=== PATIENT | male | born 1985 | race Caucasian/White ===

== ENCOUNTER 2016-03-03 15:15 | Emergency (ER) | payer OTHER ==
[~2016-03-03 15:15] MED LIST: FLOM5CAP PO; IBUP200C PO; PERC5TAB6 PO
[2016-03-03] MEDS ORDERED: KETOROLAC 30 MG/ML VIAL (J1885) As Ordered ONE (16:23)
[2016-03-03 16:46] LABS: BASO # 0.1 K/mm3 (0.0-0.2); BASO % 1.1 % (0.0-1.0); EOS # 0.3 K/mm3 (0.0-0.50); EOS % 3.9 % (0.0-3.0); LARGE UNSTAINED CELL # 0.1 K/mm3 (0.0-0.4); LARGE UNSTAINED CELL % 1.9 % (0.0-4.0); LYMPH % 26.4 % (24.0-44.0); MEAN CORPUSCULAR HEMOGLOBIN 30.7 pg (27.0-33.0); MEAN CORPUSCULAR HGB CONC 35.5 g/dl (32.0-36.5); MEAN CORPUSCULAR VOLUME 86.4 fl (80.0-96.0); MONO # 0.4 K/mm3 (0.0-0.8); MONO % 5.6 % (0.0-5.0); NEUTROPHILS # 4.4 K/mm3 (1.8-7.7); PLATELET COUNT, AUTOMATED 255 k/mm3 (150-450); WHITE BLOOD COUNT 7.1 K/mm3 (4.0-10.0)
[2016-03-03 16:55] LABS: ALBUMIN 4.2 GM/DL (3.2-5.2); ALBUMIN/GLOBULIN RATIO 1.24 (1.00-1.93); ALKALINE PHOSPHATASE 66 U/L (45-117); ALT/SGPT 78 U/L (12-78); ANION GAP 8 MEQ/L (8-16); AST/SGOT 33 U/L (15-37); BILIRUBIN,DIRECT 0.1 MG/DL (0.0-0.2); BILIRUBIN,TOTAL 0.3 MG/DL (0.2-1.0); BLOOD UREA NITROGEN 17 MG/DL (7-18); CARBON DIOXIDE LEVEL 24 MEQ/L (21-32); CHLORIDE LEVEL 108 MEQ/L (98-107); CREATININE FOR GFR 0.96 MG/DL (0.70-1.30); GLOMERULAR FILTRATION RATE > 60.0 (>60); GLUCOSE, FASTING 84 MG/DL (70-105); POTASSIUM SERUM 4.5 MEQ/L (3.5-5.1); SODIUM LEVEL 140 MEQ/L (136-145); TOTAL PROTEIN 7.6 GM/DL (6.4-8.2)
--- NOTE | 2016-03-03 17:54 | EDDOCDS ---
Physician Documentation [facility] Name: Manuel Duran Age: 30 yrs Sex: Male : 1985 Arrival Date: 03/03/2016 Time: 15:15 Bed I2 / M2 Private MD: [facility] - Ad[facility] Disposition: 03/03/16 17:46 Discharged to Home/Self Care. Impression: Urinary tract infection, site not specified - with mild hydronephrosis on the right kidney with stent in place, Otitis media, unspecified, right ear. - Condition is Stable. - Discharge Instructions: Otitis Media, Adult, Urinary Tract Infection. - Prescriptions for Amoxicillin 875 mg Oral Tablet - take 1 tablet by ORAL route every 12 hours for 10 days; 20 tablet. Cipro 500 mg Oral Tablet - take 1 tablet by ORAL route every 12 hours; 14 tablet. [place] 5- 325 mg Oral Tablet - take 1 tablet by ORAL route every 6 hours As needed MDD: 4 tabs; 15 tablet. - Medication Reconciliation, Local Pharmacy Hours form. - Follow up: Emergency Department; When: As needed; Reason: Worsening of conditions. Follow up: Vince Fam; When: at your scheduled appointment on 03/09/16; Reason: Recheck today's complaints, Continuance of care. - Problem is new. - Symptoms have improved. Historical: - Allergies: no known allergies; - Home Meds: 1. ketorolac 10 mg Oral tab 1 tab every 4 hours (Last dose: 03/01/2016) 2. "sinus medication" (Last dose: 03/02/2016 21:00) - PMHx: back pain; IBS; Kidney stones; - PSHx: surgery for kidney stones; Colonoscopy; right lithotripsy with stent placement; - Social history: Smoking status: Patient uses tobacco products, current every day smoker. Patient/guardian denies using alcohol, street drugs, No barriers to communication noted, The patient speaks fluent Georgian, Speaks appropriately for age. - Family history: Not pertinent. - : The pt / caregiver states he / she is not on anticoagulants. Home medication list is obtained from the patient. - Exposure Risk Screening:: None identified. Vital Signs: 03/03 15:16 BP 172 / 109; Pulse 81; Resp 18 S; Temp 97.7; Pulse Ox 97% on R/A; Weight 149.69 kg / dd6 330.01 lbs (M); Height 6 ft. 1 in. (185.42 cm) (R); 15:36 BP 146 / 86 RA Sitting (man/lg); rs6 17:37 BP 168 / 86; Pulse 59; Resp 18; Pulse Ox 97% ; Pain 0/10; jrd 17:50 Temp 97.1(O); dsf 15:16 Body Mass Index 43.54 (149.69 kg, 185.42 cm) dd6 MDM: 15:21 Recheck B/P ordered. dt4 16:14 ketorolac 30 mg IVP once ordered. dt4 16:14 IV Saline Lock ordered. dt4 16:14 Undress patient appropriately for examination ordered. dt4 16:15 Basic Metabolic Profile Ordered. EDMS 16:15 CBC with Diff Ordered. EDMS 16:15 Lipase Ordered. EDMS 16:15 Liver Profile Ordered. EDMS 16:15 Urinalysis Ordered. EDMS 16:15 Urine Culture Ordered. EDMS 16:15 CRP Ordered. EDMS 16:15 NOTHING BY MOUTH+DIET ordered. EDMS 16:15 Renal US Ordered. EDMS 16:24 [facility] Payment Agreement was scanned into [employer] and attached to record. dm19 16:24 Financial registration complete. dm19 Administered Medications: 16:30 Drug: ketorolac 30 mg [ketorolac 30 mg/mL (1 mL) injection solution (1 mL)] Route: IVP; dsf Site: right antecubital; Signatures: Dispatcher [employer] EDMS Dyan Bhatia RN RN dsf Jeanine Heller RN RN ttb Tschudi, Diane, ANNABELLA PA-Jose Rafael dt4 Ya Leung RN RN kc3 Simi Morales dm19 The chart was reviewed and I authenticate all verbal orders and agree with the evaluation and treatment provided.Attachments: 16:[address] [facility] Payment Agreement dm19 MTDD
--- NOTE | 2016-03-03 17:54 | EDDOCDS ---
Nurse's Notes [facility] Name: Manuel Duran Age: 30 yrs Sex: Male : 1985 Arrival Date: 03/03/2016 Time: 15:15 Bed I2 / M2 Private MD: [facility] - Ad[facility] Diagnosis: Urinary tract infection, site not specified-with mild hydronephrosis on the right kidney with stent in place;Otitis media, unspecified, right ear Presentation: 03/03 15:18 Presenting complaint: Patient states: he had a lithotripsy last week and pain is now on ttb both sides. Hematuria. Pt has stent on right. Acute neurological deficits are not present. Mechanism of Injury: recent surgery. Adult Sepsis Screening: The patient does not have new or worsening altered mentation. Patient's respiratory rate is less than 22. Systolic blood pressure is greater than 100. Patient has a qSOFA score of 0- Negative Sepsis Screen. Suicide/Homicide risk assessment- the patient denies having any suicidal and/or homicidal ideations and does not present with any other emotional, behavioral or mental health complaints. Status: Patient is not a director of in service education or dependent. Transition of care: patient was not received from another setting of care. 15:18 Acuity: CAM Level 3 ttb 15:18 Method Of Arrival: Walkin/Carried/Asstd ttb Triage Assessment: 15:21 General: Appears in no apparent distress, uncomfortable, well nourished, well groomed, ttb Behavior is appropriate for age, cooperative, pleasant. Pain: Location: bilat flank/back pain, right ear 6/10. HIV screening NA for this visit Offered previously. Neurological: Level of Consciousness is awake, alert. EENT: Reports nasal congestion nasal discharge pain in right ear. Cardiovascular: Chest pain is denied. Respiratory: No deficits noted. Airway is patent Denies cough, shortness of breath. GI: Reports lower abdominal pain, Denies nausea, vomiting. : Reports hematuria. Derm: Skin is normal. Musculoskeletal: Range of motion intact in all extremities. Historical: - Allergies: no known allergies; - Home Meds: 1. ketorolac 10 mg Oral tab 1 tab every 4 hours (Last dose: 03/01/2016) 2. "sinus medication" (Last dose: 03/02/2016 21:00) - PMHx: back pain; IBS; Kidney stones; - PSHx: surgery for kidney stones; Colonoscopy; right lithotripsy with stent placement; - Social history: Smoking status: Patient uses tobacco products, current every day smoker. Patient/guardian denies using alcohol, street drugs, No barriers to communication noted, The patient speaks fluent Irish, Speaks appropriately for age. - Family history: Not pertinent. - : The pt / caregiver states he / she is not on anticoagulants. Home medication list is obtained from the patient. - Exposure Risk Screening:: None identified. Screenin:31 Screening information is obtained from the patient. Fall risk: No risks identified. kc3 Assistance ADL's: requires no assistance with activities of daily living. Abuse/DV Screen: The patient / caregiver reports he/she is: not in a situation that causes fear, pain or injury. Nutritional screening: No deficits noted. Advance Directives: Currently, there is a health care proxy, Esteban Duran, father. home support is adequate. Assessment: 16:27 General: Appears in no apparent distress, comfortable, Behavior is appropriate for age, kc3 cooperative. Pain: Location: back, right lower quadrant and left lower quadrant. Neurological: Level of Consciousness is awake, alert, obeys commands, Oriented to person, place, time. Respiratory: Respiratory effort is even, unlabored, Respiratory pattern is regular, symmetrical. : Reports hematuria pain lower quadrant(s) prior to urination. Derm: Skin is pink, warm & dry. 17:50 General: Appears in no apparent distress, comfortable, Behavior is appropriate for age, dsf cooperative. Neurological: Level of Consciousness is awake, alert, Oriented to person, place, time. Cardiovascular: Capillary refill < 3 seconds. Respiratory: Airway is patent Respiratory effort is even, unlabored, Respiratory pattern is regular, symmetrical. Derm: Skin is pink, warm & dry. Vital Signs: 15:16 BP 172 / 109; Pulse 81; Resp 18 S; Temp 97.7; Pulse Ox 97% on R/A; Weight 149.69 kg dd6 (M); Height 6 ft. 1 in. (185.42 cm) (R); 15:36 BP 146 / 86 RA Sitting (man/lg); rs6 17:37 BP 168 / 86; Pulse 59; Resp 18; Pulse Ox 97% ; Pain 0/10; jrd 17:50 Temp 97.1(O); dsf 15:16 Body Mass Index 43.54 (149.69 kg, 185.42 cm) dd6 Vitals: 15:16 Log In Time: March 03, 2016 at 15:14. dd6 ED Course: 15:16 Patient visited by Pancho Hernandez PCA. dd6 15:16 [facility] is Private Physician. dd6 15:16 Patient moved to Waiting dd6 15:17 Patient moved to Pre RCE dd6 15:19 Triage Initiated ttb 15:36 Patient visited by Genevieve Polanco PCA. rs6 15:49 Patient moved to Triage 3 ead 16:05 [facility] dt4 16:05 Kateryna Patel MD is Attending Physician. dt4 16:05 Patient visited by Simi Hannah PA-C. dt4 16:16 Patient moved to I2 / M2 ttb 16:24 [facility] Payment Agreement was scanned into [employer] and attached to record. dm19 16:27 CRP Sent. kc3 16:27 Basic Metabolic Profile Sent. kc3 16:27 CBC with Diff Sent. kc3 16:27 Lipase Sent. kc3 16:27 Liver Profile Sent. kc3 16:31 The patient / caregiver is instructed regarding the plan of care and ED course. kc3 16:31 Inserted saline lock: 18 gauge in right antecubital area and blood collected. The kc3 patient tolerated the procedure well. 16:32 Patient visited by Ya Leung RN. kc3 17:38 Patient visited by Atif Nicole PCA. jrd 17:44 Vince Fam is Referral Physician. dt4 17:50 Discontinued lock intact, bleeding controlled, pressure dressing applied, No dsf redness/swelling at site. No procedures done that require assistance. Administered Medications: 16:30 Drug: ketorolac 30 mg [ketorolac 30 mg/mL (1 mL) injection solution (1 mL)] Route: IVP; dsf Site: right antecubital; Order Results: Lab Order: Basic Metabolic Profile; SPEC'M 03/03/16 16:17 Test: GLUCOSE, FASTING; Value: 84; Range: 70-105; Units: MG/DL; Status: F Test: BLOOD UREA NITROGEN; Value: 17; Range: 7-18; Units: MG/DL; Status: F Test: CREATININE FOR GFR; Value: 0.96; Range: 0.70-1.30; Units: MG/DL; Status: F Test: GLOMERULAR FILTRATION RATE; Value: > 60.0; Range: >60; Status: F Test: SODIUM LEVEL; Value: 140; Range: 136-145; Units: MEQ/L; Status: F Test: POTASSIUM SERUM; Value: 4.5; Range: 3.5-5.1; Units: MEQ/L; Status: F Test: CHLORIDE LEVEL; Value: 108; Range: 98-107; Abnormal: Above high normal; Units: MEQ/L; Status: F Test: CARBON DIOXIDE LEVEL; Value: 24; Range: 21-32; Units: MEQ/L; Status: F Test: ANION GAP; Value: 8; Range: 8-16; Units: MEQ/L; Status: F Test: CALCIUM LEVEL; Value: 9.0; Range: 8.5-10.1; Units: MG/DL; Status: F Test Note: ; Units are mL/min/1.73 m2 Chronic Kidney Disease Staging per NKF: Stage I & II GFR >=60 Normal to Mildly Decreased Stage III GFR 30-59 Moderately Decreased Stage IV GFR 15-29 Severely Decreased Stage V GFR <15 Very Little GFR Left ESRD GFR <15 on COATING MACHINE FEEDER Lab Order: CBC with Diff; SPEC'M 03/03/16 16:17 Test: WHITE BLOOD COUNT; Value: 7.1; Range: 4.0-10.0; Units: K/mm3; Status: F Test: RED BLOOD COUNT; Value: 5.51; Range: 4.30-6.10; Units: M/mm3; Status: F Test: HEMOGLOBIN; Value: 16.9; Range: 14.0-18.0; Units: g/dl; Status: F Test: HEMATOCRIT; Value: 47.5; Range: 42.0-52.0; Units: %; Status: F Test: MEAN CORPUSCULAR VOLUME; Value: 86.4; Range: 80.0-96.0; Units: fl; Status: F Test: MEAN CORPUSCULAR HEMOGLOBIN; Value: 30.7; Range: 27.0-33.0; Units: pg; Status: F Test: MEAN CORPUSCULAR HGB CONC; Value: 35.5; Range: 32.0-36.5; Units: g/dl; Status: F Test: RED CELL DISTRIBUTION WIDTH; Value: 13.0; Range: 11.5-14.5; Units: %; Status: F Test: PLATELET COUNT, AUTOMATED; Value: 255; Range: 150-450; Units: k/mm3; Status: F Test: NEUTROPHILS %; Value: 61.0; Range: 36.0-66.0; Units: %; Status: F Test: LYMPH %; Value: 26.4; Range: 24.0-44.0; Units: %; Status: F Test: MONO %; Value: 5.6; Range: 0.0-5.0; Abnormal: Above high normal; Units: %; Status: F Test: EOS %; Value: 3.9; Range: 0.0-3.0; Abnormal: Above high normal; Units: %; Status: F Test: BASO %; Value: 1.1; Range: 0.0-1.0; Abnormal: Above high normal; Units: %; Status: F Test: LARGE UNSTAINED CELL %; Value: 1.9; Range: 0.0-4.0; Units: %; Status: F Test: NEUTROPHILS #; Value: 4.4; Range: 1.8-7.7; Units: K/mm3; Status: F Test: LYMPH #; Value: 2.0; Range: 1.5-6.5; Units: K/mm3; Status: F Test: MONO #; Value: 0.4; Range: 0.0-0.8; Units: K/mm3; Status: F Test: EOS #; Value: 0.3; Range: 0.0-0.50; Units: K/mm3; Status: F Test: BASO #; Value: 0.1; Range: 0.0-0.2; Units: K/mm3; Status: F Test: LARGE UNSTAINED CELL #; Value: 0.1; Range: 0.0-0.4; Units: K/mm3; Status: F Lab Order: Lipase; SPEC'M 03/03/16 16:17 Test: LIPASE; Value: 142; Range: 73-393; Units: U/L; Status: F Lab Order: Liver Profile; SPEC'M 03/03/16 16:17 Test: AST/SGOT; Value: 33; Range: 15-37; Units: U/L; Status: F Test: ALT/SGPT; Value: 78; Range: 12-78; Units: U/L; Status: F Test: ALKALINE PHOSPHATASE; Value: 66; Range: 45-117; Units: U/L; Status: F Test: BILIRUBIN,TOTAL; Value: 0.3; Range: 0.2-1.0; Units: MG/DL; Status: F Test: BILIRUBIN,DIRECT; Value: 0.1; Range: 0.0-0.2; Units: MG/DL; Status: F Test: TOTAL PROTEIN; Value: 7.6; Range: 6.4-8.2; Units: GM/DL; Status: F Test: ALBUMIN; Value: 4.2; Range: 3.2-5.2; Units: GM/DL; Status: F Test: ALBUMIN/GLOBULIN RATIO; Value: 1.24; Range: 1.00-1.93; Status: F Lab Order: Urinalysis; SPEC'M 03/03/16 16:17 Test: APPEARANCE, URINE; Value: CLOUDY; Range: CLEAR; Abnormal: Above high normal; Status: F Test: COLOR, URINE; Value: YELLOW; Range: YELLOW; Status: F Test: PH,URINE; Value: 5.0; Range: 5.0-9.0; Units: UNITS; Status: F Test: SPECIFIC GRAVITY URINE AUTO; Value: 1.017; Range: 1.002-1.035; Status: F Test: PROTEIN, URINE AUTO; Value: 2+; Range: NEGATIVE; Abnormal: Above high normal; Units: mg/dL; Status: F Test: GLUCOSE, URINE (UA) AUTO; Value: NEGATIVE; Range: NEGATIVE; Units: mg/dL; Status: F Test: KETONE, URINE AUTO; Value: NEGATIVE; Range: NEGATIVE; Units: mg/dL; Status: F Test: UROBILINOGEN, URINE AUTO; Value: 0.2; Range: 0.0-2.0; Units: mg/dL; Status: F Test: BILIRUBIN, URINE AUTO; Value: NEGATIVE; Range: NEGATIVE; Status: F Test: NITRITE, URINE AUTO; Value: NEGATIVE; Range: NEGATIVE; Status: F Test: LEUKOCYTE ESTERASE, URINE AUTO; Value: 2+; Range: NEGATIVE; Abnormal: Above high normal; Status: F Test: BLOOD, URINE BLOOD; Value: 3+; Range: NEGATIVE; Abnormal: Above high normal; Status: F Test: WBC, URINE AUTO; Value: 22; Range: 0-3; Abnormal: Above high normal; Units: /HPF; Status: F Test: RBC, URINE AUTO; Value: TNTC; Range: 0-3; Abnormal: Above high normal; Units: /HPF; Status: F Test: BACTERIA, URINE AUTO; Value: 1+; Range: NEGATIVE; Abnormal: Above high normal; Status: F Test: SQUAMOUS EPITHELIAL CELL UR AU; Value: 0; Range: 0-6; Units: /HPF; Status: F Test: MUCUS, URINE; Value: SMALL; Range: NEGATIVE; Status: F Test: HYALINE CAST, URINE AUTO; Value: 0; Range: 0-1; Units: /LPF; Status: F Lab Order: CRP; SPEC'M 03/03/16 16:17 Test: C REACTIVE PROTEIN QUANTITATIV; Value: 0.44; Range: 0.00-0.30; Abnormal: Above high normal; Units: MG/DL; Status: F Outcome: 17:46 Discharge ordered by Provider. dt4 17:51 Discharge Assessment: Patient awake, alert and oriented x 3. No cognitive and/or dsf functional deficits noted. Patient verbalized understanding of disposition instructions. patient administered narcotics - no. The following High Risk Discharge criteria are identified: None. Discharged to home ambulatory. Condition: stable. Discharge instructions given to patient, Instructed on discharge instructions, follow up and referral plans. medication usage, no driving heavy equipment, Demonstrated understanding of instructions, medications, Pt was receptive of discharge instructions/ teaching. Prescriptions given X 3. Ultrasound Study completed. Property :Personal belongings accompany Pt. 17:54 Patient left the ED. dsf Signatures: Pancho Hernandez, REGIONAL BUSINESS MANAGER REGIONAL BUSINESS MANAGER dd6 Dyan Bhatia RN RN dsf Jeanine Heller RN RN Chyna YatesRN RN Simi Godoy, PA-C PA-C dt4 Atif Nicole, REGIONAL BUSINESS MANAGER REGIONAL BUSINESS MANAGER jrd Genevieve Polanco, REGIONAL BUSINESS MANAGER REGIONAL BUSINESS MANAGER rs6 Ya Leung,RN RN kc3 Simi Morales dm19 ROCÍOD
--- NOTE | 2016-03-03 18:23 | REP ---
RENAL AND BLADDER ULTRASOUND: Real-time sonographic evaluation of the kidneys is performed. Kidneys are normal in size and echotexture. Right kidney measuring 12.9 x 6.0 x 5.5 cm and left kidney 13.2 x 5.4 x 5.3 cm. There is mild right hydronephrosis. There is no left hydronephrosis. There may be a tiny subcentimeter stone in the upper pole of the left kidney. Urinary bladder is not well distended. There is a ureteral stent seen in the urinary bladder. IMPRESSION: Mild right hydronephrosis. No left hydronephrosis. Signed by Tomas Hansen MD 03/03/2016 07:17 P
--- NOTE | 2016-03-05 18:54 | EDDOCDS ---
Physician Documentation [facility] Name: Manuel Duran Age: 30 yrs Sex: Male : 1985 Arrival Date: 03/03/2016 Time: 15:15 Bed I2 / M2 Private MD: [facility] Disposition: 03/03/16 17:46 Discharged to Home/Self Care. Impression: Urinary tract infection, site not specified - with mild hydronephrosis on the right kidney with stent in place, Otitis media, unspecified, right ear. - Condition is Stable. - Discharge Instructions: Otitis Media, Adult, Urinary Tract Infection. - Prescriptions for Amoxicillin 875 mg Oral Tablet - take 1 tablet by ORAL route every 12 hours for 10 days; 20 tablet. Cipro 500 mg Oral Tablet - take 1 tablet by ORAL route every 12 hours; 14 tablet. [place] 5- 325 mg Oral Tablet - take 1 tablet by ORAL route every 6 hours As needed MDD: 4 tabs; 15 tablet. - Medication Reconciliation, Local Pharmacy Hours form. - Follow up: Emergency Department; When: As needed; Reason: Worsening of conditions. Follow up: Vince Fam; When: at your scheduled appointment on 03/09/16; Reason: Recheck today's complaints, Continuance of care. - Problem is new. - Symptoms have improved. Historical: - Allergies: no known allergies; - Home Meds: 1. ketorolac 10 mg Oral tab 1 tab every 4 hours (Last dose: 03/01/2016) 2. "sinus medication" (Last dose: 03/02/2016 21:00) - PMHx: back pain; IBS; Kidney stones; - PSHx: surgery for kidney stones; Colonoscopy; right lithotripsy with stent placement; - Social history: Smoking status: Patient uses tobacco products, current every day smoker. Patient/guardian denies using alcohol, street drugs, No barriers to communication noted, The patient speaks fluent Spanish, Speaks appropriately for age. - Family history: Not pertinent. - : The pt / caregiver states he / she is not on anticoagulants. Home medication list is obtained from the patient. - Exposure Risk Screening:: None identified. Vital Signs: 03/03 15:16 BP 172 / 109; Pulse 81; Resp 18 S; Temp 97.7; Pulse Ox 97% on R/A; Weight 149.69 kg / dd6 330.01 lbs (M); Height 6 ft. 1 in. (185.42 cm) (R); 15:36 BP 146 / 86 RA Sitting (man/lg); rs6 17:37 BP 168 / 86; Pulse 59; Resp 18; Pulse Ox 97% ; Pain 0/10; jrd 17:50 Temp 97.1(O); dsf 15:16 Body Mass Index 43.54 (149.69 kg, 185.42 cm) dd6 MDM: 15:21 Recheck B/P ordered. dt4 16:14 ketorolac 30 mg IVP once ordered. dt4 16:14 IV Saline Lock ordered. dt4 16:14 Undress patient appropriately for examination ordered. dt4 16:15 Basic Metabolic Profile Ordered. EDMS 16:15 CBC with Diff Ordered. EDMS 16:15 Lipase Ordered. EDMS 16:15 Liver Profile Ordered. EDMS 16:15 Urinalysis Ordered. EDMS 16:15 Urine Culture Ordered. EDMS 16:15 CRP Ordered. EDMS 16:15 NOTHING BY MOUTH+DIET ordered. EDMS 16:15 Renal US Ordered. EDMS 16:24 [facility] Payment Agreement was scanned into [employer] and attached to record. dm19 16:24 Financial registration complete. 03/05 08:23 T-Sheet-- Draft Copy was scanned into [employer] and attached to record. gb Administered Medications: 03/03 16:30 Drug: ketorolac 30 mg [ketorolac 30 mg/mL (1 mL) injection solution (1 mL)] Route: IVP; dsf Site: right antecubital; Signatures: Dispatcher [employer] EDMS Yael Quesada, Reg Reg gb Dyan Bhatia RN RN dsf Jeanine Heller RN RN ttb Simi Hannah PA-C PA-C dt4 Ya Leung RN RN apple3 Simi Morales dm19 The chart was reviewed and I authenticate all verbal orders and agree with the evaluation and treatment provided.Attachments: 16:24 [facility] Payment Agreement dm19 03/05 08:23 T-Sheet-- Draft Copy gb Chart Complete MTDD
--- NOTE | 2016-03-05 18:55 | EDDOCDS ---
Physician Documentation [facility] Name: Manuel Duran Age: 30 yrs Sex: Male : 1985 Arrival Date: 03/03/2016 Time: 15:15 Bed I2 / M2 Private MD: [facility] Disposition: 03/03/16 17:46 Discharged to Home/Self Care. Impression: Urinary tract infection, site not specified - with mild hydronephrosis on the right kidney with stent in place, Otitis media, unspecified, right ear. - Condition is Stable. - Discharge Instructions: Otitis Media, Adult, Urinary Tract Infection. - Prescriptions for Amoxicillin 875 mg Oral Tablet - take 1 tablet by ORAL route every 12 hours for 10 days; 20 tablet. Cipro 500 mg Oral Tablet - take 1 tablet by ORAL route every 12 hours; 14 tablet. [place] 5- 325 mg Oral Tablet - take 1 tablet by ORAL route every 6 hours As needed MDD: 4 tabs; 15 tablet. - Medication Reconciliation, Local Pharmacy Hours form. - Follow up: Emergency Department; When: As needed; Reason: Worsening of conditions. Follow up: Vince Fam; When: at your scheduled appointment on 03/09/16; Reason: Recheck today's complaints, Continuance of care. - Problem is new. - Symptoms have improved. Historical: - Allergies: no known allergies; - Home Meds: 1. ketorolac 10 mg Oral tab 1 tab every 4 hours (Last dose: 03/01/2016) 2. "sinus medication" (Last dose: 03/02/2016 21:00) - PMHx: back pain; IBS; Kidney stones; - PSHx: surgery for kidney stones; Colonoscopy; right lithotripsy with stent placement; - Social history: Smoking status: Patient uses tobacco products, current every day smoker. Patient/guardian denies using alcohol, street drugs, No barriers to communication noted, The patient speaks fluent Lao, Speaks appropriately for age. - Family history: Not pertinent. - : The pt / caregiver states he / she is not on anticoagulants. Home medication list is obtained from the patient. - Exposure Risk Screening:: None identified. Vital Signs: 03/03 15:16 BP 172 / 109; Pulse 81; Resp 18 S; Temp 97.7; Pulse Ox 97% on R/A; Weight 149.69 kg / dd6 330.01 lbs (M); Height 6 ft. 1 in. (185.42 cm) (R); 15:36 BP 146 / 86 RA Sitting (man/lg); rs6 17:37 BP 168 / 86; Pulse 59; Resp 18; Pulse Ox 97% ; Pain 0/10; jrd 17:50 Temp 97.1(O); dsf 15:16 Body Mass Index 43.54 (149.69 kg, 185.42 cm) dd6 MDM: 15:21 Recheck B/P ordered. dt4 16:14 ketorolac 30 mg IVP once ordered. dt4 16:14 IV Saline Lock ordered. dt4 16:14 Undress patient appropriately for examination ordered. dt4 16:15 Basic Metabolic Profile Ordered. EDMS 16:15 CBC with Diff Ordered. EDMS 16:15 Lipase Ordered. EDMS 16:15 Liver Profile Ordered. EDMS 16:15 Urinalysis Ordered. EDMS 16:15 Urine Culture Ordered. EDMS 16:15 CRP Ordered. EDMS 16:15 NOTHING BY MOUTH+DIET ordered. EDMS 16:15 Renal US Ordered. EDMS 16:24 [facility] Payment Agreement was scanned into [email or web address] and attached to record. dm19 16:24 Financial registration complete. 03/05 08:23 T-Sheet-- Draft Copy was scanned into [email or web address] and attached to record. gb Administered Medications: 03/03 16:30 Drug: ketorolac 30 mg [ketorolac 30 mg/mL (1 mL) injection solution (1 mL)] Route: IVP; dsf Site: right antecubital; Signatures: Dispatcher [employer] EDMS Yael Quesada, Reg Reg gb Dyan Bhatia RN RN dsf Jeanine Heller RN RN ttb Simi Hannah PA-C PA-C dt4 Ya Leung RN RN apple3 Simi Morales dm19 The chart was reviewed and I authenticate all verbal orders and agree with the evaluation and treatment provided.Attachments: 16:24 [facility] Payment Agreement dm19 03/05 08:23 T-Sheet-- Draft Copy gb Chart Complete MTDD
--- NOTE | 2016-03-05 18:55 | EDDOCDS ---
Nurse's Notes [facility] Name: Manuel Duran Age: 30 yrs Sex: Male : 1985 Arrival Date: 03/03/2016 Time: 15:15 Bed I2 / M2 Private MD: [facility] Diagnosis: Urinary tract infection, site not specified-with mild hydronephrosis on the right kidney with stent in place;Otitis media, unspecified, right ear Presentation: 03/03 15:18 Presenting complaint: Patient states: he had a lithotripsy last week and pain is now on ttb both sides. Hematuria. Pt has stent on right. Acute neurological deficits are not present. Mechanism of Injury: recent surgery. Adult Sepsis Screening: The patient does not have new or worsening altered mentation. Patient's respiratory rate is less than 22. Systolic blood pressure is greater than 100. Patient has a qSOFA score of 0- Negative Sepsis Screen. Suicide/Homicide risk assessment- the patient denies having any suicidal and/or homicidal ideations and does not present with any other emotional, behavioral or mental health complaints. 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 Transition of care: patient was not received from another setting of care. 15:18 Acuity: CAM Level 3 ttb 15:18 Method Of Arrival: Walkin/Carried/Asstd ttb Triage Assessment: 15:21 General: Appears in no apparent distress, uncomfortable, well nourished, well groomed, ttb Behavior is appropriate for age, cooperative, pleasant. Pain: Location: bilat flank/back pain, right ear 6/10. HIV screening NA for this visit Offered previously. Neurological: Level of Consciousness is awake, alert. EENT: Reports nasal congestion nasal discharge pain in right ear. Cardiovascular: Chest pain is denied. Respiratory: No deficits noted. Airway is patent Denies cough, shortness of breath. GI: Reports lower abdominal pain, Denies nausea, vomiting. : Reports hematuria. Derm: Skin is normal. Musculoskeletal: Range of motion intact in all extremities. Historical: - Allergies: no known allergies; - Home Meds: 1. ketorolac 10 mg Oral tab 1 tab every 4 hours (Last dose: 03/01/2016) 2. "sinus medication" (Last dose: 03/02/2016 21:00) - PMHx: back pain; IBS; Kidney stones; - PSHx: surgery for kidney stones; Colonoscopy; right lithotripsy with stent placement; - Social history: Smoking status: Patient uses tobacco products, current every day smoker. Patient/guardian denies using alcohol, street drugs, No barriers to communication noted, The patient speaks fluent Bahamian, Speaks appropriately for age. - Family history: Not pertinent. - : The pt / caregiver states he / she is not on anticoagulants. Home medication list is obtained from the patient. - Exposure Risk Screening:: None identified. Screenin:31 Screening information is obtained from the patient. Fall risk: No risks identified. kc3 Assistance ADL's: requires no assistance with activities of daily living. Abuse/DV Screen: The patient / caregiver reports he/she is: not in a situation that causes fear, pain or injury. Nutritional screening: No deficits noted. Advance Directives: Currently, there is a health care proxy, Esteban Duran, father. home support is adequate. Assessment: 16:27 General: Appears in no apparent distress, comfortable, Behavior is appropriate for age, kc3 cooperative. Pain: Location: back, right lower quadrant and left lower quadrant. Neurological: Level of Consciousness is awake, alert, obeys commands, Oriented to person, place, time. Respiratory: Respiratory effort is even, unlabored, Respiratory pattern is regular, symmetrical. : Reports hematuria pain lower quadrant(s) prior to urination. Derm: Skin is pink, warm & dry. 17:50 General: Appears in no apparent distress, comfortable, Behavior is appropriate for age, dsf cooperative. Neurological: Level of Consciousness is awake, alert, Oriented to person, place, time. Cardiovascular: Capillary refill < 3 seconds. Respiratory: Airway is patent Respiratory effort is even, unlabored, Respiratory pattern is regular, symmetrical. Derm: Skin is pink, warm & dry. Vital Signs: 15:16 BP 172 / 109; Pulse 81; Resp 18 S; Temp 97.7; Pulse Ox 97% on R/A; Weight 149.69 kg dd6 (M); Height 6 ft. 1 in. (185.42 cm) (R); 15:36 BP 146 / 86 RA Sitting (man/lg); rs6 17:37 BP 168 / 86; Pulse 59; Resp 18; Pulse Ox 97% ; Pain 0/10; jrd 17:50 Temp 97.1(O); dsf 15:16 Body Mass Index 43.54 (149.69 kg, 185.42 cm) dd6 Vitals: 15:16 Log In Time: March 03, 2016 at 15:14. dd6 ED Course: 15:16 Patient visited by Pancho Hernandez PCA. dd6 15:16 [facility] is Private Physician. dd6 15:16 Patient moved to Waiting dd6 15:17 Patient moved to Pre RCE dd6 15:19 Triage Initiated ttb 15:36 Patient visited by Genevieve Polanco, JS. rs6 15:49 Patient moved to Triage 3 ead 16:05 [facility]. dt4 16:05 Kateryna Patel MD is Attending Physician. dt4 16:05 Patient visited by Simi Hannah PA-C. dt4 16:16 Patient moved to I2 / M2 ttb 16:24 [facility] Payment Agreement was scanned into [employer] and attached to record. dm19 16:27 CRP Sent. kc3 16:27 Basic Metabolic Profile Sent. kc3 16:27 CBC with Diff Sent. kc3 16:27 Lipase Sent. kc3 16:27 Liver Profile Sent. kc3 16:31 The patient / caregiver is instructed regarding the plan of care and ED course. kc3 16:31 Inserted saline lock: 18 gauge in right antecubital area and blood collected. The kc3 patient tolerated the procedure well. 16:32 Patient visited by Ya Leung RN. kc3 17:38 Patient visited by Atif Nicole PCA. jrd 17:44 Vince Fam is Referral Physician. dt4 17:50 Discontinued lock intact, bleeding controlled, pressure dressing applied, No dsf redness/swelling at site. No procedures done that require assistance. 19:14 Renal US Returned. EDMS 03/05 08:23 T-Sheet-- Draft Copy was scanned into [employer] and attached to record. gb Administered Medications: 03/03 16:30 Drug: ketorolac 30 mg [ketorolac 30 mg/mL (1 mL) injection solution (1 mL)] Route: IVP; dsf Site: right antecubital; Order Results: Lab Order: Basic Metabolic Profile; SPEC'M 03/03/16 16:17 Test: GLUCOSE, FASTING; Value: 84; Range: 70-105; Units: MG/DL; Status: F Test: BLOOD UREA NITROGEN; Value: 17; Range: 7-18; Units: MG/DL; Status: F Test: CREATININE FOR GFR; Value: 0.96; Range: 0.70-1.30; Units: MG/DL; Status: F Test: GLOMERULAR FILTRATION RATE; Value: > 60.0; Range: >60; Status: F Test: SODIUM LEVEL; Value: 140; Range: 136-145; Units: MEQ/L; Status: F Test: POTASSIUM SERUM; Value: 4.5; Range: 3.5-5.1; Units: MEQ/L; Status: F Test: CHLORIDE LEVEL; Value: 108; Range: 98-107; Abnormal: Above high normal; Units: MEQ/L; Status: F Test: CARBON DIOXIDE LEVEL; Value: 24; Range: 21-32; Units: MEQ/L; Status: F Test: ANION GAP; Value: 8; Range: 8-16; Units: MEQ/L; Status: F Test: CALCIUM LEVEL; Value: 9.0; Range: 8.5-10.1; Units: MG/DL; Status: F Test Note: ; Units are mL/min/1.73 m2 Chronic Kidney Disease Staging per NKF: Stage I & II GFR >=60 Normal to Mildly Decreased Stage III GFR 30-59 Moderately Decreased Stage IV GFR 15-29 Severely Decreased Stage V GFR <15 Very Little GFR Left ESRD GFR <15 on 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 Lab Order: CBC with Diff; SPEC'M 03/03/16 16:17 Test: WHITE BLOOD COUNT; Value: 7.1; Range: 4.0-10.0; Units: K/mm3; Status: F Test: RED BLOOD COUNT; Value: 5.51; Range: 4.30-6.10; Units: M/mm3; Status: F Test: HEMOGLOBIN; Value: 16.9; Range: 14.0-18.0; Units: g/dl; Status: F Test: HEMATOCRIT; Value: 47.5; Range: 42.0-52.0; Units: %; Status: F Test: MEAN CORPUSCULAR VOLUME; Value: 86.4; Range: 80.0-96.0; Units: fl; Status: F Test: MEAN CORPUSCULAR HEMOGLOBIN; Value: 30.7; Range: 27.0-33.0; Units: pg; Status: F Test: MEAN CORPUSCULAR HGB CONC; Value: 35.5; Range: 32.0-36.5; Units: g/dl; Status: F Test: RED CELL DISTRIBUTION WIDTH; Value: 13.0; Range: 11.5-14.5; Units: %; Status: F Test: PLATELET COUNT, AUTOMATED; Value: 255; Range: 150-450; Units: k/mm3; Status: F Test: NEUTROPHILS %; Value: 61.0; Range: 36.0-66.0; Units: %; Status: F Test: LYMPH %; Value: 26.4; Range: 24.0-44.0; Units: %; Status: F Test: MONO %; Value: 5.6; Range: 0.0-5.0; Abnormal: Above high normal; Units: %; Status: F Test: EOS %; Value: 3.9; Range: 0.0-3.0; Abnormal: Above high normal; Units: %; Status: F Test: BASO %; Value: 1.1; Range: 0.0-1.0; Abnormal: Above high normal; Units: %; Status: F Test: LARGE UNSTAINED CELL %; Value: 1.9; Range: 0.0-4.0; Units: %; Status: F Test: NEUTROPHILS #; Value: 4.4; Range: 1.8-7.7; Units: K/mm3; Status: F Test: LYMPH #; Value: 2.0; Range: 1.5-6.5; Units: K/mm3; Status: F Test: MONO #; Value: 0.4; Range: 0.0-0.8; Units: K/mm3; Status: F Test: EOS #; Value: 0.3; Range: 0.0-0.50; Units: K/mm3; Status: F Test: BASO #; Value: 0.1; Range: 0.0-0.2; Units: K/mm3; Status: F Test: LARGE UNSTAINED CELL #; Value: 0.1; Range: 0.0-0.4; Units: K/mm3; Status: F Lab Order: Lipase; SPEC'M 03/03/16 16:17 Test: LIPASE; Value: 142; Range: 73-393; Units: U/L; Status: F Lab Order: Liver Profile; SPEC'M 03/03/16 16:17 Test: AST/SGOT; Value: 33; Range: 15-37; Units: U/L; Status: F Test: ALT/SGPT; Value: 78; Range: 12-78; Units: U/L; Status: F Test: ALKALINE PHOSPHATASE; Value: 66; Range: 45-117; Units: U/L; Status: F Test: BILIRUBIN,TOTAL; Value: 0.3; Range: 0.2-1.0; Units: MG/DL; Status: F Test: BILIRUBIN,DIRECT; Value: 0.1; Range: 0.0-0.2; Units: MG/DL; Status: F Test: TOTAL PROTEIN; Value: 7.6; Range: 6.4-8.2; Units: GM/DL; Status: F Test: ALBUMIN; Value: 4.2; Range: 3.2-5.2; Units: GM/DL; Status: F Test: ALBUMIN/GLOBULIN RATIO; Value: 1.24; Range: 1.00-1.93; Status: F Lab Order: Urinalysis; [facility]' 03/03/16 16:17 Test: APPEARANCE, URINE; Value: CLOUDY; Range: CLEAR; Abnormal: Above high normal; Status: F Test: COLOR, URINE; Value: YELLOW; Range: YELLOW; Status: F Test: PH,URINE; Value: 5.0; Range: 5.0-9.0; Units: UNITS; Status: F Test: SPECIFIC GRAVITY URINE AUTO; Value: 1.017; Range: 1.002-1.035; Status: F Test: PROTEIN, URINE AUTO; Value: 2+; Range: NEGATIVE; Abnormal: Above high normal; Units: mg/dL; Status: F Test: GLUCOSE, URINE (UA) AUTO; Value: NEGATIVE; Range: NEGATIVE; Units: mg/dL; Status: F Test: KETONE, URINE AUTO; Value: NEGATIVE; Range: NEGATIVE; Units: mg/dL; Status: F Test: UROBILINOGEN, URINE AUTO; Value: 0.2; Range: 0.0-2.0; Units: mg/dL; Status: F Test: BILIRUBIN, URINE AUTO; Value: NEGATIVE; Range: NEGATIVE; Status: F Test: NITRITE, URINE AUTO; Value: NEGATIVE; Range: NEGATIVE; Status: F Test: LEUKOCYTE ESTERASE, URINE AUTO; Value: 2+; Range: NEGATIVE; Abnormal: Above high normal; Status: F Test: BLOOD, URINE BLOOD; Value: 3+; Range: NEGATIVE; Abnormal: Above high normal; Status: F Test: WBC, URINE AUTO; Value: 22; Range: 0-3; Abnormal: Above high normal; Units: /HPF; Status: F Test: RBC, URINE AUTO; Value: TNTC; Range: 0-3; Abnormal: Above high normal; Units: /HPF; Status: F Test: BACTERIA, URINE AUTO; Value: 1+; Range: NEGATIVE; Abnormal: Above high normal; Status: F Test: SQUAMOUS EPITHELIAL CELL UR AU; Value: 0; Range: 0-6; Units: /HPF; Status: F Test: MUCUS, URINE; Value: SMALL; Range: NEGATIVE; Status: F Test: HYALINE CAST, URINE AUTO; Value: 0; Range: 0-1; Units: /LPF; Status: F Lab Order: Urine Culture; SPEC'M 03/03/16 16:17 Test: URINE CULTURE; Value: URINE CULTURE RESULT NO GROWTH; Status: F Lab Order: CRP; SPEC'M 03/03/16 16:17 Test: C REACTIVE PROTEIN QUANTITATIV; Value: 0.44; Range: 0.00-0.30; Abnormal: Above high normal; Units: MG/DL; Status: F Radiology Order: Renal US Test: Renal US REASON FOR EXAMINATION: RECENT LITHOTRIPSY, BILAT FLANK PAIN; RENAL AND BLADDER ULTRASOUND:; ; Real-time sonographic evaluation of the kidneys is performed. Kidneys are normal; in size and echotexture. Right kidney measuring 12.9 x 6.0 x 5.5 cm and left; kidney 13.2 x 5.4 x 5.3 cm. There is mild right hydronephrosis. There is no left; hydronephrosis. There may be a tiny subcentimeter stone in the upper pole of the; left kidney. Urinary bladder is not well distended. There is a ureteral stent; seen in the urinary bladder.; ; IMPRESSION:; ; Mild right hydronephrosis. No left hydronephrosis.; ; ; Signed by; Tomas Hansen MD 03/03/2016 07:17 P; Outcome: 17:46 Discharge ordered by Provider. dt4 17:51 Discharge Assessment: Patient awake, alert and oriented x 3. No cognitive and/or dsf functional deficits noted. Patient verbalized understanding of disposition instructions. patient administered narcotics - no. The following High Risk Discharge criteria are identified: None. Discharged to home ambulatory. Condition: stable. Discharge instructions given to patient, Instructed on discharge instructions, follow up and referral plans. medication usage, no driving heavy equipment, Demonstrated understanding of instructions, medications, Pt was receptive of discharge instructions/ teaching. Prescriptions given X 3. Ultrasound Study completed. Property :Personal belongings accompany Pt. 17:54 Patient left the ED. dsf Signatures: Dispatcher [employer] EDMS Yael Quesada, Reg Reg gb Pancho Hernandez, DRYWALL PROFESSIONAL DRYWALL PROFESSIONAL dd6 Dyan Bhatia,JIMENEZ RN dsf Jeanine Heller, RN RN ttChyna Ventura,RN RN Simi Godoy, PA-C PA-C dt4 Atif Nicole, DRYWALL PROFESSIONAL DRYWALL PROFESSIONAL jrd Genevieve Polanco, DRYWALL PROFESSIONAL DRYWALL PROFESSIONAL rs6 Ya Leung,JIMENEZ RN apple3 Simi Morales dm19 Chart Complete MTDD
== END 2016-03-03 17:54 | disposition home or self-care (01) ==
LOC: M ED 15:15
DX: H66.91 Otitis media, unspecified, right ear (principal); N39.0 Urinary tract infection, site not specified; N13.30 Unspecified hydronephrosis; Z96.0 Presence of urogenital implants; M54.9 Dorsalgia, unspecified; K58.9 Irritable bowel syndrome, unspecified; Z87.442 Personal history of urinary calculi; F17.210 Nicotine dependence, cigarettes, uncomplicated
CPT/HCPCS: 36415; 76775; 80048; 80076; 81001; 83690; 85025; 86140; 87086; 96374; 99284; J1885

== ENCOUNTER 2016-03-08 22:59 | Emergency (ER) | payer OTHER ==
[2016-03-08 23:33] LABS: YEAST LIKE CELL URINE AUTO LARGE
== END 2016-03-09 02:28 | disposition left against medical advice (07) ==
LOC: M ED 22:59
DX: R10.9 Unspecified abdominal pain (principal); M54.9 Dorsalgia, unspecified; K58.9 Irritable bowel syndrome, unspecified; F17.210 Nicotine dependence, cigarettes, uncomplicated; Z79.899 Other long term (current) drug therapy

== ENCOUNTER 2016-03-17 13:34 | Emergency (ER) | payer OTHER ==
[2016-03-17] MEDS ORDERED: KETOROLAC 30 MG/ML VIAL (J1885) As Ordered ONE (15:00)
[2016-03-17] MEDS ORDERED: GASTROGRAFIN SOLUTION 30ML (Q9963) As Ordered ONE (15:09)
[2016-03-17 15:18] LABS: BASO # 0.1 K/mm3 (0.0-0.2); BASO % 1.4 % (0.0-1.0); EOS # 0.3 K/mm3 (0.0-0.50); EOS % 4.2 % (0.0-3.0); LARGE UNSTAINED CELL # 0.1 K/mm3 (0.0-0.4); LARGE UNSTAINED CELL % 1.4 % (0.0-4.0); LYMPH % 31.2 % (24.0-44.0); MEAN CORPUSCULAR HEMOGLOBIN 30.7 pg (27.0-33.0); MEAN CORPUSCULAR HGB CONC 35.5 g/dl (32.0-36.5); MEAN CORPUSCULAR VOLUME 86.6 fl (80.0-96.0); MONO # 0.3 K/mm3 (0.0-0.8); MONO % 5.2 % (0.0-5.0); NEUTROPHILS # 3.5 K/mm3 (1.8-7.7); NEUTROPHILS % 56.6 % (36.0-66.0); PLATELET COUNT, AUTOMATED 246 k/mm3 (150-450); RED CELL DISTRIBUTION WIDTH 12.9 % (11.5-14.5); WHITE BLOOD COUNT 6.2 K/mm3 (4.0-10.0)
[2016-03-17 15:34] LABS: ALBUMIN 4.2 GM/DL (3.2-5.2); ALBUMIN/GLOBULIN RATIO 1.35 (1.00-1.93); ALKALINE PHOSPHATASE 71 U/L (45-117); ALT/SGPT 54 U/L (12-78); AMYLASE 39 U/L (25-115); ANION GAP 9 MEQ/L (8-16); AST/SGOT 22 U/L (15-37); BILIRUBIN,DIRECT < 0.1 MG/DL (0.0-0.2); BILIRUBIN,TOTAL 0.2 MG/DL (0.2-1.0); BLOOD UREA NITROGEN 20 MG/DL (7-18); CALCIUM LEVEL 9.1 MG/DL (8.5-10.1); CARBON DIOXIDE LEVEL 24 MEQ/L (21-32); CHLORIDE LEVEL 109 MEQ/L (98-107); CREATININE FOR GFR 1.13 MG/DL (0.70-1.30); GLOMERULAR FILTRATION RATE > 60.0 (>60); GLUCOSE, FASTING 93 MG/DL (70-105); POTASSIUM SERUM 4.4 MEQ/L (3.5-5.1); SODIUM LEVEL 142 MEQ/L (136-145); TOTAL PROTEIN 7.3 GM/DL (6.4-8.2)
--- NOTE | 2016-03-17 17:43 | REP ---
CT ABDOMEN AND PELVIS WITH ORAL CONTRAST ONLY, 03/17/2016: Comparison made with prior CT abdomen and pelvis 02/25/2016 at which time the patient had an obstructing 7 x 9 mm calculus within the right proximal ureter. At this time there is mild to moderate residual right renal caliectasis and pelviectasis with tapering of the pelvic portion of the right ureter. There is no residual stone within the right ureter. A small amount of periureteral stranding. There are a few tiny nonobstructing left nephrocalculi. Mild edematous changes are seen in the right kidney. The stomach and small bowel are within normal limits. The terminal ileum and the appendix are normal. Abdominal aorta is of normal course and caliber. The bladder is contracted. The prostate is not enlarged. There is mild to moderate diverticulosis within the sigmoid colon. There is no free air or ascites. IMPRESSION: Mild to moderate residual right hydronephrosis and hydroureter persists despite interval passage/resolution of the previously obstructing right proximal ureteral stone. Sigmoid diverticulosis. MTDD
[2016-03-17] MEDS ORDERED: NORCO, ANEXSIA 5/325MG TABLET (HYDROcodone/ACETAMINOPHEN) As Ordered ONE (18:09)
--- NOTE | 2016-03-17 18:18 | EDDOCDS ---
Nurse's Notes [facility] Name: Manuel Duran Age: 30 yrs Sex: Male : 1985 Arrival Date: 03/17/2016 Time: 13:34 Bed I4 / M4 Private MD: Trini Yeboah K. Diagnosis: Lower abdominal pain, unspecified-RIGHT LATERAL ABDOMINAL PAIN, WITH RIGHT HYDROURETERONEPHROSIS S/P STENT REMOVAL Presentation: 03/17 13:41 Presenting complaint: Patient states: right side abdominal pain radiating to right ck1 flank for one week. C/O right ear "plugged". Risk factors: the patient reports not having a history of previous torsion. Adult Sepsis Screening: The patient does not have new or worsening altered mentation. Patient's respiratory rate is less than 22. Systolic blood pressure is greater than 100. Patient has a qSOFA score of 0- Negative Sepsis Screen. Suicide/Homicide risk assessment- the patient denies having any suicidal and/or homicidal ideations and does not present with any other emotional, behavioral or mental health complaints. Status: Patient is not a agricultural services director or dependent. Transition of care: patient was not received from another setting of care. 13:41 Acuity: CAM Level 3 ck1 13:41 Method Of Arrival: Walkin/Carried/Asstd ck1 Triage Assessment: 13:44 General: Appears in no apparent distress, comfortable, Behavior is appropriate for age, ck1 cooperative. Pain: Location: right upper quadrant and right lower quadrant Pain currently is 2 out of 10 on a pain scale. HIV screening NA for this visit Offered previously. Neurological: Level of Consciousness is awake, alert, obeys commands, Oriented to person, place, time. Respiratory: Respiratory effort is unlabored, Respiratory pattern is regular, symmetrical. GI: Denies nausea, vomiting. : Denies burning with urination, urinary frequency. Derm: Skin is intact, is healthy with good turgor, Skin is pink, warm & dry. Historical: - Allergies: No known drug Allergies; - Home Meds: 1. Dicyclomine Unknown Oral PRN (Last dose: 03/16/2016 20:00) - PMHx: Kidney stones; IBS; back pain; - PSHx: Lithotripsy; Colonoscopy; - Social history: Smoking status: Patient uses tobacco products, heavy tobacco smoker. No barriers to communication noted, The patient speaks fluent Georgian, Speaks appropriately for age. - : The pt / caregiver states he / she is not on anticoagulants. Home medication list is obtained from the patient. - Exposure Risk Screening:: None identified. Screenin:15 Screening information is obtained from the patient. Fall risk: No risks identified. jmk Assistance ADL's: requires no assistance with activities of daily living. Abuse/DV Screen: The patient / caregiver reports he/she is: not in a situation that causes fear, pain or injury. Nutritional screening: No deficits noted. Advance Directives: Currently, there is no health care proxy. There is no active DNR order. There is no living will. 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 Advance directive information has not previously been placed in an [facility] medical record. home support is adequate. Assessment: 15:17 General: Appears in no apparent distress. Cardiovascular: No deficits noted. jmk Respiratory: Onset: The symptoms/episode began/occurred No deficits noted. GI: Abdomen is non- distended obese, Bowel sounds present X 4 quads. Abd is soft X 4 quads Abd is tender to palpation in right upper quadrant and right lower quadrant. 16:49 General: Appears reports 2/10 discomfort , yet readily bends over to put shoes on, and jmk ambulates with brisk upright gait.. Vital Signs: 13:36 BP 165 / 86; Pulse 67; Resp 18; Temp 96.8(O); Pulse Ox 97% on R/A; Weight 154.22 kg elp (M); Height 6 ft. 1 in. (185.42 cm); 18:15 BP 134 / 72; Pulse 70; Resp 16; Temp 98.2; jmk 13:36 Body Mass Index 44.86 (154.22 kg, 185.42 cm) [facility] Vitals: 13:36 Log In Time: March 17, 2016 at 13:34. [facility] ED Course: 13:36 Patient visited by Trini Burks PCA. elp 13:36 Trini Yeboah is Private Physician. elp 13:36 Patient moved to Waiting elp 13:37 Patient visited by Trini Burks PCA. elp 13:37 Patient moved to Pre RCE elp 13:42 Triage Initiated ck1 13:45 Patient moved to Triage 2 ck1 13:46 Patient moved to Pre RCE ck1 13:46 Patient moved to Triage 2 ck1 13:46 Patient moved to Pre RCE ck1 14:04 Patient moved to Triage 1 rs6 14:10 Urinalysis Sent. rs6 14:10 Urine Culture Sent. rs6 14:14 Simi Hannah [facility]-C [facility]. dt4 14:14 Henry Lorenzo MD is Attending Physician. dt4 14:14 Patient visited by Simi Hannah PA-C. dt4 14:40 Patient moved to I4 / M4 [facility] 15:04 Patient visited by Chyna Retana RN. ead 15:04 Inserted peripheral IV: 20gauge IV in right antecubital area and blood collected. ead Patient tolerated the procedure well. 15:04 CRP Sent. ead 15:04 Basic Metabolic Profile Sent. ead 15:04 Amylase Sent. ead 15:04 Liver Profile Sent. ead 15:04 Lipase Sent. ead 15:04 CBC with Diff Sent. ead 15:17 Patient visited by Gerald Mckeon,JIMENEZ. jmk 15:27 [facility] Payment Agreement was scanned into [employer] and attached to record. gjb 15:35 Patient name changed from Manuel\\S\\Emmanuel\\S\\Renee\\S\\ to Manuel\\S\\B\\S\\Renee. EDMS 16:51 Patient visited by Gerald Mckeon,JIMENEZ. jmk 17:46 CT ABD & PELVIS: Oral Contrast Only Returned. EDMS 18:01 Patient visited by Simi Hannah PA-C. dt4 18:03 Vince Fam is Referral Physician. dt4 18:15 The patient / caregiver is instructed regarding the plan of care and ED course. jmk 18:15 Discontinued lock intact, bleeding controlled, pressure dressing applied, No jmk redness/swelling at site. No procedures done that require assistance. Administered Medications: 15:08 Drug: NS 0.9% 1000 ml Route: IV; Rate: bolus; Site: right antecubital; jmk 16:23 Follow up: IV Status: Completed infusion jmk 15:09 Drug: ketorolac 30 mg [ketorolac 30 mg/mL (1 mL) injection solution (1 mL)] Route: IVP; k Site: right antecubital; 15:16 Drug: Diatrizoate Meglumine & Sodium 10 ml [diatrizoate meglumine and diat.sodium 66 jmk %-10 % oral solution (10 mL)] Route: PO; 15:40 Drug: Diatrizoate Meglumine & Sodium 10 ml [diatrizoate meglumine and diat.sodium 66 jmk %-10 % oral solution (10 mL)] Route: PO; Order Results: Lab Order: Urinalysis; SPEC'M 03/17/16 14:08 Test: APPEARANCE, URINE; Value: CLOUDY; Range: CLEAR; Abnormal: Above high normal; Status: F Test: COLOR, URINE; Value: YELLOW; Range: YELLOW; Status: F Test: PH,URINE; Value: 5.0; Range: 5.0-9.0; Units: UNITS; Status: F Test: SPECIFIC GRAVITY URINE AUTO; Value: 1.016; Range: 1.002-1.035; Status: F Test: PROTEIN, URINE AUTO; Value: 1+; Range: NEGATIVE; Abnormal: Above high normal; Units: mg/dL; Status: F Test: GLUCOSE, URINE (UA) AUTO; Value: NEGATIVE; Range: NEGATIVE; Units: mg/dL; Status: F Test: KETONE, URINE AUTO; Value: NEGATIVE; Range: NEGATIVE; Units: mg/dL; Status: F Test: UROBILINOGEN, URINE AUTO; Value: 0.2; Range: 0.0-2.0; Units: mg/dL; Status: F Test: BILIRUBIN, URINE AUTO; Value: NEGATIVE; Range: NEGATIVE; Status: F Test: NITRITE, URINE AUTO; Value: NEGATIVE; Range: NEGATIVE; Status: F Test: LEUKOCYTE ESTERASE, URINE AUTO; Value: TRACE; Range: NEGATIVE; Abnormal: Above high normal; Status: F Test: BLOOD, URINE BLOOD; Value: 3+; Range: NEGATIVE; Abnormal: Above high normal; Status: F Test: WBC, URINE AUTO; Value: 22; Range: 0-3; Abnormal: Above high normal; Units: /HPF; Status: F Test: RBC, URINE AUTO; Value: TNTC; Range: 0-3; Abnormal: Above high normal; Units: /HPF; Status: F Test: BACTERIA, URINE AUTO; Value: NEGATIVE; Range: NEGATIVE; Status: F Test: SQUAMOUS EPITHELIAL CELL UR AU; Value: 0; Range: 0-6; Units: /HPF; Status: F Test: MUCUS, URINE; Value: SMALL; Range: NEGATIVE; Status: F Test: HYALINE CAST, URINE AUTO; Value: 0; Range: 0-1; Units: /LPF; Status: F Lab Order: Amylase; SPEC' 03/17/16 15:03 Test: AMYLASE; Value: 39; Range: 25-115; Units: U/L; Status: F Lab Order: Basic Metabolic Profile; SPEC' 03/17/16 15:03 Test: GLUCOSE, FASTING; Value: 93; Range: 70-105; Units: MG/DL; Status: F Test: BLOOD UREA NITROGEN; Value: 20; Range: 7-18; Abnormal: Above high normal; Units: MG/DL; Status: F Test: CREATININE FOR GFR; Value: 1.13; Range: 0.70-1.30; Units: MG/DL; Status: F Test: GLOMERULAR FILTRATION RATE; Value: > 60.0; Range: >60; Status: F Test: SODIUM LEVEL; Value: 142; Range: 136-145; Units: MEQ/L; Status: F Test: POTASSIUM SERUM; Value: 4.4; Range: 3.5-5.1; Units: MEQ/L; Status: F Test: CHLORIDE LEVEL; Value: 109; Range: 98-107; Abnormal: Above high normal; Units: MEQ/L; Status: F Test: CARBON DIOXIDE LEVEL; Value: 24; Range: 21-32; Units: MEQ/L; Status: F Test: ANION GAP; Value: 9; Range: 8-16; Units: MEQ/L; Status: F Test: CALCIUM LEVEL; Value: 9.1; Range: 8.5-10.1; Units: MG/DL; Status: F Test Note: ; Units are mL/min/1.73 m2 Chronic Kidney Disease Staging per NKF: Stage I & II GFR >=60 Normal to Mildly Decreased Stage III GFR 30-59 Moderately Decreased Stage IV GFR 15-29 Severely Decreased Stage V GFR <15 Very Little GFR Left ESRD GFR <15 on [facility]AGENT Lab Order: CBC with Diff; SPEC' 03/17/16 15:03 Test: WHITE BLOOD COUNT; Value: 6.2; Range: 4.0-10.0; Units: K/mm3; Status: F Test: RED BLOOD COUNT; Value: 5.03; Range: 4.30-6.10; Units: M/mm3; Status: F Test: HEMOGLOBIN; Value: 15.5; Range: 14.0-18.0; Units: g/dl; Status: F Test: HEMATOCRIT; Value: 43.6; Range: 42.0-52.0; Units: %; Status: F Test: MEAN CORPUSCULAR VOLUME; Value: 86.6; Range: 80.0-96.0; Units: fl; Status: F Test: MEAN CORPUSCULAR HEMOGLOBIN; Value: 30.7; Range: 27.0-33.0; Units: pg; Status: F Test: MEAN CORPUSCULAR HGB CONC; Value: 35.5; Range: 32.0-36.5; Units: g/dl; Status: F Test: RED CELL DISTRIBUTION WIDTH; Value: 12.9; Range: 11.5-14.5; Units: %; Status: F Test: PLATELET COUNT, AUTOMATED; Value: 246; Range: 150-450; Units: k/mm3; Status: F Test: NEUTROPHILS %; Value: 56.6; Range: 36.0-66.0; Units: %; Status: F Test: LYMPH %; Value: 31.2; Range: 24.0-44.0; Units: %; Status: F Test: MONO %; Value: 5.2; Range: 0.0-5.0; Abnormal: Above high normal; Units: %; Status: F Test: EOS %; Value: 4.2; Range: 0.0-3.0; Abnormal: Above high normal; Units: %; Status: F Test: BASO %; Value: 1.4; Range: 0.0-1.0; Abnormal: Above high normal; Units: %; Status: F Test: LARGE UNSTAINED CELL %; Value: 1.4; Range: 0.0-4.0; Units: %; Status: F Test: NEUTROPHILS #; Value: 3.5; Range: 1.8-7.7; Units: K/mm3; Status: F Test: LYMPH #; Value: 2.0; Range: 1.5-6.5; Units: K/mm3; Status: F Test: MONO #; Value: 0.3; Range: 0.0-0.8; Units: K/mm3; Status: F Test: EOS #; Value: 0.3; Range: 0.0-0.50; Units: K/mm3; Status: F Test: BASO #; Value: 0.1; Range: 0.0-0.2; Units: K/mm3; Status: F Test: LARGE UNSTAINED CELL #; Value: 0.1; Range: 0.0-0.4; Units: K/mm3; Status: F Lab Order: Lipase; SPEC'M 03/17/16 15:03 Test: LIPASE; Value: 143; Range: 73-393; Units: U/L; Status: F Lab Order: Liver Profile; SPEC' 03/17/16 15:03 Test: AST/SGOT; Value: 22; Range: 15-37; Units: U/L; Status: F Test: ALT/SGPT; Value: 54; Range: 12-78; Units: U/L; Status: F Test: ALKALINE PHOSPHATASE; Value: 71; Range: 45-117; Units: U/L; Status: F Test: BILIRUBIN,TOTAL; Value: 0.2; Range: 0.2-1.0; Units: MG/DL; Status: F Test: BILIRUBIN,DIRECT; Value: < 0.1; Range: 0.0-0.2; Units: MG/DL; Status: F Test: TOTAL PROTEIN; Value: 7.3; Range: 6.4-8.2; Units: GM/DL; Status: F Test: ALBUMIN; Value: 4.2; Range: 3.2-5.2; Units: GM/DL; Status: F Test: ALBUMIN/GLOBULIN RATIO; Value: 1.35; Range: 1.00-1.93; Status: F Lab Order: CRP; SPEC' 03/17/16 15:03 Test: C REACTIVE PROTEIN QUANTITATIV; Value: < 0.30; Range: 0.00-0.30; Units: MG/DL; Status: F Radiology Order: CT ABD & PELVIS: Oral Contrast Only Test: CT ABD & PELVIS: Oral Contrast Only REASON FOR EXAMINATION: RIGHT LATERAL ABD PAIN, RECENT STONE; CT ABDOMEN AND PELVIS WITH ORAL CONTRAST ONLY, 03/17/2016:; ; Comparison made with prior CT abdomen and pelvis 02/25/2016 at which time the; patient had an obstructing 7 x 9 mm calculus within the right proximal ureter. At; this time there is moderate residual right renal caliectasis and pelviectasis; with tapering of the pelvic portion of the right ureter. There is no residual; stone within the right ureter. A small amount of periureteral stranding. There; are a few tiny nonobstructing left nephrocalculi. Mild edematous changes are seen; in the right kidney. The stomach and small bowel are within normal limits. The; terminal ileum and the appendix are normal. Abdominal aorta is of normal course; and caliber.; ; The bladder is contracted. The prostate is not enlarged. There is mild to; moderate diverticulosis within the sigmoid colon. There is no free air or; ascites.; ; IMPRESSION:; Mild to moderate residual right hydronephrosis and hydroureter persists despite; interval passage/resolution of the previously obstructing right proximal ureteral; stone.; ; Sigmoid diverticulosis.; ; ; ; Unreviewed; Outcome: 18:05 Discharge ordered by Provider. dt4 18:15 Discharge Assessment: Patient awake, alert and oriented x 3. No cognitive and/or jmk functional deficits noted. Patient verbalized understanding of disposition instructions. patient administered narcotics - no. The following High Risk Discharge criteria are identified: None. Discharged to home ambulatory. Condition: good. Discharge instructions given to patient, Instructed on discharge instructions, follow up and referral plans. medication usage, Demonstrated understanding of instructions, medications, Pt was receptive of discharge instructions/ teaching. No special radiology studies were completed. Property :Personal belongings accompany Pt. 18:17 Patient left the ED. [facility] Signatures: Dispatcher [employer] EDMS Gerald MckeonRN RN Chiquita VallecilloRN RN ck1 Juana ChildsRN RN Trini Dunn, CHERRY PITTER CHERRY PITTER Chyna Park RN RN ead Tschudi, Diane, PA-C PA-C dt4 Genevieve Polanco, CHERRY PITTER CHERRY PITTER rs6 Domi Anne Corrections: (The following items were deleted from the chart) 13:45 13:41 Presenting complaint: Patient states: right side abdominal pain radiating to ck1 right flank for one week ck1 MTDD
--- NOTE | 2016-03-17 18:18 | EDDOCDS ---
Physician Documentation [facility] Name: Manuel Duran Age: 30 yrs Sex: Male : 1985 Arrival Date: 03/17/2016 Time: 13:34 Bed I4 / M4 Private MD: Trini Yeboah K. Disposition: 03/17/16 18:05 Discharged to Home/Self Care. Impression: Lower abdominal pain, unspecified - RIGHT LATERAL ABDOMINAL PAIN, WITH RIGHT HYDROURETERONEPHROSIS S/P STENT REMOVAL. - Condition is Stable. - Discharge Instructions: Abdominal Pain, Adult, Colic, Flank Pain. - Prescriptions for [facility] 5- 325 mg Oral Tablet - take 1 tablet by ORAL route every 6 hours As needed MDD: 4 tabs; 20 tablet. Naprosyn 500 mg Oral Tablet - take 1 tablet by ORAL route every 12 hours As needed take with food; 30 tablet. - Medication Reconciliation, Local Pharmacy Hours form. - Follow up: Emergency Department; When: As needed; Reason: Worsening of conditions. Follow up: Vince Reyes; When: Call to arrange an appointment; Reason: Wound/Symptom Recheck, If symptoms return, Recheck today's complaints, Continuance of care. - Problem is new. - Symptoms are unchanged. - Notes: TAKE THE PAIN MEDICATION DIRECTED, NEEDED. CALL AND SCHEDULE AN APPOINTMENT WITH DR. REYES IF YOUR PAIN PERSISTS OVER THE NEXT 1-2 WEEKS WITH THE PAIN MEDICATION. RETURN TO THE ER WITH ANY WORSENING SYMPTOMS. Historical: - Allergies: No known drug Allergies; - Home Meds: 1. Dicyclomine Unknown Oral PRN (Last dose: 03/16/2016 20:00) - PMHx: Kidney stones; IBS; back pain; - PSHx: Lithotripsy; Colonoscopy; - Social history: Smoking status: Patient uses tobacco products, heavy tobacco smoker. No barriers to communication noted, The patient speaks fluent Vincentian, Speaks appropriately for age. - : The pt / caregiver states he / she is not on anticoagulants. Home medication list is obtained from the patient. - Exposure Risk Screening:: None identified. Vital Signs: 03/17 13:36 BP 165 / 86; Pulse 67; Resp 18; Temp 96.8(O); Pulse Ox 97% on R/A; Weight 154.22 kg / elp 340 lbs (M); Height 6 ft. 1 in. (185.42 cm); 18:15 BP 134 / 72; Pulse 70; Resp 16; Temp 98.2; jmk 13:36 Body Mass Index 44.86 (154.22 kg, 185.42 cm) elp MDM: 14:04 Urinalysis Ordered. EDMS 14:04 Urine Culture Ordered. EDMS 14:49 NS 0.9% 1000 ml IV at bolus once ordered. dt4 14:49 ketorolac 30 mg IVP once ordered. dt4 14:49 IV Saline Lock ordered. dt4 14:49 Undress patient appropriately for examination ordered. dt4 14:49 Amylase Ordered. EDMS 14:49 Basic Metabolic Profile Ordered. EDMS 14:49 CBC with Diff Ordered. EDMS 14:49 Lipase Ordered. EDMS 14:49 Liver Profile Ordered. EDMS 14:49 CRP Ordered. EDMS 14:50 CT ABD & PELVIS: Oral Contrast Only Ordered. EDMS 14:51 NOTHING BY MOUTH+DIET ordered. EDMS 15:16 Diatrizoate Meglumine & Sodium Liquid 10 ml PO once; mix in 290cc of water ordered. k 15:18 Financial registration complete. b 15:27 [facility] Payment Agreement was scanned into [employer] and attached to record. gjb 16:22 Diatrizoate Meglumine & Sodium Liquid 10 ml PO once; mix in 290cc of water ordered. jmk 18:03 HYDROcodone-acetaminophen 5 mg-325 mg 1 tabs PO once ordered. dt4 Administered Medications: 15:08 Drug: NS 0.9% 1000 ml Route: IV; Rate: bolus; Site: right antecubital; jmk 16:23 Follow up: IV Status: Completed infusion jmk 15:09 Drug: ketorolac 30 mg [ketorolac 30 mg/mL (1 mL) injection solution (1 mL)] Route: IVP; [facility] Site: right antecubital; 15:16 Drug: Diatrizoate Meglumine & Sodium 10 ml [diatrizoate meglumine and diat.sodium 66 jmk %-10 % oral solution (10 mL)] Route: PO; 15:40 Drug: Diatrizoate Meglumine & Sodium 10 ml [diatrizoate meglumine and diat.sodium 66 jmk %-10 % oral solution (10 mL)] Route: PO; Signatures: Dispatcher [employer] Gerald Robb,RN RN Chiquita VallecilloRN RN ck1 Simi Hannah PA-C PA-C dt4 Domi Anne The chart was reviewed and I authenticate all verbal orders and agree with the evaluation and treatment provided.Attachments: 15:27 [facility] Payment Agreement louie MTDD
--- NOTE | 2016-03-19 19:18 | EDDOCDS ---
Physician Documentation [facility] Name: Manuel Duran Age: 30 yrs Sex: Male : 1985 Arrival Date: 03/17/2016 Time: 13:34 Bed I4 / M4 Private MD: Trini Yeboah K. Disposition: 03/17/16 18:05 Discharged to Home/Self Care. Impression: Lower abdominal pain, unspecified - RIGHT LATERAL ABDOMINAL PAIN, WITH RIGHT HYDROURETERONEPHROSIS S/P STENT REMOVAL. - Condition is Stable. - Discharge Instructions: Abdominal Pain, Adult, Colic, Flank Pain. - Prescriptions for [facility] 5- 325 mg Oral Tablet - take 1 tablet by ORAL route every 6 hours As needed MDD: 4 tabs; 20 tablet. Naprosyn 500 mg Oral Tablet - take 1 tablet by ORAL route every 12 hours As needed take with food; 30 tablet. - Medication Reconciliation, Local Pharmacy Hours form. - Follow up: Emergency Department; When: As needed; Reason: Worsening of conditions. Follow up: Vince Reyes; When: Call to arrange an appointment; Reason: Wound/Symptom Recheck, If symptoms return, Recheck today's complaints, Continuance of care. - Problem is new. - Symptoms are unchanged. - Notes: TAKE THE PAIN MEDICATION DIRECTED, NEEDED. CALL AND SCHEDULE AN APPOINTMENT WITH DR. REYES IF YOUR PAIN PERSISTS OVER THE NEXT 1-2 WEEKS WITH THE PAIN MEDICATION. RETURN TO THE ER WITH ANY WORSENING SYMPTOMS. Historical: - Allergies: No known drug Allergies; - Home Meds: 1. Dicyclomine Unknown Oral PRN (Last dose: 03/16/2016 20:00) - PMHx: Kidney stones; IBS; back pain; - PSHx: Lithotripsy; Colonoscopy; - Social history: Smoking status: Patient uses tobacco products, heavy tobacco smoker. No barriers to communication noted, The patient speaks fluent Burkinan, Speaks appropriately for age. - : The pt / caregiver states he / she is not on anticoagulants. Home medication list is obtained from the patient. - Exposure Risk Screening:: None identified. Vital Signs: 03/17 13:36 BP 165 / 86; Pulse 67; Resp 18; Temp 96.8(O); Pulse Ox 97% on R/A; Weight 154.22 kg / elp 340 lbs (M); Height 6 ft. 1 in. (185.42 cm); 18:15 BP 134 / 72; Pulse 70; Resp 16; Temp 98.2; jmk 13:36 Body Mass Index 44.86 (154.22 kg, 185.42 cm) elp MDM: 14:04 Urinalysis Ordered. EDMS 14:04 Urine Culture Ordered. EDMS 14:49 NS 0.9% 1000 ml IV at bolus once ordered. dt4 14:49 ketorolac 30 mg IVP once ordered. dt4 14:49 IV Saline Lock ordered. dt4 14:49 Undress patient appropriately for examination ordered. dt4 14:49 Amylase Ordered. EDMS 14:49 Basic Metabolic Profile Ordered. EDMS 14:49 CBC with Diff Ordered. EDMS 14:49 Lipase Ordered. EDMS 14:49 Liver Profile Ordered. EDMS 14:49 CRP Ordered. EDMS 14:50 CT ABD & PELVIS: Oral Contrast Only Ordered. EDMS 14:51 NOTHING BY MOUTH+DIET ordered. EDMS 15:16 Diatrizoate Meglumine & Sodium Liquid 10 ml PO once; mix in 290cc of water ordered. jmk 15:18 Financial registration complete. gjb 15:27 [facility] Payment Agreement was scanned into [employer] and attached to record. gjb 16:22 Diatrizoate Meglumine & Sodium Liquid 10 ml PO once; mix in 290cc of water ordered. jmk 18:03 HYDROcodone-acetaminophen 5 mg-325 mg 1 tabs PO once ordered. dt4 03/18 09:19 T-Sheet-- Draft Copy was scanned into [employer] and attached to record. gb 09:20 Radiology Report was scanned into [employer] and attached to record. gb Administered Medications: 03/17 15:08 Drug: NS 0.9% 1000 ml Route: IV; Rate: bolus; Site: right antecubital; jmk 16:23 Follow up: IV Status: Completed infusion jmk 15:09 Drug: ketorolac 30 mg [ketorolac 30 mg/mL (1 mL) injection solution (1 mL)] Route: IVP; k Site: right antecubital; 15:16 Drug: Diatrizoate Meglumine & Sodium 10 ml [diatrizoate meglumine and diat.sodium 66 jmk %-10 % oral solution (10 mL)] Route: PO; 15:40 Drug: Diatrizoate Meglumine & Sodium 10 ml [diatrizoate meglumine and diat.sodium 66 jmk %-10 % oral solution (10 mL)] Route: PO; Signatures: Dispatcher [employer] EDGerald Martinez,RN RN Yael Ko, Reg Reg gb Chiquita SaxenaRN RN ck1 Simi Hannah PA-C PA-C dt4 Domi Anne The chart was reviewed and I authenticate all verbal orders and agree with the evaluation and treatment provided.Attachments: 15:27 [facility] Payment Agreement gjb 03/18 09:19 T-Sheet-- Draft Copy Chart Complete MTDD
--- NOTE | 2016-03-19 19:18 | EDDOCDS ---
Nurse's Notes [facility] Name: Manuel Duran Age: 30 yrs Sex: Male : 1985 Arrival Date: 03/17/2016 Time: 13:34 Bed I4 / M4 Private MD: Trini Yeboah K. Diagnosis: Lower abdominal pain, unspecified-RIGHT LATERAL ABDOMINAL PAIN, WITH RIGHT HYDROURETERONEPHROSIS S/P STENT REMOVAL Presentation: 03/17 13:41 Presenting complaint: Patient states: right side abdominal pain radiating to right ck1 flank for one week. C/O right ear "plugged". Risk factors: the patient reports not having a history of previous torsion. Adult Sepsis Screening: The patient does not have new or worsening altered mentation. Patient's respiratory rate is less than 22. Systolic blood pressure is greater than 100. Patient has a qSOFA score of 0- Negative Sepsis Screen. Suicide/Homicide risk assessment- the patient denies having any suicidal and/or homicidal ideations and does not present with any other emotional, behavioral or mental health complaints. Status: Patient is not a business services intern or dependent. Transition of care: patient was not received from another setting of care. 13:41 Acuity: CAM Level 3 ck1 13:41 Method Of Arrival: Walkin/Carried/Asstd ck1 Triage Assessment: 13:44 General: Appears in no apparent distress, comfortable, Behavior is appropriate for age, ck1 cooperative. Pain: Location: right upper quadrant and right lower quadrant Pain currently is 2 out of 10 on a pain scale. HIV screening NA for this visit Offered previously. Neurological: Level of Consciousness is awake, alert, obeys commands, Oriented to person, place, time. Respiratory: Respiratory effort is unlabored, Respiratory pattern is regular, symmetrical. GI: Denies nausea, vomiting. : Denies burning with urination, urinary frequency. Derm: Skin is intact, is healthy with good turgor, Skin is pink, warm & dry. Historical: - Allergies: No known drug Allergies; - Home Meds: 1. Dicyclomine Unknown Oral PRN (Last dose: 03/16/2016 20:00) - PMHx: Kidney stones; IBS; back pain; - PSHx: Lithotripsy; Colonoscopy; - Social history: Smoking status: Patient uses tobacco products, heavy tobacco smoker. No barriers to communication noted, The patient speaks fluent Chilean, Speaks appropriately for age. - : The pt / caregiver states he / she is not on anticoagulants. Home medication list is obtained from the patient. - Exposure Risk Screening:: None identified. Screenin:15 Screening information is obtained from the patient. Fall risk: No risks identified. jmk Assistance ADL's: requires no assistance with activities of daily living. Abuse/DV Screen: The patient / caregiver reports he/she is: not in a situation that causes fear, pain or injury. Nutritional screening: No deficits noted. Advance Directives: Currently, there is no health care proxy. There is no active DNR order. There is no living will. There is no Power of Supervisor [place] Splitting. Advance directive information has not previously been placed in an [facility] medical record. home support is adequate. Assessment: 15:17 General: Appears in no apparent distress. Cardiovascular: No deficits noted. jmk Respiratory: Onset: The symptoms/episode began/occurred No deficits noted. GI: Abdomen is non- distended obese, Bowel sounds present X 4 quads. Abd is soft X 4 quads Abd is tender to palpation in right upper quadrant and right lower quadrant. 16:49 General: Appears reports 2/10 discomfort , yet readily bends over to put shoes on, and jmk ambulates with brisk upright gait.. Vital Signs: 13:36 BP 165 / 86; Pulse 67; Resp 18; Temp 96.8(O); Pulse Ox 97% on R/A; Weight 154.22 kg elp (M); Height 6 ft. 1 in. (185.42 cm); 18:15 BP 134 / 72; Pulse 70; Resp 16; Temp 98.2; jmk 13:36 Body Mass Index 44.86 (154.22 kg, 185.42 cm) [facility] Vitals: 13:36 Log In Time: March 17, 2016 at 13:34. [facility] ED Course: 13:36 Patient visited by Trini Burks PCA. elp 13:36 Trini Yeboah is Private Physician. elp 13:36 Patient moved to Waiting elp 13:37 Patient visited by Trini Burks PCA. elp 13:37 Patient moved to Pre RCE elp 13:42 Triage Initiated ck1 13:45 Patient moved to Triage 2 ck1 13:46 Patient moved to Pre RCE ck1 13:46 Patient moved to Triage 2 ck1 13:46 Patient moved to Pre RCE ck1 14:04 Patient moved to Triage 1 rs6 14:10 Urinalysis Sent. rs6 14:10 Urine Culture Sent. rs6 14:14 [facility] dt4 14:14 Henry Lorenzo MD is Attending Physician. dt4 14:14 Patient visited by Simi Hannah PA-C. dt4 14:40 Patient moved to I4 / M4 [facility] 15:04 Patient visited by Chyna Retana,JIMENEZ. ead 15:04 Inserted peripheral IV: 20gauge IV in right antecubital area and blood collected. ead Patient tolerated the procedure well. 15:04 CRP Sent. ead 15:04 Basic Metabolic Profile Sent. ead 15:04 Amylase Sent. ead 15:04 Liver Profile Sent. ead 15:04 Lipase Sent. ead 15:04 CBC with Diff Sent. ead 15:17 Patient visited by Gerald Mckeon,JIMENEZ. jmk 15:27 [facility] Payment Agreement was scanned into [employer] and attached to record. gjb 15:35 Patient name changed from Manuel\\S\\Emmanuel\\S\\Renee\\S\\ to Manuel\\S\\B\\S\\Renee. EDMS 16:51 Patient visited by Gerald Mckeon,JIMENEZ. jmk 17:46 CT ABD & PELVIS: Oral Contrast Only Returned. EDMS 18:01 Patient visited by Simi Hannah PA-C. dt4 18:03 Vince Fam is Referral Physician. dt4 18:15 The patient / caregiver is instructed regarding the plan of care and ED course. jmk 18:15 Discontinued lock intact, bleeding controlled, pressure dressing applied, No jmk redness/swelling at site. No procedures done that require assistance. 03/18 09:19 T-Sheet-- Draft Copy was scanned into [employer] and attached to record. gb 09:20 Radiology Report was scanned into [employer] and attached to record. gb Administered Medications: 03/17 15:08 Drug: NS 0.9% 1000 ml Route: IV; Rate: bolus; Site: right antecubital; nahunk 16:23 Follow up: IV Status: Completed infusion [facility] 15:09 Drug: ketorolac 30 mg [ketorolac 30 mg/mL (1 mL) injection solution (1 mL)] Route: IVP; [facility] Site: right antecubital; 15:16 Drug: Diatrizoate Meglumine & Sodium 10 ml [diatrizoate meglumine and diat.sodium 66 jmk %-10 % oral solution (10 mL)] Route: PO; 15:40 Drug: Diatrizoate Meglumine & Sodium 10 ml [diatrizoate meglumine and diat.sodium 66 jmk %-10 % oral solution (10 mL)] Route: PO; Order Results: Lab Order: Urinalysis; SPEC'M 03/17/16 14:08 Test: APPEARANCE, URINE; Value: CLOUDY; Range: CLEAR; Abnormal: Above high normal; Status: F Test: COLOR, URINE; Value: YELLOW; Range: YELLOW; Status: F Test: PH,URINE; Value: 5.0; Range: 5.0-9.0; Units: UNITS; Status: F Test: SPECIFIC GRAVITY URINE AUTO; Value: 1.016; Range: 1.002-1.035; Status: F Test: PROTEIN, URINE AUTO; Value: 1+; Range: NEGATIVE; Abnormal: Above high normal; Units: mg/dL; Status: F Test: GLUCOSE, URINE (UA) AUTO; Value: NEGATIVE; Range: NEGATIVE; Units: mg/dL; Status: F Test: KETONE, URINE AUTO; Value: NEGATIVE; Range: NEGATIVE; Units: mg/dL; Status: F Test: UROBILINOGEN, URINE AUTO; Value: 0.2; Range: 0.0-2.0; Units: mg/dL; Status: F Test: BILIRUBIN, URINE AUTO; Value: NEGATIVE; Range: NEGATIVE; Status: F Test: NITRITE, URINE AUTO; Value: NEGATIVE; Range: NEGATIVE; Status: F Test: LEUKOCYTE ESTERASE, URINE AUTO; Value: TRACE; Range: NEGATIVE; Abnormal: Above high normal; Status: F Test: BLOOD, URINE BLOOD; Value: 3+; Range: NEGATIVE; Abnormal: Above high normal; Status: F Test: WBC, URINE AUTO; Value: 22; Range: 0-3; Abnormal: Above high normal; Units: /HPF; Status: F Test: RBC, URINE AUTO; Value: TNTC; Range: 0-3; Abnormal: Above high normal; Units: /HPF; Status: F Test: BACTERIA, URINE AUTO; Value: NEGATIVE; Range: NEGATIVE; Status: F Test: SQUAMOUS EPITHELIAL CELL UR AU; Value: 0; Range: 0-6; Units: /HPF; Status: F Test: MUCUS, URINE; Value: SMALL; Range: NEGATIVE; Status: F Test: HYALINE CAST, URINE AUTO; Value: 0; Range: 0-1; Units: /LPF; Status: F Lab Order: Urine Culture; [facility] 03/17/16 14:08 Test: URINE CULTURE; Value: URINE CULTURE RESULT NO GROWTH; Status: F Lab Order: Amylase; [facility] 03/17/16 15:03 Test: AMYLASE; Value: 39; Range: 25-115; Units: U/L; Status: F Lab Order: Basic Metabolic Profile; [facility] 03/17/16 15:03 Test: GLUCOSE, FASTING; Value: 93; Range: 70-105; Units: MG/DL; Status: F Test: BLOOD UREA NITROGEN; Value: 20; Range: 7-18; Abnormal: Above high normal; Units: MG/DL; Status: F Test: CREATININE FOR GFR; Value: 1.13; Range: 0.70-1.30; Units: MG/DL; Status: F Test: GLOMERULAR FILTRATION RATE; Value: > 60.0; Range: >60; Status: F Test: SODIUM LEVEL; Value: 142; Range: 136-145; Units: MEQ/L; Status: F Test: POTASSIUM SERUM; Value: 4.4; Range: 3.5-5.1; Units: MEQ/L; Status: F Test: CHLORIDE LEVEL; Value: 109; Range: 98-107; Abnormal: Above high normal; Units: MEQ/L; Status: F Test: CARBON DIOXIDE LEVEL; Value: 24; Range: 21-32; Units: MEQ/L; Status: F Test: ANION GAP; Value: 9; Range: 8-16; Units: MEQ/L; Status: F Test: CALCIUM LEVEL; Value: 9.1; Range: 8.5-10.1; Units: MG/DL; Status: F Test Note: ; Units are mL/min/1.73 m2 Chronic Kidney Disease Staging per NKF: Stage I & II GFR >=60 Normal to Mildly Decreased Stage III GFR 30-59 Moderately Decreased Stage IV GFR 15-29 Severely Decreased Stage V GFR <15 Very Little GFR Left ESRD GFR <15 on D[employer]PER Lab Order: CBC with Diff; SPEC'M 03/17/16 15:03 Test: WHITE BLOOD COUNT; Value: 6.2; Range: 4.0-10.0; Units: K/mm3; Status: F Test: RED BLOOD COUNT; Value: 5.03; Range: 4.30-6.10; Units: M/mm3; Status: F Test: HEMOGLOBIN; Value: 15.5; Range: 14.0-18.0; Units: g/dl; Status: F Test: HEMATOCRIT; Value: 43.6; Range: 42.0-52.0; Units: %; Status: F Test: MEAN CORPUSCULAR VOLUME; Value: 86.6; Range: 80.0-96.0; Units: fl; Status: F Test: MEAN CORPUSCULAR HEMOGLOBIN; Value: 30.7; Range: 27.0-33.0; Units: pg; Status: F Test: MEAN CORPUSCULAR HGB CONC; Value: 35.5; Range: 32.0-36.5; Units: g/dl; Status: F Test: RED CELL DISTRIBUTION WIDTH; Value: 12.9; Range: 11.5-14.5; Units: %; Status: F Test: PLATELET COUNT, AUTOMATED; Value: 246; Range: 150-450; Units: k/mm3; Status: F Test: NEUTROPHILS %; Value: 56.6; Range: 36.0-66.0; Units: %; Status: F Test: LYMPH %; Value: 31.2; Range: 24.0-44.0; Units: %; Status: F Test: MONO %; Value: 5.2; Range: 0.0-5.0; Abnormal: Above high normal; Units: %; Status: F Test: EOS %; Value: 4.2; Range: 0.0-3.0; Abnormal: Above high normal; Units: %; Status: F Test: BASO %; Value: 1.4; Range: 0.0-1.0; Abnormal: Above high normal; Units: %; Status: F Test: LARGE UNSTAINED CELL %; Value: 1.4; Range: 0.0-4.0; Units: %; Status: F Test: NEUTROPHILS #; Value: 3.5; Range: 1.8-7.7; Units: K/mm3; Status: F Test: LYMPH #; Value: 2.0; Range: 1.5-6.5; Units: K/mm3; Status: F Test: MONO #; Value: 0.3; Range: 0.0-0.8; Units: K/mm3; Status: F Test: EOS #; Value: 0.3; Range: 0.0-0.50; Units: K/mm3; Status: F Test: BASO #; Value: 0.1; Range: 0.0-0.2; Units: K/mm3; Status: F Test: LARGE UNSTAINED CELL #; Value: 0.1; Range: 0.0-0.4; Units: K/mm3; Status: F Lab Order: Lipase; [facility] 03/17/16 15:03 Test: LIPASE; Value: 143; Range: 73-393; Units: U/L; Status: F Lab Order: Liver Profile; [facility] 03/17/16 15:03 Test: AST/SGOT; Value: 22; Range: 15-37; Units: U/L; Status: F Test: ALT/SGPT; Value: 54; Range: 12-78; Units: U/L; Status: F Test: ALKALINE PHOSPHATASE; Value: 71; Range: 45-117; Units: U/L; Status: F Test: BILIRUBIN,TOTAL; Value: 0.2; Range: 0.2-1.0; Units: MG/DL; Status: F Test: BILIRUBIN,DIRECT; Value: < 0.1; Range: 0.0-0.2; Units: MG/DL; Status: F Test: TOTAL PROTEIN; Value: 7.3; Range: 6.4-8.2; Units: GM/DL; Status: F Test: ALBUMIN; Value: 4.2; Range: 3.2-5.2; Units: GM/DL; Status: F Test: ALBUMIN/GLOBULIN RATIO; Value: 1.35; Range: 1.00-1.93; Status: F Lab Order: CRP; SPEC' 03/17/16 15:03 Test: C REACTIVE PROTEIN QUANTITATIV; Value: < 0.30; Range: 0.00-0.30; Units: MG/DL; Status: F Radiology Order: CT ABD & PELVIS: Oral Contrast Only Test: CT ABD & PELVIS: Oral Contrast Only REASON FOR EXAMINATION: RIGHT LATERAL ABD PAIN, RECENT STONE; CT ABDOMEN AND PELVIS WITH ORAL CONTRAST ONLY, 03/17/2016:; ; Comparison made with prior CT abdomen and pelvis 02/25/2016 at which time the; patient had an obstructing 7 x 9 mm calculus within the right proximal ureter.; At; this time there is mild to moderate residual right renal caliectasis and; pelviectasis; with tapering of the pelvic portion of the right ureter. There is no residual; stone within the right ureter. A small amount of periureteral stranding. There; are a few tiny nonobstructing left nephrocalculi. Mild edematous changes are; seen; in the right kidney. The stomach and small bowel are within normal limits. The; terminal ileum and the appendix are normal. Abdominal aorta is of normal course; and caliber.; ; The bladder is contracted. The prostate is not enlarged. There is mild to; moderate diverticulosis within the sigmoid colon. There is no free air or; ascites.; ; IMPRESSION:; Mild to moderate residual right hydronephrosis and hydroureter persists despite; interval passage/resolution of the previously obstructing right proximal; ureteral; stone.; ; Sigmoid diverticulosis.; ; ; MTDD Outcome: 18:05 Discharge ordered by Provider. dt4 18:15 Discharge Assessment: Patient awake, alert and oriented x 3. No cognitive and/or k functional deficits noted. Patient verbalized understanding of disposition instructions. patient administered narcotics - no. The following High Risk Discharge criteria are identified: None. Discharged to home ambulatory. Condition: good. Discharge instructions given to patient, Instructed on discharge instructions, follow up and referral plans. medication usage, Demonstrated understanding of instructions, medications, Pt was receptive of discharge instructions/ teaching. No special radiology studies were completed. Property :Personal belongings accompany Pt. 18:17 Patient left the ED. fabiana Signatures: Dispatcher [facility] Gerald Robb RN RN jmk Barnhardt, Gloria, Lux Reg Chiquita Cole RN RN ck1 Juana Childs,RN RN cjh Trini Burks, PARALEGAL SECRETARY PARALEGAL SECRETARY elp Chyna Retana,RN RN bruced Simi Hannah, ANNABELLA [place] dt4 Genevieve Polanco, PARALEGAL SECRETARY PARALEGAL SECRETARY rs6 Domi Anne Corrections: (The following items were deleted from the chart) 13:45 13:41 Presenting complaint: Patient states: right side abdominal pain radiating to ck1 right flank for one week ck1 Chart Complete MTDD
--- NOTE | 2016-03-19 19:18 | EDDOCDS ---
Physician Documentation [facility] Name: Manuel Duran Age: 30 yrs Sex: Male : 1985 Arrival Date: 03/17/2016 Time: 13:34 Bed I4 / M4 Private MD: Trini Yeboah K. Disposition: 03/17/16 18:05 Discharged to Home/Self Care. Impression: Lower abdominal pain, unspecified - RIGHT LATERAL ABDOMINAL PAIN, WITH RIGHT HYDROURETERONEPHROSIS S/P STENT REMOVAL. - Condition is Stable. - Discharge Instructions: Abdominal Pain, Adult, Colic, Flank Pain. - Prescriptions for Rillito 5- 325 mg Oral Tablet - take 1 tablet by ORAL route every 6 hours As needed MDD: 4 tabs; 20 tablet. Naprosyn 500 mg Oral Tablet - take 1 tablet by ORAL route every 12 hours As needed take with food; 30 tablet. - Medication Reconciliation, Local Pharmacy Hours form. - Follow up: Emergency Department; When: As needed; Reason: Worsening of conditions. Follow up: Vince Reyes; When: Call to arrange an appointment; Reason: Wound/Symptom Recheck, If symptoms return, Recheck today's complaints, Continuance of care. - Problem is new. - Symptoms are unchanged. - Notes: TAKE THE PAIN MEDICATION DIRECTED, NEEDED. CALL AND SCHEDULE AN APPOINTMENT WITH DR. REYES IF YOUR PAIN PERSISTS OVER THE NEXT 1-2 WEEKS WITH THE PAIN MEDICATION. RETURN TO THE ER WITH ANY WORSENING SYMPTOMS. Historical: - Allergies: No known drug Allergies; - Home Meds: 1. Dicyclomine Unknown Oral PRN (Last dose: 03/16/2016 20:00) - PMHx: Kidney stones; IBS; back pain; - PSHx: Lithotripsy; Colonoscopy; - Social history: Smoking status: Patient uses tobacco products, heavy tobacco smoker. No barriers to communication noted, The patient speaks fluent Cambodian, Speaks appropriately for age. - : The pt / caregiver states he / she is not on anticoagulants. Home medication list is obtained from the patient. - Exposure Risk Screening:: None identified. Vital Signs: 03/17 13:36 BP 165 / 86; Pulse 67; Resp 18; Temp 96.8(O); Pulse Ox 97% on R/A; Weight 154.22 kg / elp 340 lbs (M); Height 6 ft. 1 in. (185.42 cm); 18:15 BP 134 / 72; Pulse 70; Resp 16; Temp 98.2; jmk 13:36 Body Mass Index 44.86 (154.22 kg, 185.42 cm) elp MDM: 14:04 Urinalysis Ordered. EDMS 14:04 Urine Culture Ordered. EDMS 14:49 NS 0.9% 1000 ml IV at bolus once ordered. dt4 14:49 ketorolac 30 mg IVP once ordered. dt4 14:49 IV Saline Lock ordered. dt4 14:49 Undress patient appropriately for examination ordered. dt4 14:49 Amylase Ordered. EDMS 14:49 Basic Metabolic Profile Ordered. EDMS 14:49 CBC with Diff Ordered. EDMS 14:49 Lipase Ordered. EDMS 14:49 Liver Profile Ordered. EDMS 14:49 CRP Ordered. EDMS 14:50 CT ABD & PELVIS: Oral Contrast Only Ordered. EDMS 14:51 NOTHING BY MOUTH+DIET ordered. EDMS 15:16 Diatrizoate Meglumine & Sodium Liquid 10 ml PO once; mix in 290cc of water ordered. jmk 15:18 Financial registration complete. gjb 15:27 [facility] Payment Agreement was scanned into [employer] and attached to record. gjb 16:22 Diatrizoate Meglumine & Sodium Liquid 10 ml PO once; mix in 290cc of water ordered. jmk 18:03 HYDROcodone-acetaminophen 5 mg-325 mg 1 tabs PO once ordered. dt4 03/18 09:19 T-Sheet-- Draft Copy was scanned into [employer] and attached to record. gb 09:20 Radiology Report was scanned into [employer] and attached to record. gb Administered Medications: 03/17 15:08 Drug: NS 0.9% 1000 ml Route: IV; Rate: bolus; Site: right antecubital; jmk 16:23 Follow up: IV Status: Completed infusion jmk 15:09 Drug: ketorolac 30 mg [ketorolac 30 mg/mL (1 mL) injection solution (1 mL)] Route: IVP; k Site: right antecubital; 15:16 Drug: Diatrizoate Meglumine & Sodium 10 ml [diatrizoate meglumine and diat.sodium 66 jmk %-10 % oral solution (10 mL)] Route: PO; 15:40 Drug: Diatrizoate Meglumine & Sodium 10 ml [diatrizoate meglumine and diat.sodium 66 jmk %-10 % oral solution (10 mL)] Route: PO; Signatures: Dispatcher [employer] EDGerald Martinez,RN RN Yael Ko, Reg Reg gb Chiquita SaxenaRN RN ck1 Simi Hannah PA-C PA-C dt4 Domi Anne The chart was reviewed and I authenticate all verbal orders and agree with the evaluation and treatment provided.Attachments: 15:27 [facility] Payment Agreement gjb 03/18 09:19 T-Sheet-- Draft Copy Chart Complete MTDD
== END 2016-03-17 18:17 | disposition home or self-care (01) ==
LOC: M ED 13:34
DX: N13.1 Hydronephrosis with ureteral stricture, not elsewhere classified (principal); R10.9 Unspecified abdominal pain; K58.9 Irritable bowel syndrome, unspecified; M54.9 Dorsalgia, unspecified; Z79.899 Other long term (current) drug therapy; F17.200 Nicotine dependence, unspecified, uncomplicated; Z87.442 Personal history of urinary calculi
CPT/HCPCS: 36415; 74176; 80048; 80076; 81001; 82150; 83690; 85025; 86140; 87086; 96361; 96374; 99284; J1885; Q9963

== ENCOUNTER 2016-11-08 10:40 | Emergency (ER) | payer OTHER ==
[~2016-11-08] VITALS: Ht 185.4 cm; Wt 145.4 kg
[~2016-11-08 10:40] MED LIST changes: -IBUP200C PO; +IBUP200C10 PO; +PERC5TAB12 PO; -PERC5TAB6 PO
--- NOTE | 2016-11-08 12:29 | ED PDOC ---
Post-Departure Follow-Up no foreign body at time of exam, pt had no further complaints Alice Werner Nov 08, 2016 12:29
[2016-11-08 12:31] VITALS: BP 144/86
== END 2016-11-08 12:36 | disposition home or self-care (01) ==
LOC: M ED 10:40
DX: S00.451A Superficial foreign body of right ear, initial encounter (principal); X58.XXXA Exposure to other specified factors, initial encounter; Y92.89 Other specified places as the place of occurrence of the external cause; Y93.89 Activity, other specified; Y99.8 Other external cause status

== ENCOUNTER 2016-11-19 23:54 | Emergency (ER) | payer OTHER ==
[~2016-11-19] VITALS: Ht 185.4 cm; Wt 145.4 kg
[2016-11-20] MEDS ORDERED: KETOROLAC 30 MG/ML VIAL (J1885) IV ONE (00:30)
[2016-11-20] MEDS ORDERED: MORPHINE 4 MG/ML 1ML SYRINGE IV ONE (00:30)
[2016-11-20] MEDS ORDERED: ONDANSETRON 4MG/2ML VIAL (J2405) IV ONE (00:30)
[2016-11-20 00:56] LABS: BASO % 0.4 % (0.0-1.0); EOS # 0.2 K/mm3 (0.0-0.50); EOS % 3.1 % (0.0-3.0); LARGE UNSTAINED CELL # 0.2 K/mm3 (0.0-0.4); LARGE UNSTAINED CELL % 2.5 % (0.0-4.0); LYMPH # 2.6 K/mm3 (1.5-4.5); MEAN CORPUSCULAR HEMOGLOBIN 32.4 pg (27.0-33.0); MEAN CORPUSCULAR VOLUME 86.4 fl (80.0-96.0); MONO # 0.4 K/mm3 (0.0-0.8); MONO % 5.2 % (0.0-5.0); NEUTROPHILS # 3.9 K/mm3 (1.8-7.7); NEUTROPHILS % 53.7 % (36.0-66.0); PLATELET COUNT, AUTOMATED 234 k/mm3 (150-450); RED CELL DISTRIBUTION WIDTH 11.9 % (11.5-14.5); WHITE BLOOD COUNT 7.3 K/mm3 (4.0-10.0)
[2016-11-20 00:59] LABS: MEAN CORPUSCULAR HGB CONC 33.5 g/dl (32.0-36.5)
[2016-11-20] MEDS ORDERED: HYDROmorphone HCL 1 MG/ML SYRINGE (J1170) IV ONE (01:00)
[2016-11-20 01:06] LABS: ANION GAP 5 MEQ/L (8-16); BLOOD UREA NITROGEN 27 MG/DL (7-18); CARBON DIOXIDE LEVEL 27 MEQ/L (21-32); CHLORIDE LEVEL 107 MEQ/L (98-107); CREATININE FOR GFR 1.18 MG/DL (0.70-1.30); GLOMERULAR FILTRATION RATE > 60.0 (>60); GLUCOSE, FASTING 112 MG/DL (70-105); POTASSIUM SERUM 4.1 MEQ/L (3.5-5.1); SODIUM LEVEL 139 MEQ/L (136-145)
--- NOTE | 2016-11-20 01:30 | REPUSA ---
CLINICAL HISTORY: Abdominal pain. TECHNIQUE: Multiple axial, sagittal and coronal CT images were obtained through the abdomen and pelvi s without administration of oral or IV contrast material. COMMENTS: Comparison to the prior exam on 03/17/2016. Bilateral nonobstructing renal stones ranging in size between 2 and 4 mm. 6.2 mm obstructing stone of the distal third of the right ureter. Mild right hydroureteronephrosis. Hepatomegaly with fatty liver infiltration. There is no intra or extrahepatic biliary ductal dilatation. The spleen is normal. The gallbladder is within normal limits. The pancreas is of normal contour and attenuation characteristics. There is no evidence of adrenal mass. There is no evidence for appendicitis. There is no bowel wall thickening. No evidence for small or la rge bowel obstruction. There is no evidence of abdominal ascites or lymphadenopathy. There is no evidence of intrinsic or extrinsic bladder mass. There is no pelvic ascites or lymphadeno kitty. Images of the lung bases show no evidence of pleural or parenchymal mass. There are no pleural effusi ons. The bony structures are free of lytic or blastic lesions. Multilevel degenerative changes are seen in volving the thoracolumbar spine. Scattered calcifications are seen involving the aorta and major branches compatible with atherosclero sis. Mild prostatic calcifications. IMPRESSION: Obstructing stone of the right ureter. Bilateral nephrolithiasis. Thank you for your kind referral of this patient.
[2016-11-20] MEDS ORDERED: HYDROmorphone 2 MG TAB PO ONE (02:30)
[2016-11-20] MEDS ORDERED: CIPR-249 PO (03:56)
[2016-11-20] MEDS ORDERED: PERC5TAB12 PO (03:56)
[2016-11-20] MEDS ORDERED: FLOM5CAP PO (03:56)
[2016-11-20] MEDS ORDERED: OXYCODONE/APAP 5MG/325MG(BULK FOR ED) 1 TABLET PO ONE (04:00)
[2016-11-20 04:18] VITALS: BP 114/53
== END 2016-11-20 04:20 | disposition home or self-care (01) ==
LOC: M ED 23:54
DX: N20.1 Calculus of ureter (principal); K58.9 Irritable bowel syndrome, unspecified; F41.9 Anxiety disorder, unspecified; F33.9 Major depressive disorder, recurrent, unspecified; F17.210 Nicotine dependence, cigarettes, uncomplicated; Z87.442 Personal history of urinary calculi; Z98.890 Other specified postprocedural states
CPT/HCPCS: 74176; 80048; 81001; 85025; 86140; 87086; 96374; 96375; 99283; J1170; J1885; J2405

== ENCOUNTER 2016-11-22 03:43 | Emergency (ER) | payer OTHER ==
[~2016-11-22] VITALS: Ht 185.4 cm; Wt 148.2 kg
[~2016-11-22 03:43] MED LIST changes: +CIPR-249 PO
== END 2016-11-22 05:21 | disposition left against medical advice (07) ==
LOC: M ED 03:43
DX: R10.9 Unspecified abdominal pain (principal); Z53.21 Procedure and treatment not carried out due to patient leaving prior to being seen by health care provider

== ENCOUNTER 2016-11-25 16:39 | Emergency (ER) | payer OTHER ==
[~2016-11-25] VITALS: Ht 185.4 cm; Wt 145.4 kg
[2016-11-25] MEDS ORDERED: TAMSULOSIN (16:47)
[2016-11-25] MEDS ORDERED: KETOROLAC 30 MG/ML VIAL (J1885) IV ONE (18:45)
[2016-11-25] MEDS ORDERED: NS 1,000 ML IV ONE (18:45)
[2016-11-25] MEDS ORDERED: ONDANSETRON 4MG/2ML VIAL (J2405) IV ONE (18:45)
[2016-11-25] MEDS ORDERED: MORPHINE 4 MG/ML 1ML SYRINGE IV PRN (18:45)
[2016-11-25 19:19] LABS: BASO % 0.4 % (0.0-1.0); EOS # 0.2 10^3/uL (0.0-0.50); EOS % 2.4 % (0.0-3.0); IMMATURE GRANULOCYTE % 0.3 % (0-0); LYMPH # 1.9 10^3/uL (1.5-4.5); LYMPH % 27.2 % (24.0-44.0); MEAN CORPUSCULAR HGB CONC 36.4 g/dl (32.0-36.5); MEAN CORPUSCULAR VOLUME 85.3 fl (80.0-96.0); MONO # 0.6 10^3/uL (0.0-0.8); MONO % 8.2 % (0.0-5.0); NEUTROPHILS # 4.3 10^3/uL (1.8-7.7); NEUTROPHILS % 61.5 % (36.0-66.0); PLATELET COUNT, AUTOMATED 238 10^3/uL (150-450); RED CELL DISTRIBUTION WIDTH 11.8 % (11.5-14.5)
[2016-11-25 19:33] LABS: ALBUMIN/GLOBULIN RATIO 1.21 (1.00-1.93); BILIRUBIN,DIRECT 0.1 MG/DL (0.0-0.2); BILIRUBIN,TOTAL 0.3 MG/DL (0.2-1.0); CALCIUM LEVEL 9.4 MG/DL (8.5-10.1); CREATININE FOR GFR 1.6 MG/DL (0.70-1.30); GLOMERULAR FILTRATION RATE 54.3 (>60); POTASSIUM SERUM 4.6 MEQ/L (3.5-5.1); TOTAL PROTEIN 7.3 GM/DL (6.4-8.2)
[2016-11-25] MEDS ORDERED: PERC5TAB12 PO (19:52)
[2016-11-25] MEDS ORDERED: ZOFR4TAB3 PO (19:53)
[2016-11-25] MEDS ORDERED: MORPHINE 4 MG/ML 1ML SYRINGE IV ONE (20:00)
[2016-11-25 20:44] VITALS: BP 148/97
== END 2016-11-25 20:46 | disposition home or self-care (01) ==
LOC: M ED 16:39
DX: N20.1 Calculus of ureter (principal); K58.9 Irritable bowel syndrome, unspecified; Z79.2 Long term (current) use of antibiotics; Z79.899 Other long term (current) drug therapy; Z87.442 Personal history of urinary calculi; Z98.890 Other specified postprocedural states
CPT/HCPCS: 80048; 80076; 81001; 83690; 85025; 96374; 96375; 96376; 99283; J1885; J2405

== ENCOUNTER 2016-11-26 22:28 | Day surgery (SDC) | payer OTHER ==
[~2016-11-26] VITALS: Ht 185.4 cm; Wt 152.3 kg
[~2016-11-26 22:28] MED LIST changes: +TAMSULOSIN; +ZOFR4TAB3 PO
[2016-11-27] MEDS ORDERED: MORPHINE 4 MG/ML 1ML SYRINGE IV ONE (00:30)
[2016-11-27] MEDS ORDERED: ONDANSETRON 4MG/2ML VIAL (J2405) IV ONE (00:30)
[2016-11-27 00:34] LABS: BASO % 0.5 % (0.0-1.0); EOS # 0.2 10^3/uL (0.0-0.50); EOS % 3.2 % (0.0-3.0); IMMATURE GRANULOCYTE % 0.2 % (0-0); LYMPH % 32.1 % (24.0-44.0); MEAN CORPUSCULAR HEMOGLOBIN 31.2 pg (27.0-33.0); MEAN CORPUSCULAR VOLUME 86.7 fl (80.0-96.0); MONO # 0.6 10^3/uL (0.0-0.8); MONO % 9.3 % (0.0-5.0); NEUTROPHILS # 3.4 10^3/uL (1.8-7.7); NEUTROPHILS % 54.7 % (36.0-66.0); PLATELET COUNT, AUTOMATED 212 10^3/uL (150-450); RED CELL DISTRIBUTION WIDTH 11.9 % (11.5-14.5); WHITE BLOOD COUNT 6.2 10^3/uL (4.0-10.0)
[2016-11-27 00:56] LABS: CALCIUM LEVEL 8.6 MG/DL (8.5-10.1); CREATININE FOR GFR 1.84 MG/DL (0.70-1.30); GLOMERULAR FILTRATION RATE 46.2 (>60); POTASSIUM SERUM 4.8 MEQ/L (3.5-5.1)
--- NOTE | 2016-11-27 01:10 | REPUSA ---
CLINICAL HISTORY: Abdominal pain. TECHNIQUE: Multiple axial, sagittal and coronal CT images were obtained through the abdomen and pelvi s without administration of oral or IV contrast material. COMMENTS: Comparison to the prior exam on 09/19/2015. The liver remains mildly enlarged decreased attenuation without mass or defect. There is no intra or extrahepatic biliary ductal dilatation. The spleen is normal. The gallbladder is within normal limits . The pancreas is of normal contour and attenuation characteristics. There is no evidence of adrenal mass. Unchanged bilateral nonobstructing renal stones ranging in size between 3 and 6 mm. There is interval slippage of 6.2 mm obstructing stone to the distal third of the right ureter at the level of the iliac vessels. There is moderate right hydroureteronephrosis. There is no evidence for appendicitis. There is no bowel wall thickening. No evidence for small or la rge bowel obstruction. There is no evidence of abdominal ascites or lymphadenopathy. There is no evidence of intrinsic or extrinsic bladder mass. Diffusely thickened bladder. There is no pelvic ascites or lymphadenopathy. Images of the lung bases show no evidence of pleural or parenchymal mass. There are no pleural effusi ons. The bony structures are free of lytic or blastic lesions. IMPRESSION: Obstructing stone at the distal third of the right ureter. Moderate right hydroureteronephrosis. Thank you for your kind referral of this patient.
[2016-11-27] MEDS ORDERED: FLOM5CAP PO (02:11)
[2016-11-27] MEDS ORDERED: CIPR500T3 PO (02:11)
[2016-11-27] MEDS ORDERED: ZOFR4TAB3 PO (02:11)
[2016-11-27] MEDS ORDERED: OXYC1TAB23 PO (02:11)
[2016-11-27] MEDS ORDERED: LR 1,000 ML IV ONE (02:15)
[2016-11-27] MEDS ORDERED: ACETAMINOPHEN TAB 650MG DOSE (2X325MG) PO PRN (02:15)
[2016-11-27] MEDS ORDERED: LR 1,000 ML IV SCH ×2 (02:15→13:45)
[2016-11-27] MEDS ORDERED: HYDROmorphone HCL 1 MG/ML SYRINGE (J1170) IV PRN ×2 (02:15)
[2016-11-27] MEDS ORDERED: ONDANSETRON 4MG/2ML VIAL (J2405) IV PRN ×2 (02:15→13:45)
[2016-11-27] MEDS ORDERED: PERCOCET 5MG/325MG TAB PO PRN (02:15)
[2016-11-27] MEDS ORDERED: NICOTINE 21MG/24HR 1 EA TRANSDERMAL TD PRN (02:15)
[2016-11-27] MEDS ORDERED: HYDROmorphone HCL 1 MG/ML SYRINGE (J1170) As Ordered ONE (02:56)
[2016-11-27] MEDS ORDERED: CIPROFLOXACIN 200 MG in APPROPRIATE DILUENT 1 EA IV ONE (03:00)
[2016-11-27 03:10] VITALS: BP 175/84
[2016-11-27] MEDS ORDERED: KETOROLAC 30 MG/ML VIAL (J1885) IV SCH (03:30)
--- NOTE | 2016-11-27 03:40 | CR ---
DATE OF CONSULTATION: 11/27/2016 CONSULTATION REPORT FOR: Dr. Powell, urologist and Dr. Kristan Parker, emergency room provider. PRIMARY CARE PROVIDER: None. UROLOGIST: Dr. Fam covered by Dr. Powell. CHIEF COMPLAINT: Right-sided flank pain. HISTORY OF PRESENT ILLNESS: This is a 31-year-old male patient with underlying medical history of recurrent nephrolithiasis with stones with lithotripsy less than a year ago, obesity, smoker, poorly compliant, with no primary medical doctor (PMD), questionable history of sleep apnea, never had a sleep study, and irritable bowel syndrome presented to the emergency room with 1 week of progressively worsening right-sided flank pain, reported 8/10 pain. Also about 1-2 weeks ago patient reported hematuria, which improved with oral hydration. Patient was in the process of seeing Dr. Fam about 1-1/2 to 2 weeks ago. Subsequently, canceled his appointment, but when he tried to make another appointment, Dr. Fam was away on vacation. Subsequently, has not seen Dr. Fam for his problem to this day. Denies any fevers, chills, nausea, vomiting. Reported decreased urinary output. Denies any shortness of breath, chest pain, lower extremity edema. Denies history of high blood pressure, history of congestive heart failure. Able to ambulate for miles without any problem, baseline healthy. ALLERGIES: No known drug allergies. PAST MEDICAL HISTORY: 1. Irritable bowel syndrome. 2. History of nephrolithiasis with obstructive uropathy. PAST SURGICAL HISTORY: 1. Lithotripsy. 2. Colonoscopy by Dr. Roberson. SOCIAL HISTORY: Patient lives at home. Smokes one pack per day for 15 years. Occasional alcohol use during holidays only. No history of alcohol abuse. No illicit drug use. REVIEW OF SYSTEMS: Reported right-sided flank pain and decreased urinary output. All other review of systems are negative. HOME MEDICATION: - Cipro 500 mg by mouth twice a day - Zofran 4 mg by mouth every 4 hours - Percocet 5/325 one tablet every 6 hours as needed - Flomax 0.4 mg by mouth daily PHYSICAL EXAMINATION: VITAL SIGNS: Temperature 97.5, pulse 68, respirations 20, blood pressure 170/94, pulse oximetry 100% on room air. GENERAL: Patient obese, alert and oriented times three in no acute distress. HEENT: Normocephalic, atraumatic. PULMONARY: Bilaterally clear to auscultation. CARDIAC: Regular rate and rhythm. Normal S1, S2. No murmurs detected. ABDOMEN: Soft, hypoactive bowel sounds, nontender. Right-sided flank pain. EXTREMITIES: No clubbing, cyanosis or edema. LABORATORY: WBC 6.2, hemoglobin and hematocrit 14/40.3, platelets 212. Chemistry: Sodium 140, potassium 4.8, chloride 108, bicarbonate 29, BUN 1.8. CT scan of the abdomen shows a 6.2 mm stone obstructing at the distal third of the right ureter with moderate right hydroureteronephrosis. ASSESSMENT AND PLAN: This is a 31-year-old male patient with underlying medical history of obesity, questionable sleep apnea, irritable bowel syndrome, nephrolithiasis, presented with right-sided flank pain secondary to obstructive uropathy with 6.2 mm stone in the right distal third of ureter. 1. Obstructive uropathy with right-sided obstructing stone. Patient admitted under urology service. Medicine consulted for medical management. Intravenous (IV) fluids have been ordered. Urinalysis has been negative. Followup blood urea nitrogen (BUN) and creatinine. Strict intake and output (I and O). IV fluids. Patient ordered with Dilaudid for pain medication. Further pain medication regimen as per urology. One dose of Cipro has been given. Further preoperative antibiotics as per urology. Continue Flomax. Nothing by mouth for possible operating room (OR). Patient is low risk for low intermediate risk procedure. Is currently considered medically optimized for procedure. 2. Acute kidney injury (ACE). Likely secondary to obstructive uropathy. IV fluids. Ultrasound renal, urine study has been ordered. Followup BUN and creatinine. Avoid nephrotoxic agents. 3. Hypertension. Patient denies history of high blood pressure. Will need outpatient followup. Likely secondary to pain. Pain medication as prescribed. Recommend using appropriate blood pressure cuff. Once pain is better controlled, will start blood pressure medication as needed. Recommend outpatient followup with primary care provider. 4. Smoking. Nicotine patch as needed. 5. Morbid obesity with questionable history of obstructive sleep apnea. Patient never had a sleep study, but does have family history and risk factors. Will put the patient on obstructive sleep apnea (PRAVEEN) protocol. 6. Irritable bowel syndrome. Continue to monitor. Supportive care. Outpatient followup. 7. Deep venous thrombosis (DVT) prophylaxis. Given patient's age and risk factors and questionable history of hematuria and the potential for going to OR, will hold oral anticoagulation at this time. Place the patient on Venodyne sequential compression device. DISPOSITION: As per urologist. Patient is admitted to urological service. Medicine has been consulted. Patient will be cared for by Dr. Rosado from the hospitalists for all medical issues.
[2016-11-27] MEDS ORDERED: KETOROLAC 30 MG/ML VIAL (J1885) IV PRN (03:45)
[2016-11-27 06:00] VITALS: BP 144/82
--- NOTE | 2016-11-27 07:00 | REPUSA ---
CLINICAL HISTORY: Renal failure. Acute on top of chronic. TECHNIQUE: Realtime sonographic images were obtained in multiple projections. COMMENTS: Correlation is made to the prior exam performed on 11/27/2016. The right kidney measures 14.2x7.5x7.1cm and the left kidney measures 12.4 x 5.5 x 5.4 cm. There is m oderate right hydronephrosis. The left kidney is free of hydronephrosis. There is no evidence of leilani d or cystic mass. There is no perinephric fluid. Bilateral echogenic renal foci suggestive of nonobst ructing stones. IMPRESSION: Bilateral nephrolithiasis. Normal size of the kidneys. Moderate right hydroureteronephrosis. Thank you for your kind referral of this patient.
[2016-11-27 07:23] LABS: MEAN CORPUSCULAR HGB CONC 35.6 g/dl (32.0-36.5); MEAN CORPUSCULAR VOLUME 86.9 fl (80.0-96.0); RED CELL DISTRIBUTION WIDTH 11.9 % (11.5-14.5); WHITE BLOOD COUNT 5.2 10^3/uL (4.0-10.0)
[2016-11-27 07:43] LABS: CALCIUM LEVEL 8.4 MG/DL (8.5-10.1); CREATININE FOR GFR 1.7 MG/DL (0.70-1.30); GLOMERULAR FILTRATION RATE 50.6 (>60); MAGNESIUM LEVEL 2.1 MG/DL (1.8-2.4); POTASSIUM SERUM 4.1 MEQ/L (3.5-5.1)
[2016-11-27] MEDS ORDERED: SENOKOT S TAB PO SCH (09:00)
[2016-11-27] MEDS ORDERED: NS 1,000 ML IV SCH (09:45)
--- NOTE | 2016-11-27 10:20 | HPEPDOC ---
General Date of Admission 11/27/16 Other Providers Urologist: Dr. Fam Attending Physician: FERNANDO GARCIA MD Chief Complaint The patient is a 31-year-old male admitted with a reason for visit of Ureteral Stone. History of Present Illness The patient is a 31-year-old male admitted with a reason for visit of Ureteral Stone. He has a long h/o urolithiasis and has previously had ureteral stents placed as well as had lithotripsy in the past. Most recently he has been noted to have a right ureteral stone and has been on trial of passage for several weeks. During this time he has been to the ER several times. He has been planning to see Dr. Fam to arrange outpatient management of the ureteral stone but missed an appointment and has been planning to reschedule. He presented to the ER with worsening right flank pain and was noted to have some elevation in Cr. He also had some gross hematuria. He had no fever, nor any other signs of sepsis. CT scan demonstrated 6 mm distal ureteral stone as well as several non-obstructing bilateral renal stones. He was admitted for same day surgery for active surgical management of the right ureteral stone. Home Medications Scheduled Ciprofloxacin HCl (Ciprofloxacin HCl) 500 Mg Tab, 500 MG PO BID, (Reported) TO END 11/27/16 Ondansetron (Zofran Odt) 4 Mg Tab, 4 MG PO Q4H, (Reported) Tamsulosin Hydrochloride (Flomax) 0.4 Mg Cap, 0.4 MG PO DAILY, (Reported) Scheduled PRN Oxycodone/Acetaminophen (Oxycodone/Acetaminophen 5-325 mg) 1 Tab Tab, 1 TAB PO Q6H PRN for PAIN, (Reported) Allergies Coded Allergies: No Known Allergies (Verified , 11/15/08) Past Medical History Medical History Recurrent urolithiasis Irritable bowel syndrome Surgical History has had ureteral stents placed as well as lithotripsy Family History Significant Family History: No pertinent family hx Social History * Smoker: less than 1 pack/day Alcohol: occationally Drugs: denies Review of Symptoms Genitourinary: Reports: Hematuria, Denies: Dysuria, Frequency, Incontinence, Retention, Other Symptoms Physical Examination Abdomen Exam: Positive: Tenderness, Other Vital Signs Vital Signs Date Time Temp Pulse Resp B/P (MAP) Pulse Ox O2 Delivery O2 Flow Rate FiO2 11/27/16 06:00 96.6 80 18 144/82 (102) 99 Room Air Laboratory Data Labs 24H Laboratory Tests 2 11/27/16 00:23: White Blood Count 6.2, Red Blood Count 4.65, Hemoglobin 14.5, Hematocrit 40.3L, Mean Corpuscular Volume 86.7, Mean Corpuscular Hemoglobin 31.2, Mean Corpuscular Hemoglobin Concent 36.0, Red Cell Distribution Width 11.9, Platelet Count 212, Neutrophils (%) (Auto) 54.7, Lymphocytes (%) (Auto) 32.1, Monocytes ( %) (Auto) 9.3H, Eosinophils (%) (Auto) 3.2H, Basophils (%) (Auto) 0.5, Neutrophils # (Auto) 3.4, Lymphocytes # (Auto) 2.0, Monocytes # (Auto) 0.6, Eosinophils # (Auto) 0.2, Basophils # (Auto) 0.0, Immature Granulocyte # (Auto) 0.0, Nucleated Red Blood Cells % (auto) 0.0, Urine Appearance CLEAR, Urine Color YELLOW, Urine pH 6.0, Urine Specific [place] 1.015, Urine Protein NEGATIVE , Urine Glucose (UA) NEGATIVE, Urine Ketones NEGATIVE, Urine Urobilinogen 0.2, Urine Bilirubin NEGATIVE, Urine Leukocyte Esterase NEGATIVE, Urine Blood 1+H, Urine Nitrite NEGATIVE, Urine WBC (Auto) 3, Urine RBC (Auto) 3, Urine Hyaline Casts (Auto) 0, Urine Bacteria (Auto) NEGATIVE, Urine Squamous Epithelial Cells 0, Urine Mucus (Auto) SMALL, Urine Sperm (Auto) , Anion Gap 4L, Glomerular Filtration Rate 46.2L, Blood Urea Nitrogen 29H, Creatinine 1.84H, Sodium Level 140, Potassium Level 4.8, Chloride Level 108H, Carbon Dioxide Level 28, Calcium Level 8.6 11/27/16 06:06: Urine Random Osmolality 718, Urine Random Creatinine 128.0, Urine Random Total Protein 14.7H, Urine Random Sodium 119, Urine Random Potassium 36.9, Urine Random Chloride 135 11/27/16 07:02: Anion Gap 3L, Glomerular Filtration Rate 50.6L, Blood Urea Nitrogen 26H, Creatinine 1.70H, Sodium Level 140, Potassium Level 4.1, Chloride Level 107, Carbon Dioxide Level 30, Calcium Level 8.4L, Magnesium Level 2.1 CBC/BMP Laboratory Tests 11/27/16 00:23 Red Blood Count 4.65, Mean Corpuscular Volume 86.7, Mean Corpuscular Hemoglobin 31.2, Mean Corpuscular Hemoglobin Concent 36.0, Red Cell Distribution Width 11.9 , Neutrophils (%) (Auto) 54.7, Lymphocytes (%) (Auto) 32.1, Monocytes (%) (Auto ) 9.3 H, Eosinophils (%) (Auto) 3.2 H, Basophils (%) (Auto) 0.5, Neutrophils # ( Auto) 3.4, Lymphocytes # (Auto) 2.0, Monocytes # (Auto) 0.6, Eosinophils # (Auto ) 0.2, Basophils # (Auto) 0.0, Calcium Level 8.6 11/27/16 07:02 Red Blood Count 4.52, Mean Corpuscular Volume 86.9, Mean Corpuscular Hemoglobin 31.0, Mean Corpuscular Hemoglobin Concent 35.6, Red Cell Distribution Width 11.9 , Calcium Level 8.4 L Assessment/Plan Distal right ureteral stone s/p failed trial of passage Plan / VTE VTE Prophylaxis Ordered?: Yes VTE Exclusion Pharmacological: Active Bleeding Plan Plan 1. 24-hour same day surgery admission to urology 2. to OR for cystoscopy, right retrograde pyelogram, right ureteral stent placement, possible right ureteroscopy with laser lithotripsy. 3. Appreciate consultation from Hospitalist service. 4. Pt should f/u with Dr. Fam as an outpatient for ongoing care for recurrent urolithiasis. FERNANDO GARCIA MD Nov 27, 2016 10:20
[2016-11-27] MEDS ORDERED: CONRAY-60 60% 50ML VIAL (Q9961) As Ordered ONE (10:58)
[2016-11-27] MEDS ORDERED: ONDANSETRON 4MG/2ML VIAL (J2405) As Ordered ONE ×2 (11:19→13:22)
[2016-11-27] MEDS ORDERED: fentaNYL 100 MCG/2 ML INJECTION (J3010) As Ordered ONE ×2 (11:19→13:22)
[2016-11-27] MEDS ORDERED: LIDOCAINE 2% INJ 100 MG/5 ML SDV (FOR ANES.) As Ordered ONE (11:19)
[2016-11-27] MEDS ORDERED: MIDAZOLAM INJ 2 MG/2 ML VIAL (J2250) As Ordered ONE (11:19)
[2016-11-27] MEDS ORDERED: PROPOFOL 200 MG/20 ML VIAL As Ordered ONE (11:19)
[2016-11-27] MEDS ORDERED: METOCLOPRAMIDE INJ 10MG/2ML VIAL (J2765) As Ordered ONE (11:19)
[2016-11-27] MEDS ORDERED: GLYCOPYRROLATE INJ 0.2 MG/ML 2 ML VIAL As Ordered ONE (11:46)
[2016-11-27] MEDS ORDERED: PERCOCET 5MG/325MG TAB As Ordered ONE ×2 (13:22→13:52)
[2016-11-27] MEDS: PERCOCET 5MG/325MG TAB PO PRN ×2 (13:25→13:54)
[2016-11-27] MEDS: fentaNYL 100 MCG/2 ML INJECTION (J3010) IV PRN ×4 (13:25→13:54)
--- NOTE | 2016-11-27 14:54 | ROOPDOC ---
[facility] Report Of Operation Report of Operation DATE OF PROCEDURE: 11/27/16 PREPROCEDURE DIAGNOSES: Right ureteral stone. POSTPROCEDURE DIAGNOSES: Impacted right ureteral stone. PROCEDURE: Cystoscopy, right retrograde pyelogram, right ureteroscopy with laser lithotripsy, and right ureteral stent placement. SURGEON: Fernando Powell MD BRIDGES SUPERVISOR: radiation / chemistry technician ANESTHESIA: GETA ESTIMATED BLOOD LOSS: Approximately 2 mL. COMPLICATIONS: None REMARKS: Stone appeared larger than reported and was impacted into the wall of right ureter. JUSTIFICATION FOR PROCEDURE: This patient is a 31-year-old male with a past medical history significant for recurrent urolithiasis. he has undergone multiple procedures in the past for stones including placement of ureteral stents and lithotripsy. He presented to [facility] on several occasions over the past 2 weeks reporting right flank pain. Imaging demonstrated a right ureteral stone. He was discharged home from the emergency department for a trial of passage. However the stone did not pass any continued to have pain he presented to the emergency department again in the middle the night between 11/26/2016 and 11/27/2016. Repeat imaging demonstrated that the stone was in the distal right ureter his creatinine had elevated from the prior evaluation. Urology was consulted and recommended 24 hour same-day surgery admission and surgical intervention for the stone. The patient was counseled on the various options for the stone including ongoing observation, and surgical treatment options, including the risks benefits and alternatives of each option. Based on this discussion the patient elected to proceed to the above described procedure. DESCRIPTION OF PROCEDURE: The patient was transferred from the floor where he was admitted to the preoperative holding area. After full written consent was confirmed the anesthesia team evaluated the patient and brought him back to the operating room. General endotracheal anesthesia was initiated. The patient was placed in the supine position with all pressure points padded. He was then prepped and draped in the usual sterile manner. We began the procedure by performing a rigid cystoscopy which did not demonstrate any abnormalities in the urethra or bladder. Bilateral ureteral orifices were visualized and orthotopic position. The right ureteral orifice was widely patent indicating that ureteroscopy would likely be possible. A open-ended ureteral catheter was advanced through the cystoscope and used to cannulate the right ureteral orifice. Contrast was injected through the catheter and up the right ureter during which time fluoroscopic images were taken thereby creating a right retrograde pyelogram. The retrograde pyelogram demonstrated a rather obstructive -appearing stone as the contrast did not flow proximal to the stone and all. Using several different wires were able to advance a wire up into the right renal pelvis. This wire was secured to the drooping as a safety wire. The cystoscope was backed off the wire leaving the wire in place next we advanced a semirigid ureteroscope through the urethra into the bladder and up into the right ureter using the safety wire as a guide. We advanced the ureteroscope up to the level where the obstructive stone was thought to be based on the pyelogram. This was approximately 5 cm up the ureter from the orifice. The ureter was rather tight and somewhat hard to navigate at that level. However we were able to visualize the stone which appeared to be impacted into the wall of the ureter. A 200 laser fiber was used to break the stone down into multiple small fragments. A basket was then advanced through the ureteroscope and used to try to pull the stone fragments out of the ureter. However the basket became stuck in the ureter and the stones could not be manipulated out of the basket to remove the basket. With the basket stuck up there we had to disassemble the handle and removed the outer sheath of the basket. We were then able to advance the laser fiber alongside the basket. Using laser energy we broke the stone fragments down further and broke one of the wires of the basket. After this it was possible to remove the basket which came out fully intact. We exchanged it for a new basket and then removed the remaining fragments of stone. Several of the stone fragments were collected and sent for composition analysis. This took an extended period of time as there were multiple fragments and some of them were still embedded in the wall of the ureter. During this process no foreign bodies from the basket were visualized anywhere in the ureter. After all of the stone fragments had been removed we removed the ureteroscope. We replaced the cystoscope over the safety wire and into the bladder. A 6 [place] double-J ureteral stent was then advanced over the wire through the cystoscope and up into the right kidney under fluoroscopic guidance. When it appeared to be in good position the wire was removed. The distal curl of the stent was cystoscopically visualized to be in good position in the bladder. The bladder was then drained through the cystoscope sheath and the patient was placed back into supine position. Anesthesia was discontinued and the patient was transferred to the recovery area. He was hemodynamically stable throughout the case. PLAN: The patient will be transferred to the recovery area once he meets anesthesia criteria to be transferred back to the floor. He will likely be discharged home today. He and his girlfriend have been instructed that is very important need follow-up with Dr. Fam as an outpatient in approximately 4 weeks' time as he has an indwelling stent in place. Given the fact that the stone was impacted into the wall of the ureter I would recommend leaving the ureteral stent in place for 4 weeks' time prior to removal. FERNANDO POWELL MD Nov 27, 2016 14:54
[2016-11-27 16:06] VITALS: BP 130/70
--- NOTE | 2016-11-27 16:41 | REP ---
Retrograde pyelogram: The procedures performed by the urologist, Dr. mendoza. There are three intraoperative fluoroscopic views during placement of a right ureteral stent. The final film demonstrates the proximal pigtail in satisfactory location. The distal pigtails excluded at the inferior film margin. Fluoroscopic exposure time is 1 minute 19 seconds. Fluoroscopic images are performed with last image hold technology. These images require no additional radiation. Signed by Tomas Kumar MD 11/27/2016 04:33 P
[2016-11-27] MEDS ORDERED: TAMSULOSIN 0.4 MG CAP PO SCH (21:00)
--- NOTE | 2016-11-27 21:45 | ECGEPIP ---
Stationary ECG Study [facility] - ED Test Date: 2016-11-27 Pat Name: AMERICA CLAUDIO Department: [facility] Room: [place] [address] Gender: M Network Relations Consultant: CELINA PARRA : 1985 Requested By: AJ SOLO Order Number: [id number] Reading MD: Henry Lorenzo Measurements Intervals [place] Rate: 55 P: 6 NE: 179 QRS: 43 QRSD: 100 T: 16 QT: 412 QTc: 395 Interpretive Statements SINUS BRADYCARDIA WITH SINUS ARRHYTHMIA BENIGN EARLY REPOLARIZATION NO PRIORS Electronically Signed On 11-27-2016 21:45:38 EDT by Henry Lorenzo
== END 2016-11-27 16:35 | disposition home or self-care (01) ==
LOC: M ED 22:28 → M SDC 11-27 02:23 → M MS5PR 11-27 03:06 → M SDC 11-27 16:35
PROVIDERS: ATTEND Urology Pediatric Urology
DX: N20.1 Calculus of ureter (principal); E66.9 Obesity, unspecified; G47.30 Sleep apnea, unspecified; M54.9 Dorsalgia, unspecified; K58.9 Irritable bowel syndrome, unspecified; Z72.0 Tobacco use
CPT/HCPCS: 36415; 52356; 74420; 76775; 80048; 81001; 82360; 82436; 82570; 83735; 83935; 84133; 84156; 84300; 85025; 85027; 88300; 93005; 96374; 96375; 96376; 99284; C1769; C2617

== ENCOUNTER → 2016-12-17 | Outpatient (CLI) | payer OTHER ==
[~2016-12-17] MED LIST changes: +CIPR500T3 PO; +OXYC1TAB23 PO
[2016-12-17 14:02] LABS: MEAN CORPUSCULAR HEMOGLOBIN 30.8 pg (27.0-33.0); MEAN CORPUSCULAR HGB CONC 35.4 g/dl (32.0-36.5); PLATELET COUNT, AUTOMATED 247 10^3/uL (150-450); WHITE BLOOD COUNT 7.4 10^3/uL (4.0-10.0)
[2016-12-17 14:04] LABS: ANION GAP 4 MEQ/L (8-16); BLOOD UREA NITROGEN 22 MG/DL (7-18); CALCIUM LEVEL 9.1 MG/DL (8.5-10.1); CARBON DIOXIDE LEVEL 30 MEQ/L (21-32); CHLORIDE LEVEL 106 MEQ/L (98-107); GLOMERULAR FILTRATION RATE > 60.0 (>60); GLUCOSE, FASTING 87 MG/DL (70-105); POTASSIUM SERUM 4.6 MEQ/L (3.5-5.1); SODIUM LEVEL 140 MEQ/L (136-145)
== END ==
LOC: M SMT 09:44
PROVIDERS: ATTEND Urology
DX: Z01.818 Encounter for other preprocedural examination (principal); N20.0 Calculus of kidney

== ENCOUNTER 2016-12-23 10:01 | Day surgery (SDC) | payer OTHER ==
[~2016-12-23] VITALS: Ht 215.9 cm; Wt 148.8 kg
[2016-12-23] MEDS ORDERED: LR 1,000 ML IV ONE (10:15)
[2016-12-23] MEDS ORDERED: CIPROFLOXACIN 500 MG TAB PO ONE (10:15)
[2016-12-23] MEDS ORDERED: LIDOCAINE 2% INJ 100 MG/5 ML SDV (FOR ANES.) As Ordered ONE ×2 (11:52→14:32)
[2016-12-23] MEDS ORDERED: fentaNYL 100 MCG/2 ML INJECTION (J3010) As Ordered ONE ×2 (11:53→13:02)
[2016-12-23] MEDS ORDERED: MIDAZOLAM INJ 2 MG/2 ML VIAL (J2250) As Ordered ONE ×2 (11:54→13:02)
[2016-12-23] MEDS ORDERED: LIDOCAINE 2% 5ML JELLY UROJET As Ordered ONE (13:03)
[2016-12-23] MEDS ORDERED: CONRAY-60 60% 50ML VIAL (Q9961) As Ordered ONE (13:13)
[2016-12-23] MEDS ORDERED: PERCOCET 5MG/325MG TAB As Ordered ONE (14:11)
[2016-12-23 14:30] VITALS: BP 135/85
[2016-12-23] MEDS ORDERED: fentaNYL 100 MCG/2 ML INJECTION (J3010) IV PRN (14:30)
[2016-12-23] MEDS ORDERED: ONDANSETRON 4MG/2ML VIAL (J2405) IV PRN (14:30)
[2016-12-23] MEDS ORDERED: PERCOCET 5MG/325MG TAB PO PRN (14:30)
[2016-12-23] MEDS ORDERED: LR 1,000 ML IV SCH (14:30)
[2016-12-23] MEDS ORDERED: ACETAMINOPHEN TAB 650MG DOSE (2X325MG) PO PRN (14:30)
[2016-12-23] MEDS ORDERED: ONDANSETRON 4MG/2ML VIAL (J2405) As Ordered ONE (14:32)
[2016-12-23] MEDS ORDERED: dexameTHASONE 4 MG/ML 1ML VIAL (J1100) As Ordered ONE (14:32)
[2016-12-23] MEDS ORDERED: PROPOFOL 200 MG/20 ML VIAL As Ordered ONE (14:32)
[2016-12-23] MEDS ORDERED: ePHEDrine SULFATE 25 MG/5 ML(5MG/ML) SYRINGE As Ordered ONE (14:42)
--- NOTE | 2016-12-24 16:54 | RO ---
DATE OF PROCEDURE: 12/23/2016 PREPROCEDURE DIAGNOSIS: Kidney stones. POSTPROCEDURE DIAGNOSIS: Kidney stones. PROCEDURE: Cystoscopy, removal of right ureteral stent. SURGEON: Vince Fam MD FIELD TALENT QUALIFICATION SPECIALIST: None. ANESTHESIA: Monitored anesthesia care (MAC). OPERATIVE INDICATIONS: This is a 31-year-old male who recently had removal of right-sided kidney stones. He then had a stent placement. He is here today for stent removal as the patient did not want to have it removed in the office. DESCRIPTION OF PROCEDURE: The patient was brought to the operating room, where MAC anesthesia was administered. Prophylactic antibiotics were administered orally. He was then placed in the dorsal lithotomy position and prepped and draped in the usual sterile fashion. A rigid cystoscope was inserted into the urethral meatus and advanced into the bladder. Once in the bladder, the previously placed stent was seen. The stent was then grasped and withdrawn intact from the bladder. The bladder was then emptied of all fluid, and this marked conclusion of procedure. The patient was then taken out of the dorsal lithotomy position, awakened from anesthesia, and transported to the recovery room in stable condition. ESTIMATED BLOOD LOSS: 0 mL. COMPLICATIONS: None. SPECIMENS: None. PLAN: The patient will followup in the clinic in a few weeks to discuss stone prevention. HENOK
== END 2016-12-23 14:38 | disposition home or self-care (01) ==
LOC: M SDC 10:01
PROVIDERS: ATTEND Urology
DX: N20.0 Calculus of kidney (principal); K58.9 Irritable bowel syndrome, unspecified; R06.83 Snoring; G47.9 Sleep disorder, unspecified; Z72.0 Tobacco use

== ENCOUNTER → 2017-01-27 | Outpatient (CLI) | payer OTHER ==
[2017-01-27 14:31] LABS: ANION GAP 7 MEQ/L (8-16); BLOOD UREA NITROGEN 16 MG/DL (7-18); CALCIUM LEVEL 9.3 MG/DL (8.5-10.1); CARBON DIOXIDE LEVEL 27 MEQ/L (21-32); CHLORIDE LEVEL 105 MEQ/L (98-107); CREATININE FOR GFR 1.07 MG/DL (0.70-1.30); GLOMERULAR FILTRATION RATE > 60.0 (>60); GLUCOSE, FASTING 109 MG/DL (70-105); MAGNESIUM LEVEL 1.9 MG/DL (1.8-2.4); PHOSPHORUS LEVEL 3.4 MG/DL (2.5-4.9); POTASSIUM SERUM 4.5 MEQ/L (3.5-5.1); SODIUM LEVEL 139 MEQ/L (136-145); URIC ACID 4.3 MG/DL (3.5-7.2)
== END ==
LOC: M SMT 10:25
PROVIDERS: ATTEND Urology
DX: N20.0 Calculus of kidney (principal); E29.1 Testicular hypofunction

== ENCOUNTER → 2017-01-27 | Outpatient (REF) | payer OTHER ==
[2017-01-27 14:25] LABS: ALBUMIN 4.3 GM/DL (3.2-5.2); ALBUMIN/GLOBULIN RATIO 1.39 (1.00-1.93); ALKALINE PHOSPHATASE 63 U/L (45-117); ALT/SGPT 72 U/L (12-78); ANION GAP 5 MEQ/L (8-16); AST/SGOT 24 U/L (7-37); BILIRUBIN,TOTAL 0.4 MG/DL (0.2-1.0); BLOOD UREA NITROGEN 16 MG/DL (7-18); CARBON DIOXIDE LEVEL 30 MEQ/L (21-32); CHLORIDE LEVEL 104 MEQ/L (98-107); CHOLESTEROL LEVEL 195 MG/DL (<200); GLOMERULAR FILTRATION RATE > 60.0 (>60); GLUCOSE, FASTING 98 MG/DL (70-105); SODIUM LEVEL 139 MEQ/L (136-145); TOTAL PROTEIN 7.4 GM/DL (6.4-8.2); TRIGLYCERIDES LEVEL 249 MG/DL (<150)
== END ==
LOC: M SFHCPLAZ 01-04 09:46
PROVIDERS: ATTEND Family Medicine
DX: E66.01 Morbid (severe) obesity due to excess calories (principal)

== ENCOUNTER 2017-02-12 11:07 | Emergency (ER) | payer OTHER ==
[~2017-02-12] VITALS: Ht 185.4 cm; Wt 156.5 kg
[2017-02-12] MEDS ORDERED: ROBI30SU PO (11:18)
[2017-02-12] MEDS ORDERED: IPRATROPIUM 0.5MG/ALBUTEROL 2.5MG INH SOL UD 3ML (DUONEB)(J7620) NEB ONE (12:45)
[2017-02-12] MEDS ORDERED: PROAAER10 INH (13:23)
[2017-02-12] MEDS ORDERED: GUAISYP5 PO (13:23)
[2017-02-12] MEDS ORDERED: ZITHTAB PO (13:23)
[2017-02-12 13:30] VITALS: BP 156/92
== END 2017-02-12 13:32 | disposition home or self-care (01) ==
LOC: M ED 11:07
DX: J40 Bronchitis, not specified as acute or chronic (principal); F17.210 Nicotine dependence, cigarettes, uncomplicated; E66.9 Obesity, unspecified; J44.9 Chronic obstructive pulmonary disease, unspecified; F99 Mental disorder, not otherwise specified; Z82.49 Family history of ischemic heart disease and other diseases of the circulatory system; Z82.5 Family history of asthma and other chronic lower respiratory diseases

== ENCOUNTER → 2017-03-22 | Outpatient (REF) | payer OTHER ==
[2017-03-22 13:05] LABS: OSMOLALITY SERUM 289 MOSM/KG (275-295)
[2017-03-22 13:21] LABS: ANION GAP 5 MEQ/L (8-16); BLOOD UREA NITROGEN 13 MG/DL (7-18); CALCIUM LEVEL 8.7 MG/DL (8.5-10.1); CARBON DIOXIDE LEVEL 29 MEQ/L (21-32); CHLORIDE LEVEL 106 MEQ/L (98-107); CREATININE FOR GFR 0.91 MG/DL (0.70-1.30); FREE T4 0.85 NG/DL (0.76-1.46); GLOMERULAR FILTRATION RATE > 60.0 (>60); GLUCOSE, FASTING 78 MG/DL (70-100); POTASSIUM SERUM 4.3 MEQ/L (3.5-5.1); SODIUM LEVEL 140 MEQ/L (136-145)
[2017-03-22 13:25] LABS: CORTISOL AM 5.2 UG/DL (4.3-22.4); TOTAL 25(OH) VITAMIN D 20.7 NG/ML (30.0-100.0)
[2017-03-22 14:12] LABS: OSMOLALITY URINE 808 MOSM/KG (500-800)
[2017-03-25 08:07] LABS: METHYLMALONIC ACID 152 nmol/L (0-378)
== END ==
LOC: M SFHCPLAZ 09:40
DX: I10 Essential (primary) hypertension (principal); F32.9 Major depressive disorder, single episode, unspecified; R35.8 Other polyuria

== ENCOUNTER → 2017-04-07 | Outpatient (REF) | payer OTHER ==
[2017-04-13 00:06] LABS: CORTISOL SALIVARY 0.051 ug/dL (.)
== END ==
LOC: M SFHCPLAZ 15:51
DX: I10 Essential (primary) hypertension (principal)

== ENCOUNTER 2017-04-25 18:48 | Emergency (ER) | payer OTHER ==
[2017-04-25] MEDS: ASPIRIN 325 MG TAB PO (19:30)
[2017-04-25 19:48] LABS: BASO % 0.5 % (0.0-1.0); EOS # 0.3 10^3/uL (0.0-0.50); HEMOGLOBIN 14.9 g/dl (14.0-18.0); IMMATURE GRANULOCYTE % 0.2 % (0-3.0); LYMPH # 2.3 10^3/uL (1.5-4.5); LYMPH % 38.5 % (24.0-44.0); MEAN CORPUSCULAR HEMOGLOBIN 31.3 pg (27.0-33.0); MEAN CORPUSCULAR HGB CONC 36.3 g/dl (32.0-36.5); MEAN CORPUSCULAR VOLUME 86.1 fl (80.0-96.0); MONO # 0.5 10^3/uL (0.0-0.8); MONO % 8.4 % (0.0-5.0); NEUTROPHILS # 2.9 10^3/uL (1.8-7.7); NEUTROPHILS % 47.4 % (36.0-66.0); PLATELET COUNT, AUTOMATED 202 10^3/uL (150-450); RED BLOOD COUNT 4.76 10^6/uL (4.30-6.10); RED CELL DISTRIBUTION WIDTH 12.2 % (11.5-14.5); WHITE BLOOD COUNT 6.1 10^3/uL (4.0-10.0)
[2017-04-25 19:59] LABS: INR 0.98; PARTIAL THROMBOPLASTIN TIME 28.4 SECONDS (26.8-37.9); PROTHROMBIN TIME 13.1 SECONDS (12.4-14.5)
[2017-04-25 20:12] LABS: ANION GAP 5 MEQ/L (8-16); BLOOD UREA NITROGEN 23 MG/DL (7-18); CALCIUM LEVEL 8.6 MG/DL (8.5-10.1); CARBON DIOXIDE LEVEL 28 MEQ/L (21-32); CHLORIDE LEVEL 110 MEQ/L (98-107); CPK CREATINE PHOSPHOKINASE 510 U/L (39-308); CREATININE FOR GFR 1.03 MG/DL (0.70-1.30); GLOMERULAR FILTRATION RATE > 60.0 (>60); GLUCOSE, FASTING 98 MG/DL (70-100); SODIUM LEVEL 143 MEQ/L (136-145); TROPONIN I < 0.02 NG/ML (< 0.10)
[2017-04-25 20:13] LABS: CK-MB VALUE MASS 3.3 NG/ML (0.0-3.6); MB/CK RELATIVE INDEX 0.64 (< OR =4)
[2017-04-25] MEDS: NS 1,000 ML IV (20:15)
[2017-04-25] MEDS ORDERED: ISOVUE-370 76% 100ML VIAL (Q9967) As Ordered (20:18)
[2017-04-26 00:45] LABS: CK-MB VALUE MASS 2.8 NG/ML (0.0-3.6); CPK CREATINE PHOSPHOKINASE 427 U/L (39-308); MB/CK RELATIVE INDEX 0.65 (< OR =4); TROPONIN I < 0.02 NG/ML (< 0.10)
== END 2017-04-26 01:04 | disposition home or self-care (01) ==
LOC: M ED 04-26 01:04
DX: R07.89 Other chest pain (principal); I10 Essential (primary) hypertension; F41.9 Anxiety disorder, unspecified; Z87.440 Personal history of urinary (tract) infections; E66.9 Obesity, unspecified; Z79.899 Other long term (current) drug therapy; F17.210 Nicotine dependence, cigarettes, uncomplicated
CPT/HCPCS: Q9967

== ENCOUNTER 2017-10-28 04:01 | Emergency (ER) | payer MEDICAID, SELFPAY, OTHER ==
[2017-10-28 05:18] LABS: BASO % 0.3 % (0.0-1.0); EOS # 0.1 10^3/uL (0.0-0.50); EOS % 1.4 % (0.0-3.0); HEMATOCRIT 47.6 % (42.0-52.0); HEMOGLOBIN 17.1 g/dl (13.5-17.5); IMMATURE GRANULOCYTE % 0.5 % (0-3.0); LYMPH # 1.8 10^3/uL (1.5-4.5); LYMPH % 27.9 % (24.0-44.0); MEAN CORPUSCULAR HEMOGLOBIN 31.6 pg (27.0-33.0); MEAN CORPUSCULAR HGB CONC 35.9 g/dl (32.0-36.5); MONO # 0.3 10^3/uL (0.0-0.8); MONO % 3.9 % (0.0-5.0); NEUTROPHILS # 4.2 10^3/uL (1.8-7.7); PLATELET COUNT, AUTOMATED 199 10^3/uL (150-450); RED BLOOD COUNT 5.41 10^6/uL (4.30-6.10); RED CELL DISTRIBUTION WIDTH 12.1 % (11.5-14.5); WHITE BLOOD COUNT 6.4 10^3/uL (4.0-10.0)
[2017-10-28 05:33] LABS: ANION GAP 12 MEQ/L (8-16); BLOOD UREA NITROGEN 19 MG/DL (7-18); CALCIUM LEVEL 8.3 MG/DL (8.5-10.1); CARBON DIOXIDE LEVEL 21 MEQ/L (21-32); CHLORIDE LEVEL 111 MEQ/L (98-107); CREATININE FOR GFR 0.94 MG/DL (0.70-1.30); ETHYL ALCOHOL (ETHANOL) 0.153 % (0.000-0.010); GLOMERULAR FILTRATION RATE > 60.0 (>60); GLUCOSE, FASTING 116 MG/DL (70-100); POTASSIUM SERUM 4.8 MEQ/L (3.5-5.1); SODIUM LEVEL 144 MEQ/L (136-145)
== END 2017-10-28 06:43 | disposition home or self-care (01) ==
LOC: M ED 04:01
DX: F10.929 Alcohol use, unspecified with intoxication, unspecified (principal)
CPT/HCPCS: 71046

== ENCOUNTER 2017-10-31 12:27 | Emergency (ER) | payer MEDICAID, OTHER ==
[2017-10-31 12:56] LABS: BASO % 0.4 % (0.0-1.0); EOS # 0.2 10^3/uL (0.0-0.50); EOS % 3.5 % (0.0-3.0); HEMATOCRIT 48.4 % (42.0-52.0); HEMOGLOBIN 17.6 g/dl (13.5-17.5); IMMATURE GRANULOCYTE % 0.2 % (0-3.0); LYMPH # 1.4 10^3/uL (1.5-4.5); LYMPH % 29.4 % (24.0-44.0); MEAN CORPUSCULAR HEMOGLOBIN 31.6 pg (27.0-33.0); MEAN CORPUSCULAR HGB CONC 36.4 g/dl (32.0-36.5); MEAN CORPUSCULAR VOLUME 86.9 fl (80.0-96.0); MONO # 0.3 10^3/uL (0.0-0.8); MONO % 6.6 % (0.0-5.0); NEUTROPHILS # 2.9 10^3/uL (1.8-7.7); NEUTROPHILS % 59.9 % (36.0-66.0); PLATELET COUNT, AUTOMATED 211 10^3/uL (150-450); RED BLOOD COUNT 5.57 10^6/uL (4.30-6.10); RED CELL DISTRIBUTION WIDTH 11.9 % (11.5-14.5); WHITE BLOOD COUNT 4.9 10^3/uL (4.0-10.0)
[2017-10-31] MEDS: TAMSULOSIN 0.4 MG CAP PO (13:12)
[2017-10-31] MEDS: NS 1,000 ML IV (13:13)
[2017-10-31] MEDS: ONDANSETRON 4MG/2ML VIAL (J2405) IV (13:13)
[2017-10-31] MEDS: KETOROLAC 30 MG/ML VIAL (J1885) IV (13:13)
[2017-10-31 13:16] LABS: LIPASE 168 U/L (73-393)
[2017-10-31 13:23] LABS: ALBUMIN 4.2 GM/DL (3.2-5.2); ALBUMIN/GLOBULIN RATIO 1.17 (1.00-1.93); ALKALINE PHOSPHATASE 80 U/L (45-117); ALT/SGPT 53 U/L (12-78); ANION GAP 4 MEQ/L (8-16); AST/SGOT 29 U/L (7-37); BILIRUBIN,TOTAL 0.7 MG/DL (0.2-1.0); BLOOD UREA NITROGEN 21 MG/DL (7-18); CALCIUM LEVEL 9.6 MG/DL (8.5-10.1); CARBON DIOXIDE LEVEL 28 MEQ/L (21-32); CHLORIDE LEVEL 108 MEQ/L (98-107); CREATININE FOR GFR 1.25 MG/DL (0.70-1.30); GLOMERULAR FILTRATION RATE > 60.0 (>60); GLUCOSE, FASTING 97 MG/DL (70-100); POTASSIUM SERUM 4.7 MEQ/L (3.5-5.1); SODIUM LEVEL 140 MEQ/L (136-145); TOTAL PROTEIN 7.8 GM/DL (6.4-8.2)
[2017-10-31] MEDS: MORPHINE 4 MG/ML 1ML VIAL/SYRINGE (J2270) IV (14:04)
[2017-10-31] MEDS: PERCOCET 5MG/325MG TAB PO (14:45)
== END 2017-10-31 14:52 | disposition home or self-care (01) ==
LOC: M ED 12:27
DX: N20.1 Calculus of ureter (principal); N13.8 Other obstructive and reflux uropathy; N28.1 Cyst of kidney, acquired; N20.0 Calculus of kidney; I10 Essential (primary) hypertension; Z87.440 Personal history of urinary (tract) infections; K58.9 Irritable bowel syndrome, unspecified; M51.9 Unspecified thoracic, thoracolumbar and lumbosacral intervertebral disc disorder; F17.200 Nicotine dependence, unspecified, uncomplicated
CPT/HCPCS: J2270

== ENCOUNTER 2017-11-01 04:14 | Day surgery (SDC) | payer MEDICAID ==
[2017-10-31] MEDS: LevoFLOXacin IV 500 MG in APPROPRIATE DILUENT 1 EA IV (09:02)
[2017-11-01 05:14] LABS: KETONE, URINE AUTO RFX NEGATIVE (NEGATIVE); LEUKOCYTE ESTERASE UR AUTO RFX NEGATIVE (NEGATIVE); MUCUS, URINE RFX SMALL (NEGATIVE); NITRITE, URINE AUTO RFX NEGATIVE (NEGATIVE); RBC, URINE AUTO RFX 119 /HPF (0-3); SQUAM EPITHELIAL CELL UR AURFX 0 /HPF (0-6); TRANSITIONAL EPITHELIAL AU RFX <1 /HPF; WBC, URINE AUTO RFX 7 /HPF (0-3)
[2017-11-01] MEDS: NS 1,000 ML IV ×3 (05:55→07:42)
[2017-11-01] MEDS: KETOROLAC 30 MG/ML VIAL (J1885) IV (05:57)
[2017-11-01] MEDS: TAMSULOSIN 0.4 MG CAP PO (05:58)
[2017-11-01] MEDS: MORPHINE 4 MG/ML 1ML VIAL/SYRINGE (J2270) IV ×2 (05:58→06:54)
[2017-11-01] MEDS ORDERED: ONDANSETRON 4MG/2ML VIAL (J2405) As Ordered ×2 (05:59→08:38)
[2017-11-01] MEDS: ONDANSETRON 4MG/2ML VIAL (J2405) IV (06:01)
[2017-11-01 06:21] LABS: BASO % 0.2 % (0.0-1.0); EOS # 0.1 10^3/uL (0.0-0.50); EOS % 1.1 % (0.0-3.0); HEMATOCRIT 41.9 % (42.0-52.0); IMMATURE GRANULOCYTE % 0.4 % (0-3.0); LYMPH # 1.1 10^3/uL (1.5-4.5); LYMPH % 10.8 % (24.0-44.0); MEAN CORPUSCULAR HEMOGLOBIN 31.5 pg (27.0-33.0); MEAN CORPUSCULAR HGB CONC 36.5 g/dl (32.0-36.5); MEAN CORPUSCULAR VOLUME 86.2 fl (80.0-96.0); MONO # 0.7 10^3/uL (0.0-0.8); MONO % 7.2 % (0.0-5.0); NEUTROPHILS # 7.8 10^3/uL (1.8-7.7); NEUTROPHILS % 80.3 % (36.0-66.0); PLATELET COUNT, AUTOMATED 192 10^3/uL (150-450); RED BLOOD COUNT 4.86 10^6/uL (4.30-6.10); RED CELL DISTRIBUTION WIDTH 11.9 % (11.5-14.5); WHITE BLOOD COUNT 9.7 10^3/uL (4.0-10.0)
[2017-11-01 06:25] LABS: HEMOGLOBIN 15.3 g/dl (13.5-17.5)
[2017-11-01 06:34] LABS: ANION GAP 9 MEQ/L (8-16); BLOOD UREA NITROGEN 24 MG/DL (7-18); CALCIUM LEVEL 8.8 MG/DL (8.5-10.1); CARBON DIOXIDE LEVEL 25 MEQ/L (21-32); CHLORIDE LEVEL 107 MEQ/L (98-107); CREATININE FOR GFR 1.38 MG/DL (0.70-1.30); GLOMERULAR FILTRATION RATE > 60.0 (>60); GLUCOSE, FASTING 126 MG/DL (70-100); POTASSIUM SERUM 3.9 MEQ/L (3.5-5.1); SODIUM LEVEL 141 MEQ/L (136-145)
[2017-11-01] MEDS ORDERED: LevoFLOXacin(LEVAQUIN)500 MG/100 ML BAG (J1956) As Ordered (08:26)
[2017-11-01] MEDS ORDERED: MIDAZOLAM INJ 2 MG/2 ML VIAL (J2250) As Ordered (08:35)
[2017-11-01] MEDS ORDERED: fentaNYL 100 MCG/2 ML INJECTION (J3010) As Ordered (08:35)
[2017-11-01] MEDS ORDERED: PROPOFOL 200 MG/20 ML VIAL As Ordered ×2 (08:38→09:59)
[2017-11-01] MEDS ORDERED: LIDOCAINE 2% INJ 100 MG/5 ML SDV (FOR ANES.) As Ordered (08:38)
[2017-11-01] MEDS ORDERED: dexameTHASONE 4 MG/ML 1ML VIAL (J1100) As Ordered (08:38)
[2017-11-01] MEDS: CONRAY-60 60% 50ML VIAL (Q9961) As Ordered (10:01)
[2017-11-01] MEDS ORDERED: ONDANSETRON 4MG/2ML VIAL (J2405) IV (11:00)
[2017-11-01] MEDS ORDERED: LR 1,000 ML IV (11:00)
[2017-11-01] MEDS ORDERED: fentaNYL 100 MCG/2 ML INJECTION (J3010) IV (11:00)
[2017-11-01] MEDS ORDERED: PERCOCET 5MG/325MG TAB As Ordered (12:19)
[2017-11-01] MEDS: PERCOCET 5MG/325MG TAB PO (12:20)
[2017-11-01] MEDS ORDERED: ACETAMINOPHEN 650MG ER TAB (TYLENOL ARTHRITIS) PO (14:00)
[2017-11-01] MEDS ORDERED: CIPROFLOXACIN 500 MG TAB PO (18:00)
[2017-11-07 14:17] LABS: CA Oxalate Dihy 35 % (.); Ca Ox Monohydrate 55 % (.)
== END 2017-11-01 12:56 | disposition home or self-care (01) ==
LOC: M SDC 12:56 → M ED 04:14 → M SDC 07:00
DX: N20.1 Calculus of ureter (principal); N20.0 Calculus of kidney; I10 Essential (primary) hypertension; Z79.899 Other long term (current) drug therapy; E66.9 Obesity, unspecified; G47.30 Sleep apnea, unspecified; F41.9 Anxiety disorder, unspecified; F32.9 Major depressive disorder, single episode, unspecified
CPT/HCPCS: 52356

== ENCOUNTER 2017-11-10 07:57 | Day surgery (SDC) | payer MEDICAID ==
[2017-11-10] MEDS: LR 1,000 ML IV (08:34)
[2017-11-10] MEDS ORDERED: MIDAZOLAM INJ 2 MG/2 ML VIAL (J2250) As Ordered (09:12)
[2017-11-10] MEDS ORDERED: fentaNYL 100 MCG/2 ML INJECTION (J3010) As Ordered ×2 (09:13→14:16)
[2017-11-10] MEDS ORDERED: PROPOFOL 200 MG/20 ML VIAL As Ordered ×2 (09:16→09:43)
[2017-11-10] MEDS ORDERED: LIDOCAINE 2% INJ 100 MG/5 ML SDV (FOR ANES.) As Ordered ×2 (09:17→14:16)
[2017-11-10] MEDS: LIDOCAINE 2% 5ML JELLY UROJET As Ordered (09:41)
[2017-11-10] MEDS ORDERED: LR 1,000 ML IV (10:15)
[2017-11-10] MEDS ORDERED: fentaNYL 100 MCG/2 ML INJECTION (J3010) IV (10:15)
[2017-11-10] MEDS ORDERED: ACETAMINOPHEN TAB 650MG DOSE (2X325MG) PO (10:15)
[2017-11-10] MEDS: PERCOCET 5MG/325MG TAB PO (10:18)
[2017-11-10] MEDS ORDERED: ONDANSETRON 4MG/2ML VIAL (J2405) As Ordered (14:16)
== END 2017-11-10 11:30 | disposition home or self-care (01) ==
LOC: M SDC 11:30
DX: N20.0 Calculus of kidney (principal)
CPT/HCPCS: 52310

== ENCOUNTER 2018-04-18 08:42 | Emergency (ER) | payer MEDICAID, OTHER ==
[~2018-04-18] VITALS: Ht 185.4 cm; Wt 154.6 kg
[~2018-04-18 08:42] MED LIST changes: +FLOM0.4C39 PO; -FLOM5CAP PO; +GUAISYP5 PO; -IBUP200C10 PO; +IBUP200C25 PO; +KETO10TAB PO; +LISI-542 PO; +NORCOTAB PO; +PROAAER10 INH; +ROBI30SU PO; +TYLE650T35 PO; +ZITHTAB PO; +ZOFR4TAB14 PO; -ZOFR4TAB3 PO
[2018-04-18] MEDS ORDERED: IBUPOTC PO (08:50)
[2018-04-18 10:22] LABS: INFLUENZA A AMPLIFICATION POSITIVE (NEGATIVE); INFLUENZA B AMPLIFICATION NEGATIVE (NEGATIVE)
--- NOTE | 2018-04-18 10:24 | REP ---
Chest two views HISTORY: Cough Comparison: 10/28/2017 The lungs are clear. The heart is normal in size. The pulmonary vasculature is normal in appearance. The bony structure is intact. IMPRESSION: No acute disease. Electronically Signed by Brandon Farr MD 04/18/2018 10:15 A
[2018-04-18] MEDS ORDERED: ALBU17IN2 INH (10:36)
[2018-04-18] MEDS ORDERED: OSEL75CA PO (10:36)
[2018-04-18 10:48] VITALS: BP 161/74
--- NOTE | 2018-04-19 06:23 | ECGEPIP ---
Stationary ECG Study [facility] - ED Test Date: 2018-04-18 Pat Name: AMERICA CLAUDIO Department: Room: - Gender: M Pharmacy Service Associate: CAMILLE : 1985 Requested By: Henry Do Order Number: [id number] Reading MD: Henry Lorenzo Measurements Intervals [place] Rate: 78 P: 24 NM: 161 QRS: 49 QRSD: 97 T: 1 QT: 344 QTc: 392 Interpretive Statements SINUS RHYTHM NSTTW ABNORMALITIES SIMILAR TO 04/25/17 Electronically Signed On 04-19-2018 6:22:47 EST by Henry Lorenzo
== END 2018-04-18 10:49 | disposition home or self-care (01) ==
LOC: M ED 08:42
DX: J09.X2 Influenza due to identified novel influenza A virus with other respiratory manifestations (principal); R05 Cough; R07.9 Chest pain, unspecified; F10.10 Alcohol abuse, uncomplicated

== ENCOUNTER 2018-07-31 06:51 | Day surgery (SDC) | payer OTHER ==
[~2018-07-31] VITALS: Ht 185.4 cm; Wt 168.7 kg
[~2018-07-31 06:51] MED LIST changes: +ALBU17IN2 INH; +HYDR-3715 PO; +IBUPOTC PO; -NORCOTAB PO; +OSEL75CA PO
[2018-07-31] MEDS ORDERED: PROPOFOL 200 MG/20 ML VIAL As Ordered ONE (07:02)
[2018-07-31] MEDS ORDERED: NS 1,000 ML IV ONE (07:30)
--- NOTE | 2018-07-31 07:50 | ROOR ---
Patient Name: Manuel Duran Procedure Date: 07/31/2018 7:30 AM Date of : 1985 Age: 32 Room: [facility] Gender: Male Note Status: Finalized Procedure: Colonoscopy Indications: High risk colon cancer surveillance: Personal history of colonic polyps, Last colonoscopy: November 2015, Incidental change in bowel habits noted, Incidental Irritable bowel/diarrhea noted Providers: Nakul TESFAYE MD Referring MD: Josemanuel BOBBY MD Requesting Provider: Medicines: Monitored Anesthesia Care Complications: No immediate complications. Procedure: Pre-Anesthesia Assessment: - The heart rate, respiratory rate, oxygen saturations, blood pressure, adequacy of pulmonary ventilation, and response to care were monitored throughout the procedure. The Colonoscope was introduced through the anus and advanced to 10 cm into the ileum. The colonoscopy was performed without difficulty. The patient tolerated the procedure well. The quality of the bowel preparation was adequate. Findings: The perianal and digital rectal examinations were normal. A 4 mm polyp was found in the recto-sigmoid colon. The polyp was sessile. The polyp was removed with a cold snare. Resection and retrieval were complete. Small Internal Hemorrhoids. The exam was otherwise without abnormality. Impression: - One 4 mm polyp at the recto-sigmoid colon, removed with a cold snare. Resected and retrieved. - Small Internal Hemorrhoids. - The colon and terminal ileum examinations are otherwise normal. Recommendation: - Repeat colonoscopy in 5 years for surveillance. Nakul Tesfaye MD Nakul TESFAYE MD 07/31/2018 7:50:21 AM Electronically signed by Nakul TESFAYE MD Number of Addenda: 0 Note Initiated On: 07/31/2018 7:30 AM Estimated Blood Loss: Estimated blood loss: none.
[2018-07-31 08:10] VITALS: BP 141/86
== END 2018-07-31 08:16 | disposition home or self-care (01) ==
LOC: M OPP 06:51
PROVIDERS: ATTEND Internal Medicine Gastroenterology
DX: K63.5 Polyp of colon (principal); K64.8 Other hemorrhoids; R19.4 Change in bowel habit; Z86.010 Personal history of colon polyps

== ENCOUNTER 2018-10-24 11:59 | Emergency (ER) | payer OTHER ==
[~2018-10-24] VITALS: Ht 185.4 cm; Wt 171.1 kg
[2018-10-24 11:59] VITALS: BP 140/82
[~2018-10-24 11:59] MED LIST changes: -ALBU17IN2 INH; +PROV108A INH
[2018-10-24 12:49] LABS: BASO % 0.5 % (0.0-1.0); EOS # 0.2 10^3/uL (0.0-0.50); HEMATOCRIT 46.6 % (42.0-52.0); HEMOGLOBIN 16.5 g/dl (13.5-17.5); LYMPH # 1.7 10^3/uL (1.5-4.5); LYMPH % 29.5 % (24.0-44.0); MEAN CORPUSCULAR HGB CONC 35.4 g/dl (32.0-36.5); MEAN CORPUSCULAR VOLUME 87.4 fl (80.0-96.0); MONO # 0.3 10^3/uL (0.0-0.8); MONO % 5.9 % (0.0-5.0); NEUTROPHILS # 3.5 10^3/uL (1.8-7.7); NEUTROPHILS % 60.9 % (36.0-66.0); PLATELET COUNT, AUTOMATED 228 10^3/uL (150-450); RED BLOOD COUNT 5.33 10^6/uL (4.30-6.10); WHITE BLOOD COUNT 5.7 10^3/uL (4.0-10.0)
[2018-10-24 13:15] LABS: ALBUMIN 3.9 GM/DL (3.2-5.2); ALT/SGPT 86 U/L (12-78); BILIRUBIN,DIRECT 0.1 MG/DL (0.0-0.2); BILIRUBIN,TOTAL 0.4 MG/DL (0.2-1.0); BLOOD UREA NITROGEN 11 MG/DL (7-18); CARBON DIOXIDE LEVEL 26 MEQ/L (21-32); CHLORIDE LEVEL 108 MEQ/L (98-107); GLOMERULAR FILTRATION RATE > 60.0 (>60); GLUCOSE, FASTING 103 MG/DL (70-100); LIPASE 142 U/L (73-393); POTASSIUM SERUM 4.5 MEQ/L (3.5-5.1); SODIUM LEVEL 141 MEQ/L (136-145)
[2018-10-24] MEDS ORDERED: KETOROLAC 30 MG/ML VIAL (J1885) IM ONE (15:15)
--- NOTE | 2018-10-24 16:33 | REP ---
T of the abdomen pelvis without IV and oral contrast for right flank pain: Comparisons is 11/01/2017. There are two nonobstructive right renal calculi measuring 5 mm in diameter each, not present previously. There is no right hydronephrosis. There is no right ureteral calculus. There are no left renal calculi. The previous left renal calculi are no longer present. There are no left ureteral calculi. The previous left ureteral calculus is no longer present. There is no left hydronephrosis. There are no bladder calculi. There is no perinephric stranding. There is is wall thickening of the entire colon. This is compatible with colitis in the appropriate clinical setting. There is no bowel distension or obstruction. There are no diverticuli. The appendix is unremarkable. The visualized lung edwards are unremarkable. The unenhanced hepatic parenchyma, gallbladder, pancreas, spleen, adrenals, abdominal aorta, small bowel and mesentery are unremarkable. Pelvis: There is no ascites or adenopathy. The bladder is unremarkable. Impression: Wall thickening of the entire colon. This is compatible with colitis in the appropriate clinical setting. There is no ascites, adenopathy or mass. There are two nonobstructive right renal calculi as an interval change. There is no ureteral calculus or hydronephrosis. The previous left renal calculi are no longer present. The previous left ureteral calculus is no longer present. There is no left hydronephrosis. Electronically Signed by Tomas Kumar MD 10/24/2018 04:23 P
[2018-10-24] MEDS ORDERED: FLOM0.4C39 PO (16:49)
[2018-10-24] MEDS ORDERED: ONDA4TAB6 PO (16:53)
== END 2018-10-24 17:12 | disposition home or self-care (01) ==
LOC: M ED 11:59
DX: K52.9 Noninfective gastroenteritis and colitis, unspecified (principal); R74.0 Nonspecific elevation of levels of transaminase and lactic acid dehydrogenase [LDH]; N20.0 Calculus of kidney; K21.9 Gastro-esophageal reflux disease without esophagitis; M54.9 Dorsalgia, unspecified; G89.29 Other chronic pain; Z87.442 Personal history of urinary calculi; F17.210 Nicotine dependence, cigarettes, uncomplicated
CPT/HCPCS: 74176; 80048; 80076; 81001; 83690; 85025; 96372; 99284; J1885

== ENCOUNTER 2018-11-26 12:31 | Emergency (ER) | payer OTHER ==
[~2018-11-26] VITALS: Ht 185.4 cm; Wt 171.1 kg
[~2018-11-26 12:31] MED LIST changes: +ONDA4TAB6 PO
[2018-11-26 12:50] VITALS: BP 155/88
[2018-11-26] MEDS ORDERED: ASPIRIN 325 MG TAB PO ONE (13:30)
[2018-11-26] MEDS ORDERED: GI COCKTAIL 50ML BTL(HYOSCYAMINE/MAALOX/LIDOCAINE VISCOUS)(1:3:1) PO ONE (13:30)
[2018-11-26 13:37] LABS: BASO % 0.4 % (0.0-1.0); EOS # 0.2 10^3/uL (0.0-0.5); EOS % 3.6 % (0.0-3.0); HEMATOCRIT 44.5 % (42.0-52.0); HEMOGLOBIN 15.9 g/dl (13.5-17.5); LYMPH # 1.8 10^3/uL (1.5-5.0); LYMPH % 34.5 % (24.0-44.0); MEAN CORPUSCULAR HEMOGLOBIN 31.5 pg (27.0-33.0); MEAN CORPUSCULAR HGB CONC 35.7 g/dl (32.0-36.5); MEAN CORPUSCULAR VOLUME 88.3 fl (80.0-96.0); MONO # 0.5 10^3/uL (0.0-0.8); MONO % 9.1 % (0.0-5.0); NEUTROPHILS # 2.8 10^3/uL (1.5-8.5); NEUTROPHILS % 52.2 % (36.0-66.0); PLATELET COUNT, AUTOMATED 214 10^3/uL (150-450); RED BLOOD COUNT 5.04 10^6/uL (4.30-6.10); WHITE BLOOD COUNT 5.3 10^3/uL (4.0-10.0)
[2018-11-26 13:52] LABS: PROTHROMBIN TIME 12.9 SECONDS (11.8-14.0)
[2018-11-26 14:04] LABS: BLOOD UREA NITROGEN 17 MG/DL (7-18); CALCIUM LEVEL 8.8 MG/DL (8.5-10.1); CARBON DIOXIDE LEVEL 29 MEQ/L (21-32); CHLORIDE LEVEL 108 MEQ/L (98-107); CPK CREATINE PHOSPHOKINASE 193 U/L (39-308); CREATININE FOR GFR 1.02 MG/DL (0.70-1.30); GLOMERULAR FILTRATION RATE > 60.0 (>60); GLUCOSE, FASTING 88 MG/DL (70-100); MB/CK RELATIVE INDEX 1.04 (< OR =4); POTASSIUM SERUM 4.6 MEQ/L (3.5-5.1); SODIUM LEVEL 141 MEQ/L (136-145); TROPONIN I < 0.02 NG/ML (< 0.10)
--- NOTE | 2018-11-27 07:19 | REP ---
AP PORTABLE CHEST: 11/26/2018. Comparison: Chest two-view 04/18/2018. Clinical history: Chest pain. Findings: Lungs are adequately inflated. There is no infiltrate, effusion, pleural thickening or parenchymal lesion. Some minor subsegmental atelectasis in the lower lung zone on the left. The heart, mediastinal and hilar contour, aorta and airway all grossly intact. No free air. Impression: 1. Minor left basilar atelectatic change laterally but no infiltrate, effusion, cardiomegaly or edema. Electronically Signed by Ronal Moody MD 11/27/2018 08:23 A
--- NOTE | 2018-11-27 08:26 | ECGEPIP ---
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
== END 2018-11-26 14:33 | disposition left against medical advice (07) ==
LOC: M ED 12:31
DX: R07.9 Chest pain, unspecified (principal); I10 Essential (primary) hypertension; F17.200 Nicotine dependence, unspecified, uncomplicated; E78.5 Hyperlipidemia, unspecified

== ENCOUNTER 2018-11-26 22:58 | Emergency (ER) | payer OTHER ==
[~2018-11-26] VITALS: Ht 185.4 cm; Wt 168.2 kg
[2018-11-26] MEDS ORDERED: NS 1,000 ML IV SCH (23:37)
[2018-11-26] MEDS ORDERED: SUCRALFATE 1 GM TAB PO ONE (23:45)
[2018-11-26] MEDS ORDERED: PANTOPRAZOLE 40MG INJ (PROTONIX) (C9113) IV ONE (23:45)
[2018-11-27 00:18] LABS: BASO % 0.6 % (0.0-1.0); EOS # 0.2 10^3/uL (0.0-0.5); HEMATOCRIT 44.6 % (42.0-52.0); HEMOGLOBIN 16.1 g/dl (13.5-17.5); LYMPH # 2.3 10^3/uL (1.5-5.0); LYMPH % 35.9 % (24.0-44.0); MEAN CORPUSCULAR HEMOGLOBIN 31.6 pg (27.0-33.0); MEAN CORPUSCULAR HGB CONC 36.1 g/dl (32.0-36.5); MEAN CORPUSCULAR VOLUME 87.6 fl (80.0-96.0); MONO # 0.5 10^3/uL (0.0-0.8); NEUTROPHILS # 3.3 10^3/uL (1.5-8.5); PLATELET COUNT, AUTOMATED 219 10^3/uL (150-450); RED BLOOD COUNT 5.09 10^6/uL (4.30-6.10); WHITE BLOOD COUNT 6.4 10^3/uL (4.0-10.0)
[2018-11-27 00:24] LABS: INR 1.03; PROTHROMBIN TIME 13.2 SECONDS (11.8-14.0)
[2018-11-27 00:27] LABS: D-DIMER QUANT 381.55 ng/ml (<500)
[2018-11-27 00:51] LABS: BLOOD UREA NITROGEN 16 MG/DL (7-18); CALCIUM LEVEL 9.1 MG/DL (8.5-10.1); CARBON DIOXIDE LEVEL 27 MEQ/L (21-32); CHLORIDE LEVEL 108 MEQ/L (98-107); CK-MB VALUE MASS 1.7 NG/ML (<3.6); CPK CREATINE PHOSPHOKINASE 210 U/L (39-308); CREATININE FOR GFR 1.18 MG/DL (0.70-1.30); GLOMERULAR FILTRATION RATE > 60.0 (>60); GLUCOSE, FASTING 105 MG/DL (70-100); MB/CK RELATIVE INDEX 0.81 (< OR =4); POTASSIUM SERUM 4.2 MEQ/L (3.5-5.1); SODIUM LEVEL 142 MEQ/L (136-145); TROPONIN I < 0.02 NG/ML (< 0.10)
[2018-11-27 01:30] VITALS: BP 121/58
--- NOTE | 2018-11-27 08:29 | ECGEPIP ---
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
== END 2018-11-27 01:53 | disposition home or self-care (01) ==
LOC: M ED 22:58
DX: R07.89 Other chest pain (principal); F17.210 Nicotine dependence, cigarettes, uncomplicated; N18.9 Chronic kidney disease, unspecified
CPT/HCPCS: 80048; 82550; 82553; 85025; 85379; 85610; 93005; 93041; 94760; 96361; 96374; 99285; C9113

== ENCOUNTER 2019-05-30 14:42 | Emergency (ER) | payer OTHER ==
[~2019-05-30] VITALS: Ht 193 cm; Wt 173.2 kg
[2019-05-30] MEDS ORDERED: COMBIVENT RESPIMAT 100-20MCG INHALER 4GM INH ONE (15:30)
[2019-05-30] MEDS ORDERED: methylPREDNISolone INJ 125 MG/2 ML VIAL (J2930) IV ONE (15:30)
[2019-05-30 15:47] LABS: BASO % 0.5 % (0.0-1.0); EOS # 0.2 10^3/uL (0.0-0.5); EOS % 2.8 % (0.0-3.0); HEMATOCRIT 45.3 % (42.0-52.0); HEMOGLOBIN 15.9 g/dl (13.5-17.5); LYMPH # 1.8 10^3/uL (1.5-5.0); LYMPH % 29.8 % (24.0-44.0); MEAN CORPUSCULAR HEMOGLOBIN 31.2 pg (27.0-33.0); MEAN CORPUSCULAR HGB CONC 35.1 g/dl (32.0-36.5); MONO # 0.4 10^3/uL (0.0-0.8); MONO % 7.3 % (0.0-5.0); NEUTROPHILS # 3.6 10^3/uL (1.5-8.5); NEUTROPHILS % 59.4 % (36.0-66.0); PLATELET COUNT, AUTOMATED 219 10^3/uL (150-450); RED BLOOD COUNT 5.09 10^6/uL (4.30-6.10)
[2019-05-30 15:59] LABS: INR 1.04; PROTHROMBIN TIME 13.3 SECONDS (11.8-14.0)
[2019-05-30 16:02] LABS: D-DIMER QUANT 274.6 ng/ml (<500)
[2019-05-30 16:21] LABS: ALBUMIN 3.9 GM/DL (3.2-5.2); ALT/SGPT 67 U/L (12-78); BILIRUBIN,DIRECT < 0.1 MG/DL (0.0-0.2); BILIRUBIN,TOTAL 0.4 MG/DL (0.2-1.0); BLOOD UREA NITROGEN 21 MG/DL (7-18); CARBON DIOXIDE LEVEL 29 MEQ/L (21-32); CHLORIDE LEVEL 110 MEQ/L (98-107); CK-MB VALUE MASS 2.4 NG/ML (<3.6); CPK CREATINE PHOSPHOKINASE 317 U/L (39-308); CREATININE FOR GFR 1.14 MG/DL (0.70-1.30); FREE T4 0.96 NG/DL (0.76-1.46); GLOMERULAR FILTRATION RATE > 60.0 (>60); GLUCOSE, FASTING 95 MG/DL (70-100); LIPASE 431 U/L (73-393); MB/CK RELATIVE INDEX 0.76 (< OR =4); POTASSIUM SERUM 4.4 MEQ/L (3.5-5.1); SODIUM LEVEL 144 MEQ/L (136-145); TOTAL PROTEIN 6.8 GM/DL (6.4-8.2); TROPONIN I < 0.02 NG/ML (< 0.10)
--- NOTE | 2019-05-30 16:21 | REP ---
Portable chest x-ray: Single view. History: Chest pain. Comparison chest x-ray: November 26, 2018 and April 18, 2018. Findings: The lungs are symmetrically aerated and free of infiltrate. Pleural angles are sharp. Heart size is normal. Pulmonary vasculature is not increased. EKG monitoring electrodes overlie the chest. No heart does not appear to be enlarged and is unchanged. No significant bony abnormality. Impression: No active disease. Electronically Signed by Chuck Ortiz MD 05/30/2019 04:13 P
[2019-05-30] MEDS ORDERED: ASPIRIN 81 MG CHEW TABLET PO ONE (16:30)
[2019-05-30 16:46] VITALS: BP_DIAS 73
[2019-05-30 17:27] VITALS: BP_SYST 148
[2019-05-30] MEDS ORDERED: VENTAER INH (17:27)
--- NOTE | 2019-05-31 18:20 | ECGEPIP ---
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
== END 2019-05-30 17:44 | disposition left against medical advice (07) ==
LOC: M ED 14:42
DX: R07.9 Chest pain, unspecified (principal); I10 Essential (primary) hypertension; K58.0 Irritable bowel syndrome with diarrhea; F17.200 Nicotine dependence, unspecified, uncomplicated; Z53.20 Procedure and treatment not carried out because of patient's decision for unspecified reasons; Z87.442 Personal history of urinary calculi
CPT/HCPCS: 71045; 80048; 80076; 82550; 82553; 83690; 84439; 84443; 85025; 85379; 85610; 85730; 87040; 87486; 87581; 87633; 87798; 93005; 93041; 94640; 94664; 94760; 96374; 99285; J2930; U0002

== ENCOUNTER → 2019-10-31 | Outpatient (CLI) | payer OTHER ==
[~2019-10-31] MED LIST changes: +ACET650T61 PO; +DOCU100C16 PO; +ISOVUE-370 76% 100ML VIAL As Ordered ONE; +PERCOCET PO; -TYLE650T35 PO; +VENTAER INH
--- NOTE | 2019-11-28 07:47 | REP ---
PRE- AND POSTCONTRAST CT ABDOMEN CLINICAL: Left renal mass. TECHNIQUE: Axial precontrast, arterial phase, portal venous phase, and delayed phase images of the abdomen were obtained using 100 mL Isovue-370 intravenous contrast material with coronal and sagittal reformations. FINDINGS: There is a 2.5 cm enhancing mass at the lower pole of the left kidney. The adjacent perinephric fat appears clean and without stranding or infiltration. The kidney itself demonstrates normal symmetric enhancement and no associated obvious adenopathy. Further evaluation of the urinary tract system demonstrates a few nonobstructing right renal calculi measuring 1-2 mm without perinephric stranding or hydronephrosis. Fatty infiltration to the liver noted without focal hepatic lesion. Spleen, pancreas, gallbladder, and bilateral adrenal glands are normal. Visualized portions of the enteric system are normal. No ascites. No free air. No adenopathy. Abdominal aorta and vasculature appeared normal. Musculoskeletal structures are without focal osseous abnormality. IMPRESSION: * A 2.5 cm enhancing lesion along the lower pole left kidney consistent with neoplasm and requiring further investigation and consultation. * Few nonobstructing right renal calculi measuring 1-2 mm. MTDD
== END ==
LOC: M RAD 15:02
PROVIDERS: ATTEND Urology
DX: N28.89 Other specified disorders of kidney and ureter (principal); N20.0 Calculus of kidney
CPT/HCPCS: 74170; Q9967

== ENCOUNTER → 2019-11-21 | Outpatient (CLI) | payer OTHER ==
[~2019-11-21] MED LIST changes: -ISOVUE-370 76% 100ML VIAL As Ordered ONE
[2019-11-21 16:27] LABS: HEMATOCRIT 48.4 % (42.0-52.0); HEMOGLOBIN 16.7 g/dl (13.5-17.5); MEAN CORPUSCULAR HEMOGLOBIN 30.9 pg (27.0-33.0); MEAN CORPUSCULAR HGB CONC 34.5 g/dl (32.0-36.5); MEAN CORPUSCULAR VOLUME 89.6 fl (80.0-96.0); PLATELET COUNT, AUTOMATED 248 10^3/uL (150-450); WHITE BLOOD COUNT 6.6 10^3/uL (4.0-10.0)
[2019-11-21 16:43] LABS: BLOOD UREA NITROGEN 19 MG/DL (7-18); CALCIUM LEVEL 9.7 MG/DL (8.5-10.1); CARBON DIOXIDE LEVEL 30 MEQ/L (21-32); CHLORIDE LEVEL 106 MEQ/L (98-107); CREATININE FOR GFR 1.42 MG/DL (0.70-1.30); GLOMERULAR FILTRATION RATE > 60.0 (>60); GLUCOSE, FASTING 71 MG/DL (70-100); POTASSIUM SERUM 4.5 MEQ/L (3.5-5.1); SODIUM LEVEL 142 MEQ/L (136-145)
[2019-11-21 16:46] LABS: INR 0.95; PROTHROMBIN TIME 12.9 SECONDS (12.5-14.3)
[2019-11-21 16:47] LABS: PARTIAL THROMBOPLASTIN TIME 28.5 SECONDS (24.2-38.5)
--- NOTE | 2019-11-27 14:42 | REPPI ---
CHEST X-RAY CLINICAL: Preoperative assessment. COMPARISON: 05/30/2019 FINDINGS: Mediastinum and cardiac silhouette normal. Lung edwards clear. No focal consolidation, effusion, or pneumothorax. Skeletal structures intact. IMPRESSION: Normal chest x-ray. No acute cardiopulmonary process. MTDD
== END ==
LOC: M PLAIMG 14:30
PROVIDERS: ATTEND Family Medicine
DX: Z01.818 Encounter for other preprocedural examination (principal)

== ENCOUNTER → 2019-11-24 | Outpatient (CLI) | payer OTHER | LOC: M LABSMTC 11:45 | PROVIDERS: ATTEND Anesthesiology | DX: Z01.812 Encounter for preprocedural laboratory examination (principal); Z20.828 Contact with and (suspected) exposure to other viral communicable diseases | CPT/HCPCS: C9803; U0003 ==

== ENCOUNTER 2019-11-29 10:44 | Inpatient (IN) | payer OTHER ==
[~2019-11-29] VITALS: Ht 185.4 cm; Wt 171.9 kg
[~2019-11-29 10:44] MED LIST changes: -DOCU100C16 PO; +LIDOCAINE 2% 100MG/5ML SDV (FOR ANES.) As Ordered ONE; +LR 1,000 ML IV ONE; +MIDAZOLAM INJ 2MG/2ML VIAL (J2250 PER 1MG) As Ordered ONE; +ONDANSETRON 4MG/2ML VIAL As Ordered ONE; -PERCOCET PO; +ROCURONIUM BROMIDE 50 MG/5 ML VIAL As Ordered ONE; +ceFAZolin SOD 1 GM in D5W MINI-BAG PLUS 50 ML IV ONE; +ceFAZolin SOD 2 GM in IV 1 EA IV ONE; +dexameTHASONE 4 MG/ML 1ML VIAL (J1100 PER 1MG) As Ordered ONE; +fentaNYL 250 MCG/5 ML INJECTION (J3010) As Ordered ONE; +propofoL 200 MG/20 ML VIAL As Ordered ONE
[2019-11-29] MEDS ORDERED: MIDAZOLAM INJ 2MG/2ML VIAL (J2250 PER 1MG) As Ordered ONE ×2 (11:31→14:35)
[2019-11-29] MEDS ORDERED: MIDAZOLAM INJ 2MG/2ML VIAL (J2250 PER 1MG) IV PRN (11:45)
[2019-11-29] MEDS ORDERED: LIDOCAINE 1% SDV 30ML VIAL As Ordered ONE (14:00)
[2019-11-29] MEDS ORDERED: BUPIVACAINE HCL 0.25% 30ML VIAL As Ordered ONE (14:00)
[2019-11-29] MEDS: NS 1,000 ML IV SCH (14:23)
[2019-11-29] MEDS ORDERED: PERCOCET 5MG/325MG TAB PO PRN (14:30)
[2019-11-29] MEDS ORDERED: ALBUTEROL 90 MCG/ACT 8GM HFA INHALER INH PRN (14:30)
[2019-11-29] MEDS ORDERED: ACETAMINOPHEN TAB 650MG DOSE (2X325MG) PO PRN (14:30)
[2019-11-29] MEDS: ceFAZolin SOD 2 GM in IV 1 EA IV ONE (15:12)
[2019-11-29] MEDS: ceFAZolin SOD 1 GM in D5W MINI-BAG PLUS 50 ML IV ONE (15:12)
[2019-11-29] MEDS ORDERED: PHENYLephrine HCL 500 MCG/5 ML (100MCG/ML) SYRINGE (J2370) As Ordered ONE (15:13)
[2019-11-29] MEDS ORDERED: ALBUTEROL 6.7GM INHALER **FOR ANES. CART/OMNICELL ONLY As Ordered ONE (15:13)
[2019-11-29] MEDS ORDERED: MANNITOL 25% 12.5 GM/50 ML VIAL (J2150) As Ordered ONE (15:19)
[2019-11-29] MEDS ORDERED: SEVOFLURANE INHAL SOLN 250 ML BTL As Ordered ONE (15:59)
[2019-11-29] MEDS ORDERED: HYDROmorphone HCL 2 MG/ML 1ML VIAL (J1170) As Ordered ONE (16:14)
[2019-11-29] MEDS ORDERED: SUGAMMADEX SODIUM 500 MG/5 ML VIAL (BRIDION) As Ordered ONE (16:14)
[2019-11-29] MEDS ORDERED: ACETAMINOPHEN 1000MG 100ML IV BTL (OFIRMEV) (J0131 PER 10MG) As Ordered ONE (16:14)
[2019-11-29] MEDS ORDERED: ROCURONIUM BROMIDE 50 MG/5 ML VIAL As Ordered ONE (16:45)
[2019-11-29] MEDS: fentaNYL 100 MCG/2 ML INJECTION (J3010) IV PRN ×4 (19:10→19:30)
[2019-11-29] MEDS ORDERED: fentaNYL 100 MCG/2 ML INJECTION (J3010) As Ordered ONE (19:10)
[2019-11-29] MEDS: oxyCODONE 5MG TAB PO PRN ×2 (19:10→19:45)
[2019-11-29] MEDS ORDERED: oxyCODONE 5MG TAB As Ordered ONE (19:10)
--- NOTE | 2019-11-29 19:15 | ROOPDOC ---
[facility] Report Of Operation Report of Operation DATE OF PROCEDURE: 11/29/19 PREPROCEDURE DIAGNOSIS: Left renal neoplasm. POSTPROCEDURE DIAGNOSIS: Left renal neoplasm. PROCEDURE: Left robotic-assisted laparoscopic partial nephrectomy with intraoperative ultrasound for tumor mapping. SURGEON: Ashli Reyes MD NURSE RESEARCH: Nica Sawyer ANESTHESIA: General OPERATIVE INDICATIONS: This is a 34 year old male recently found to have an approximately 2.5cm enhancing mass on his left kidney. He was brought to the operating room today for treatment. DESCRIPTION OF PROCEDURE: The patient was brought to the operating room where general anesthesia was induced. Prophylactic antibiotics were infused. A Courtney catheter was inserted into the bladder under sterile conditions and the balloon was filled with sterile water. He was then placed in the right lateral decubitus position. All pressure points were appropriately padded and an axillary roll was placed. We then secured the patient to the table with tape. His abdomen was then prepped and draped in the usual sterile fashion. Next, an 8mm incision was made in line with the 11th rib along the lateral border of the rectus. Pneumoperitoneum was achieved with a Veress needle. Next, an 8mm port was placed for the camera. At this point, the left robotic port was placed off the costal margin. Two right hand robotic ports were then placed with one between the anterior superior iliac spine and the hip and the other one just caudal to the camera port. Last the 12 mm household assistant port was placed inferior and medial to the camera port. The robot was then docked. The spleen was then dissected off of Gerota's fascia. Next the left colon was dissected off of Gerota's fascia. At this point the left gonadal vein was identified and it was traced cephalad to its insertion into the left renal vein. This was carefully dissected and just inferior to the renal vein, the left renal artery was identified. This was also carefully dissected. Next I had our hay rake operator administer 12.5g of mannitol. Gerota's fascia was then opened and I defatted the kidney. On the inferior and lateral aspect of the kidney the tumor was seen. Ultrasound was then utilized to juan luis the boundaries of the mass. Next 2 bulldog clamps were placed on the renal artery and we began resecting the mass. The mass was resected completely and it appeared that we had a good margin. Once the mass was removed, the renorrhaphy was performed first by ligating all vessels in the base of resection with a #2-0 vicryl suture using figure of eight stitches. The capsule of the kidney was then reapproximated using #0-vicryl suture with Weck clips to cinch down the suture. Once this was done the clamps were removed and hemostasis was excellent. The warm ischemia time was 26 minutes. Next Charline was applied to the resection bed and the tumor was placed in an endocatch bag. A Po Leal drain was positioned just lateral to the kidney. The robot was undocked after confirming hemostasis within the abdomen. The specimen was then extracted from the 12mm port site. A Ashanti Stone fascial closure device was then used to place #0-vicryl free ties through the fascia of the 12mm port site. These ties were then tied down. The abdomen was observed again and there was no bleeding from the left kidney or the hilum. We then removed all the ports under direct vision and there was no bleeding from any of the port sites. At this point, all the incisions were thoroughly irrigated. We then closed the skin of each site using a running #4-0 subcuticular Monocryl stitch. The Po Leal drain was secured to the skin usint #3-0 Ethilon suture. Local anesthetic was then applied to each incision and Dermabond was then applied and this marked the conclusion of the procedure. The patient was then taken out of the left lateral decubitus position, awakened from anesthesia and transported to the recovery room in stable condition. ESTIMATED BLOOD LOSS: 250 mL INTRAOPERATIVE COMPLICATIONS: None SPECIMENS: Left renal neoplasm WARM ISCHEMIA TIME: 26 minutes NORMAL LEFT RENAL PARENCHYMA SPARED: 90% PLAN: The patient will be admitted to the hospital postoperatively and he will be discharged home once his renal function is stable and he is tolerating a regular diet. ASHLI REYES MD Nov 29, 2019 19:15
[2019-11-29 19:18] LABS: HEMATOCRIT 44.2 % (42.0-52.0); HEMOGLOBIN 15.2 g/dl (13.5-17.5); MEAN CORPUSCULAR HEMOGLOBIN 30.8 pg (27.0-33.0); MEAN CORPUSCULAR HGB CONC 34.4 g/dl (32.0-36.5); MEAN CORPUSCULAR VOLUME 89.5 fl (80.0-96.0); PLATELET COUNT, AUTOMATED 212 10^3/uL (150-450); RED BLOOD COUNT 4.94 10^6/uL (4.30-6.10); WHITE BLOOD COUNT 8.7 10^3/uL (4.0-10.0)
[2019-11-29 19:37] LABS: BLOOD UREA NITROGEN 19 MG/DL (7-18); CALCIUM LEVEL 8.9 MG/DL (8.5-10.1); CARBON DIOXIDE LEVEL 27 MEQ/L (21-32); CHLORIDE LEVEL 106 MEQ/L (98-107); CREATININE FOR GFR 1.37 MG/DL (0.70-1.30); GLOMERULAR FILTRATION RATE > 60.0 (>60); GLUCOSE, FASTING 130 MG/DL (70-100); POTASSIUM SERUM 4.1 MEQ/L (3.5-5.1); SODIUM LEVEL 138 MEQ/L (136-145)
[2019-11-29] MEDS ORDERED: oxyCODONE 5MG TAB PO PRN (19:45)
[2019-11-29] MEDS ORDERED: ONDANSETRON 4MG/2ML VIAL IV PRN ×2 (19:45)
[2019-11-29] MEDS ORDERED: LR 1,000 ML IV SCH ×2 (19:45)
[2019-11-29] MEDS ORDERED: fentaNYL 100 MCG/2 ML INJECTION (J3010) IV PRN (19:45)
[2019-11-29 20:30] VITALS: BP 168/113
[2019-11-29] MEDS: DOCUSATE SODIUM 100 MG CAP PO SCH (20:48)
[2019-11-29] MEDS: MORPHINE 2 MG/ML 1ML VIAL (J2270) IV PRN (20:49)
[2019-11-29 21:00] VITALS: BP 169/113; O2SAT 97
[2019-11-29 22:00] VITALS: BP 132/97
[2019-11-29] MEDS: ONDANSETRON 4MG/2ML VIAL IV PRN (22:55)
[2019-11-29] MEDS: ceFAZolin SOD 1 GM in D5W MINI-BAG PLUS 50 ML IV SCH (22:55)
[2019-11-29] MEDS: PERCOCET 5MG/325MG TAB PO PRN (22:56)
[2019-11-29 23:00] VITALS: BP 152/98
[2019-11-30] VITALS: BP 157/98
[2019-11-30 02:00] VITALS: BP 160/98
[2019-11-30] MEDS: PERCOCET 5MG/325MG TAB PO PRN ×5 (04:40→21:06)
[2019-11-30 06:00] VITALS: BP 150/107
[2019-11-30] MEDS: ceFAZolin SOD 1 GM in D5W MINI-BAG PLUS 50 ML IV SCH (06:00)
[2019-11-30] MEDS: NS 1,000 ML IV SCH (06:00)
[2019-11-30] MEDS: DOCUSATE SODIUM 100 MG CAP PO SCH ×2 (07:46→19:33)
[2019-11-30] MEDS: MORPHINE 2 MG/ML 1ML VIAL (J2270) IV PRN ×6 (07:46→22:06)
[2019-11-30] MEDS: ONDANSETRON 4MG/2ML VIAL IV PRN ×2 (07:51→14:08)
[2019-11-30 08:09] LABS: HEMATOCRIT 42.1 % (42.0-52.0); HEMOGLOBIN 14.4 g/dl (13.5-17.5); MEAN CORPUSCULAR HEMOGLOBIN 30.1 pg (27.0-33.0); MEAN CORPUSCULAR HGB CONC 34.2 g/dl (32.0-36.5); MEAN CORPUSCULAR VOLUME 88.1 fl (80.0-96.0); PLATELET COUNT, AUTOMATED 247 10^3/uL (150-450); RED BLOOD COUNT 4.78 10^6/uL (4.30-6.10); WHITE BLOOD COUNT 9.7 10^3/uL (4.0-10.0)
[2019-11-30 08:25] LABS: BLOOD UREA NITROGEN 17 MG/DL (7-18); CALCIUM LEVEL 8.2 MG/DL (8.5-10.1); CARBON DIOXIDE LEVEL 26 MEQ/L (21-32); CHLORIDE LEVEL 107 MEQ/L (98-107); CREATININE FOR GFR 1.18 MG/DL (0.70-1.30); GLOMERULAR FILTRATION RATE > 60.0 (>60); GLUCOSE, FASTING 117 MG/DL (70-100); POTASSIUM SERUM 4.4 MEQ/L (3.5-5.1); SODIUM LEVEL 139 MEQ/L (136-145)
--- NOTE | 2019-11-30 09:13 | IPNPDOC ---
Subjective Review oF Systems Chief Complaint The patient is a 34-year-old male admitted with a reason for visit of Renal Mass. Events since Last Encounter No acute events o/n. Patient notes pain not well controlled. Has not ambulated yet. No n/v. No f/c/ns. Objective Physical Examination General Exam: Alert, Cooperative, No Acute Distress ABDOMEN EXAM: Soft, Tenderness (mild), Other (nondistended; incisions clean/dry/intact; CARLEE w/ serosanguinous output) Skin Exam: Nl turgor and temperature Neuro Exam: Normal Speech Psych Exam: Mental status NL, Mood NL Other physical findings catheter draining clear yellow urine Vital Signs/I&O Vital Signs Date Time Temp Pulse Resp B/P (MAP) Pulse Ox O2 Delivery O2 Flow Rate FiO2 11/30/19 08:47 14 11/30/19 07:57 97.6 85 150/107 96 Nasal Cannula 0.5 I&O- Last 24 Hours up to 6 AM 11/30/19 06:00 Intake Total 2300 ml Output Total 1400 ml Balance 900 ml Laboratory Data Labs 24H Laboratory Tests 2 11/29/19 19:08: Nucleated Red Blood Cells % (auto) 0.0, Anion Gap 5L, Glomerular Filtration Rate > 60.0, Calcium Level 8.9 11/30/19 07:38: Nucleated Red Blood Cells % (auto) 0.0, Anion Gap 6L, Glomerular Filtration Rate > 60.0, Calcium Level 8.2L CBC/BMP Laboratory Tests 11/29/19 19:08 11/30/19 07:38 Assessment/Plan Date Seen The patient was seen on 11/30/19. Patient Summary This is a 34 y/o M POD1 s/p L robotic partial nephrectomy. Having some difficulty w/ pain control, but otherwise clinically looks well. Hb stable at 14.4. Cr 1.2. Good UOP. Normal CARLEE output. Plan/VTE VTE Prophylaxis Ordered?: Yes VTE Exclusion Mechanical Proph: N/A:VTE Prophy Ordered Plan/Urinary Catheter Urinary Catheter: D/C Courtney Plan - d/c IVF - percoet prn pain w/ morphine for BTP - ambulate - SCDs in bed - incentive spirometry - advance diet as tolerated - possible discharge home later today if pain is better controlled ASHLI REYES MD Nov 30, 2019 09:13
[2019-11-30 10:00] VITALS: BP 144/98
[2019-11-30 14:00] VITALS: BP 147/97
[2019-11-30 22:00] VITALS: BP 161/85
[2019-12-01] MEDS: MORPHINE 2 MG/ML 1ML VIAL (J2270) IV PRN (00:39)
[2019-12-01] MEDS: PERCOCET 5MG/325MG TAB PO PRN ×3 (01:19→11:18)
[2019-12-01 02:00] VITALS: BP 152/80
[2019-12-01 06:00] VITALS: BP 162/89
[2019-12-01] MEDS: ONDANSETRON 4MG/2ML VIAL IV PRN (06:25)
[2019-12-01 07:04] LABS: HEMATOCRIT 40.6 % (42.0-52.0); HEMOGLOBIN 13.9 g/dl (13.5-17.5); MEAN CORPUSCULAR HGB CONC 34.2 g/dl (32.0-36.5); MEAN CORPUSCULAR VOLUME 90.4 fl (80.0-96.0); PLATELET COUNT, AUTOMATED 183 10^3/uL (150-450); RED BLOOD COUNT 4.49 10^6/uL (4.30-6.10); WHITE BLOOD COUNT 8.1 10^3/uL (4.0-10.0)
[2019-12-01 07:32] LABS: BLOOD UREA NITROGEN 20 MG/DL (7-18); CALCIUM LEVEL 8.5 MG/DL (8.5-10.1); CARBON DIOXIDE LEVEL 27 MEQ/L (21-32); CHLORIDE LEVEL 109 MEQ/L (98-107); CREATININE FOR GFR 1.16 MG/DL (0.70-1.30); GLOMERULAR FILTRATION RATE > 60.0 (>60); GLUCOSE, FASTING 108 MG/DL (70-100); POTASSIUM SERUM 4.1 MEQ/L (3.5-5.1); SODIUM LEVEL 139 MEQ/L (136-145)
[2019-12-01 08:30] VITALS: O2SAT 97
[2019-12-01] MEDS: DOCUSATE SODIUM 100 MG CAP PO SCH (08:36)
--- NOTE | 2019-12-01 12:05 | IPNPDOC ---
Subjective Review oF Systems Chief Complaint The patient is a 34-year-old male admitted with a reason for visit of Renal Mass. Events since Last Encounter No acute events o/n. Pain better controlled. Mild nausea but no vomiting. Ambulating better. Tolerating diet. Had a bm this morning. No f/c/ns. Objective Physical Examination General Exam: Alert, Cooperative, No Acute Distress ABDOMEN EXAM: Soft, Tenderness (mild), Other (nondistended; incisions clean /dry/intact; CARLEE w/ serosanguinous output) Skin Exam: Nl turgor and temperature Neuro Exam: Normal Speech Psych Exam: Mental status NL, Mood NL Vital Signs/I&O Vital Signs Date Time Temp Pulse Resp B/P (MAP) Pulse Ox O2 Delivery O2 Flow Rate FiO2 12/01/19 11:18 18 Room Air 12/01/19 08:30 97 12/01/19 06:00 98.4 96 162/89 (113) 11/30/19 10:00 0.5 I&O- Last 24 Hours up to 6 AM 12/01/19 06:00 Intake Total 2280 ml Output Total 1950 ml Balance 330 ml Laboratory Data Labs 24H Laboratory Tests 2 12/01/19 06:50: Nucleated Red Blood Cells % (auto) 0.0, Anion Gap 3L, Glomerular Filtration Rate > 60.0, Calcium Level 8.5 CBC/BMP Laboratory Tests 12/01/19 06:50 Assessment/Plan Date Seen The patient was seen on 12/01/19. Patient Summary This is a 34 y/o M POD2 s/p L robotic partial nephrectomy. Hb stable at 13.9. Cr 1.2. Good UOP. Plan/VTE VTE Prophylaxis Ordered?: Yes VTE Exclusion Mechanical Proph: N/A:VTE Prophy Ordered Plan - d/c CARLEE drain - percocet prn pain - ambulate - regular diet - discharge home today ASHLI REYES MD Dec 01, 2019 12:05
[2019-12-01] MEDS ORDERED: DOCU100C16 PO (12:14)
[2019-12-01] MEDS ORDERED: PERCOCET PO (12:14)
--- NOTE | 2019-12-04 11:36 | DS ---
DATE OF ADMISSION: 11/29/2019 DATE OF DISCHARGE: 12/01/2019 ADMISSION DIAGNOSIS: Left renal neoplasm. DISCHARGE DIAGNOSIS: Left renal cell carcinoma. ADMITTING PHYSICIAN: Vince Fam MD DISCHARGING PHYSICIAN: Vince Fam MD PROCEDURE PERFORMED: Left robotic assisted laparoscopic partial nephrectomy on 11/29/2019. HISTORY OF PRESENT ILLNESS: This is a 34-year-old male who underwent the above- listed procedure on 11/29/2019 and was admitted to the hospital postoperatively. HOSPITALIZATION COURSE: The patient was admitted to the hospital on 11/29/2019 after undergoing surgery. His postoperative course was notable mainly for challenging pain control. On postoperative day #1, his hemoglobin was within normal limits at 14 and his serum creatinine was 1.1. He had excellent urine output. His Courtney catheter was removed on postoperative day #1 and he voided well without any difficulty. He did, of note, have some difficulty managing his pain with IV pain medication and oral pain medication. By postoperative day #2, he was no longer requiring IV pain medication. His hemoglobin remained relatively stable and was 13.9. His serum creatinine was 1.2 and he continued to have excellent urine output. On postoperative day #2, he was tolerating a regular diet and urinating well. Since his pain was controlled, he was deemed ready for discharge home. His Po Leal drain was removed prior to discharge. He was discharged home with the plan for him to followup in the urology clinic in approximately 2 weeks for a postoperative visit and to discuss pathology results. HENOK
== END 2019-12-01 14:30 | disposition home or self-care (01) | DRG 442 ==
LOC: M OR 10:44 → M MS5PR 20:15
PROVIDERS: ADMIT Urology; ATTEND Urology
PROC: 8E0W4CZ Robotic Assisted Procedure of Trunk Region, Percutaneous Endoscopic Approach (ICD-10-PCS; 2019-11-29)
PROC: 0TT14ZZ Resection of Left Kidney, Percutaneous Endoscopic Approach (ICD-10-PCS; principal; 2019-11-29 12:45)
DX: C64.2 Malignant neoplasm of left kidney, except renal pelvis (principal)

== ENCOUNTER → 2019-12-13 | Outpatient (REF) | payer OTHER ==
[~2019-12-13] MED LIST changes: +DOCU100C16 PO; -LIDOCAINE 2% 100MG/5ML SDV (FOR ANES.) As Ordered ONE; -LR 1,000 ML IV ONE; -MIDAZOLAM INJ 2MG/2ML VIAL (J2250 PER 1MG) As Ordered ONE; -ONDANSETRON 4MG/2ML VIAL As Ordered ONE; +PERCOCET PO; -ROCURONIUM BROMIDE 50 MG/5 ML VIAL As Ordered ONE; -ceFAZolin SOD 1 GM in D5W MINI-BAG PLUS 50 ML IV ONE; -ceFAZolin SOD 2 GM in IV 1 EA IV ONE; -dexameTHASONE 4 MG/ML 1ML VIAL (J1100 PER 1MG) As Ordered ONE; -fentaNYL 250 MCG/5 ML INJECTION (J3010) As Ordered ONE; -propofoL 200 MG/20 ML VIAL As Ordered ONE
[2019-12-13 13:56] LABS: BLOOD UREA NITROGEN 17 MG/DL (7-18); CARBON DIOXIDE LEVEL 28 MEQ/L (21-32); CHLORIDE LEVEL 108 MEQ/L (98-107); CREATININE FOR GFR 1.11 MG/DL (0.70-1.30); GLOMERULAR FILTRATION RATE > 60.0 (>60); GLUCOSE, FASTING 99 MG/DL (70-100); POTASSIUM SERUM 4.5 MEQ/L (3.5-5.1); SODIUM LEVEL 141 MEQ/L (136-145)
[2019-12-13 14:07] LABS: HEMATOCRIT 45.9 % (42.0-52.0); HEMOGLOBIN 15.7 g/dl (13.5-17.5); MEAN CORPUSCULAR HEMOGLOBIN 30.6 pg (27.0-33.0); MEAN CORPUSCULAR HGB CONC 34.2 g/dl (32.0-36.5); MEAN CORPUSCULAR VOLUME 89.5 fl (80.0-96.0); PLATELET COUNT, AUTOMATED 305 10^3/uL (150-450); RED BLOOD COUNT 5.13 10^6/uL (4.30-6.10); WHITE BLOOD COUNT 5.4 10^3/uL (4.0-10.0)
== END ==
LOC: M LABSMT 09:28
PROVIDERS: ATTEND Urology
DX: C64.2 Malignant neoplasm of left kidney, except renal pelvis (principal)

== ENCOUNTER → 2020-05-06 | Outpatient (CLI) | payer OTHER ==
[~2020-05-06] MED LIST changes: -LISI-542 PO; +LISI-898 PO
--- NOTE | 2020-05-06 10:55 | REPPI ---
INDICATION: ROUTINE CXR COMPARISON: 11/21/2019 TECHNIQUE: PA and lateral. FINDINGS: The mediastinum and cardiac silhouette are normal. The lung edwards are clear and without acute consolidation, effusion, or pneumothorax. The skeletal structures are intact and normal. IMPRESSION: No acute cardiopulmonary process. <Electronically signed by Benson Lau > 05/06/20 [id number]
== END ==
LOC: M PLAIMG 10:32
PROVIDERS: ATTEND Family Medicine
DX: R05 Cough (principal)

== ENCOUNTER 2020-05-16 23:30 | Emergency (ER) | payer OTHER ==
[~2020-05-16] VITALS: Ht 185.4 cm; Wt 179.5 kg
[2020-05-17 00:42] LABS: BASO % 0.4 % (0.0-1.0); EOS # 0.2 10^3/uL (0.0-0.5); EOS % 2.8 % (0.0-3.0); HEMATOCRIT 45.1 % (42.0-52.0); HEMOGLOBIN 15.6 g/dl (13.5-17.5); LYMPH # 2.4 10^3/uL (1.5-5.0); LYMPH % 33.9 % (24.0-44.0); MEAN CORPUSCULAR HEMOGLOBIN 31.3 pg (27.0-33.0); MEAN CORPUSCULAR HGB CONC 34.6 g/dl (32.0-36.5); MEAN CORPUSCULAR VOLUME 90.4 fl (80.0-96.0); MONO # 0.6 10^3/uL (0.0-0.8); MONO % 7.9 % (2.0-8.0); NEUTROPHILS # 3.9 10^3/uL (1.5-8.5); NEUTROPHILS % 54.9 % (36.0-66.0); PLATELET COUNT, AUTOMATED 231 10^3/uL (150-450); RED BLOOD COUNT 4.99 10^6/uL (4.30-6.10); WHITE BLOOD COUNT 7.1 10^3/uL (4.0-10.0)
[2020-05-17 01:12] LABS: ALBUMIN 3.8 GM/DL (3.2-5.2); ALT/SGPT 69 U/L (12-78); BILIRUBIN,DIRECT < 0.1 MG/DL (0.0-0.2); BILIRUBIN,TOTAL 0.2 MG/DL (0.2-1.0); LIPASE 216 U/L (73-393); TOTAL PROTEIN 6.9 GM/DL (6.4-8.2)
[2020-05-17] MEDS ORDERED: KETOROLAC 30 MG/ML 1ML VIAL IV ONE (01:25)
--- NOTE | 2020-05-17 01:58 | REPVR ---
PROCEDURE INFORMATION: Exam: CT Abdomen And Pelvis Without Contrast Exam date and time: 05/17/2020 1:22 AM Age: 34 years old Clinical indication: Abdominal pain; Flank; Right; Additional info: Right flank pain/hx stones TECHNIQUE: Imaging protocol: Computed tomography of the abdomen and pelvis without contrast. Axial, coronal and sagittal reformatted images were created and reviewed. Radiation optimization: All CT scans at this facility use at least one of these dose optimization techniques: automated exposure control; mA and/or kV adjustment per patient size (includes targeted exams where dose is matched to clinical indication); or iterative reconstruction. COMPARISON: CT ABD PELVIS W/O CONTRAST 01/01/2019 4:44 PM FINDINGS: Liver: Mild hepatic steatosis. Gallbladder and bile ducts: No radiodense gallstones. No biliary ductal dilatation. Pancreas: Unremarkable. Spleen: Unremarkable. Adrenal glands: Normal. No mass. Kidneys and ureters: Nonobstructing right renal calc nephrosis. Postsurgical changes in the left kidney. Stomach and bowel: No bowel wall thickening. No obstruction. No pneumatosis. Appendix: Normal. Intraperitoneal space: No free fluid. No organized fluid collection. No free air. Vasculature: Unremarkable. No aneurysm. Lymph nodes: No pathologically enlarged lymph nodes. Urinary bladder: Unremarkable as visualized. Reproductive: Unremarkable. Bones/joints: No acute osseous abnormality. Mild degenerative changes. Soft tissues: Unremarkable. IMPRESSION: 1. Limited noncontrast examination without CT evidence of acute intra-abdominal or pelvic pathology. 2. Additional findings, as above. Electronically signed by: Eliot Breaux On 05/17/2020 01:58:16 AM
[2020-05-17 02:41] VITALS: BP 152/86
== END 2020-05-17 02:43 | disposition home or self-care (01) ==
LOC: M ED 23:30
DX: R10.9 Unspecified abdominal pain (principal); F17.200 Nicotine dependence, unspecified, uncomplicated; I10 Essential (primary) hypertension; Z87.442 Personal history of urinary calculi; Z90.5 Acquired absence of kidney
CPT/HCPCS: 74176; 80047; 80076; 81001; 83690; 85025; 96374; 99284; J1885

== ENCOUNTER 2020-07-08 16:51 | Emergency (ER) | payer OTHER ==
[2020-07-08] MEDS ORDERED: IBUP200C90 PO (16:58)
[2020-07-08] MEDS ORDERED: ASPIRIN 81 MG CHEW TABLET PO ONE (17:15)
[2020-07-08 17:36] LABS: BASO % 0.3 % (0.0-1.0); EOS # 0.2 10^3/uL (0.0-0.5); HEMATOCRIT 47.8 % (42.0-52.0); HEMOGLOBIN 16.7 g/dl (13.5-17.5); LYMPH % 33.9 % (24.0-44.0); MEAN CORPUSCULAR HEMOGLOBIN 31.1 pg (27.0-33.0); MEAN CORPUSCULAR HGB CONC 34.9 g/dl (32.0-36.5); MONO # 0.3 10^3/uL (0.0-0.8); MONO % 5.7 % (2.0-8.0); NEUTROPHILS # 3.4 10^3/uL (1.5-8.5); NEUTROPHILS % 56.6 % (36.0-66.0); PLATELET COUNT, AUTOMATED 239 10^3/uL (150-450); RED BLOOD COUNT 5.37 10^6/uL (4.30-6.10)
[2020-07-08 18:00] LABS: ERYTHROCYTE SEDIMENTATION RATE 2 mm/hr (0-15)
--- NOTE | 2020-07-08 18:00 | REP ---
INDICATION: CHEST PAIN. COMPARISON: None. TECHNIQUE: Portable FINDINGS: The technique utilized in obtaining the radiograph has magnified the cardiac silhouette and accentuated the interstitial markings. The superior mediastinal structures are midline. The cardiac silhouette is unremarkable in size, shape, and position. The diaphragmatic surfaces of the lungs are regular, and the costophrenic angles are clear. The pulmonary edwards are clear. The imaged osseous structures are intact. IMPRESSION: There is no acute cardiopulmonary disease. <Electronically signed by Giovanny Estrada > 07/08/20 [id number]
[2020-07-08 18:13] LABS: ALBUMIN 4.1 GM/DL (3.2-5.2); ALT/SGPT 60 U/L (12-78); BILIRUBIN,DIRECT 0.1 MG/DL (0.0-0.2); BILIRUBIN,TOTAL 0.3 MG/DL (0.2-1.0); BLOOD UREA NITROGEN 16 MG/DL (7-18); C REACTIVE PROTEIN QUANTITATIV 0.33 MG/DL (0.00-0.30); CALCIUM LEVEL 9.8 MG/DL (8.5-10.1); CARBON DIOXIDE LEVEL 30 MEQ/L (21-32); CHLORIDE LEVEL 108 MEQ/L (98-107); CK-MB VALUE MASS 1.1 NG/ML (<3.6); CPK CREATINE PHOSPHOKINASE 204 U/L (39-308); CREATININE FOR GFR 1.09 MG/DL (0.70-1.30); GLOMERULAR FILTRATION RATE > 60.0 (>60); GLUCOSE, FASTING 74 MG/DL (70-100); MB/CK RELATIVE INDEX 0.54 (< OR =4); POTASSIUM SERUM 4.3 MEQ/L (3.5-5.1); SODIUM LEVEL 142 MEQ/L (136-145); TOTAL PROTEIN 7.2 GM/DL (6.4-8.2); TROPONIN I < 0.02 NG/ML (< 0.10)
[2020-07-08 20:16] VITALS: BP 142/76
--- NOTE | 2020-07-09 07:43 | ECGEPIP ---
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
== END 2020-07-08 20:31 | disposition home or self-care (01) ==
LOC: M ED 16:51
DX: R07.9 Chest pain, unspecified (principal); I10 Essential (primary) hypertension; K58.9 Irritable bowel syndrome, unspecified; F17.200 Nicotine dependence, unspecified, uncomplicated

== ENCOUNTER → 2020-08-15 | Outpatient (CLI) | payer OTHER ==
[~2020-08-15] MED LIST changes: +IBUP200C90 PO
--- NOTE | 2020-08-15 13:23 | REP ---
INDICATION: RENAL CELL CA LT KIDNEY. COMPARISON: 09/21/2019. TECHNIQUE: Real-time sonographic evaluation of the kidneys is performed. FINDINGS: Renal cortical echogenicity pattern is normal bilaterally and contours are smooth. There is no evidence of hydronephrosis, cyst, mass, or large calculus in either kidney. The right kidney measures 12.7 x 6.5 x 6.7 cm. Left renal dimensions are 10.2 x 5.8 x 5.5 cm. The urinary bladder is not well distended. IMPRESSION: No hydronephrosis or other significant renal abnormality bilaterally. <Electronically signed by Tomas Hansen > 08/15/20 [id number]
== END ==
LOC: M RAD 12:47
PROVIDERS: ATTEND Urology
DX: C64.2 Malignant neoplasm of left kidney, except renal pelvis (principal)

== ENCOUNTER → 2020-08-18 | Outpatient (CLI) | payer OTHER | LOC: M PLARAD 17:26 | PROVIDERS: ATTEND Orthopaedic Surgery | DX: M75.21 Bicipital tendinitis, right shoulder (principal) ==

== ENCOUNTER 2020-09-11 16:58 | Inpatient (IN) | payer OTHER ==
[~2020-09-11] VITALS: Ht 185.4 cm; Wt 172.0 kg
[2020-09-11] MEDS ORDERED: TAMS1CAP17 (17:15)
[2020-09-11] MEDS ORDERED: HYDR-4571 (17:15)
[2020-09-11 20:30] LABS: BASO % 0.3 % (0.0-1.0); EOS # 0.2 10^3/uL (0.0-0.5); HEMATOCRIT 43.5 % (42.0-52.0); HEMOGLOBIN 15.3 g/dl (13.5-17.5); LYMPH # 1.6 10^3/uL (1.5-5.0); MEAN CORPUSCULAR HEMOGLOBIN 31.4 pg (27.0-33.0); MEAN CORPUSCULAR HGB CONC 35.2 g/dl (32.0-36.5); MEAN CORPUSCULAR VOLUME 89.1 fl (80.0-96.0); MONO # 0.5 10^3/uL (0.0-0.8); MONO % 8.3 % (2.0-8.0); NEUTROPHILS # 3.7 10^3/uL (1.5-8.5); NEUTROPHILS % 61.2 % (36.0-66.0); PLATELET COUNT, AUTOMATED 238 10^3/uL (150-450); RED BLOOD COUNT 4.88 10^6/uL (4.30-6.10)
[2020-09-11 20:55] LABS: ALBUMIN 3.8 GM/DL (3.2-5.2); ALT/SGPT 58 U/L (12-78); BILIRUBIN,DIRECT < 0.1 MG/DL (0.0-0.2); BILIRUBIN,TOTAL 0.2 MG/DL (0.2-1.0); BLOOD UREA NITROGEN 20 MG/DL (7-18); CALCIUM LEVEL 9.1 MG/DL (8.5-10.1); CARBON DIOXIDE LEVEL 27 MEQ/L (21-32); CHLORIDE LEVEL 111 MEQ/L (98-107); CREATININE FOR GFR 1.34 MG/DL (0.70-1.30); GLOMERULAR FILTRATION RATE > 60.0 (>60); GLUCOSE, FASTING 90 MG/DL (70-100); LIPASE 258 U/L (73-393); POTASSIUM SERUM 4.5 MEQ/L (3.5-5.1); SODIUM LEVEL 143 MEQ/L (136-145); TOTAL PROTEIN 6.9 GM/DL (6.4-8.2)
[2020-09-11] MEDS ORDERED: TAMSULOSIN 0.4 MG CAP PO SCH (21:00)
[2020-09-11] MEDS ORDERED: KETOROLAC 30 MG/ML 1ML VIAL IV ONE (21:05)
[2020-09-11] MEDS ORDERED: NS 500 ML IV ONE (21:05)
[2020-09-11] MEDS ORDERED: MORPHINE 4 MG/ML 1ML VIAL/SYRINGE (J2270) IV ONE (22:10)
--- NOTE | 2020-09-11 22:31 | REPVR ---
PROCEDURE INFORMATION: Exam: CT Abdomen And Pelvis Without Contrast Exam date and time: 09/11/2020 9:33 PM Age: 35 years old Clinical indication: Other: Flank pain TECHNIQUE: Imaging protocol: Computed tomography of the abdomen and pelvis without contrast. Axial, coronal and sagittal reformatted images were created and reviewed. Radiation optimization: All CT scans at this facility use at least one of these dose optimization techniques: automated exposure control; mA and/or kV adjustment per patient size (includes targeted exams where dose is matched to clinical indication); or iterative reconstruction. COMPARISON: CT ABD PELVIS W/O CONTRAST 05/17/2020 1:33 AM FINDINGS: Liver: Diffuse hepatic steatosis. 1.5 cm simple cyst in the right hepatic lobe. Gallbladder and bile ducts: No radiodense gallstones. No biliary ductal dilatation. Pancreas: Unremarkable. Spleen: Unremarkable. Adrenal glands: Normal. No mass. Kidneys and ureters: Mild to moderate right-sided hydroureteronephrosis and perinephric/periureteral edema, secondary to a 6 mm mid to distal right ureteral calculus (axial image 125 and coronal image 70). Postsurgical changes in the left kidney. Stomach and bowel: No bowel wall thickening. No obstruction. No pneumatosis. Appendix: Normal. Intraperitoneal space: No free fluid. No organized fluid collection. No free air. Vasculature: Unremarkable. No aneurysm. Lymph nodes: No pathologically enlarged lymph nodes. Urinary bladder: Unremarkable as visualized. Reproductive: Unremarkable. Bones/joints: No acute osseous abnormality. Soft tissues: Unremarkable. IMPRESSION: 1. Mild to moderate right-sided hydroureteronephrosis and perinephric/periureteral edema, secondary to a 6 mm mid to distal right ureteral calculus. 2. Additional findings, as above. Electronically signed by: Eliot Breaux On 09/11/2020 22:30:51 PM
--- NOTE | 2020-09-12 00:56 | HPEPDOC ---
[facility] Medical History & Physical Date of Admission Sep 12, 2020 Date of Service: Sep 12, 2020 Primary Care Physician: CLAYTON SHAH MD Attending Physician: MARIZA HERNDON MD History and Physical TIME OF SERVICE: 12:55AM CHIEF COMPLAINT: Back pain HISTORY OF PRESENT ILLNESS: Mr. Duran, a 35-year-old gentleman, has a history of recurrent kidney stones; for several weeks he has been having lower back pain and hematuria off and on and was diagnosed with a right ureteral c alculi. He was instructed to schedule an appointment with Dr. Fam but has been fairly busy with attending to various matters including his 5 children, therefore he was unable to schedule appointment. Over the last couple of days his back pain became worse and was different from the back pain he had in the past that was related to kidney stones. The back pain was more intense and he thought that he might of "broken my back". The hematuria has resolved and he has not had fevers or chills, nevertheless he decided to come to the hospital for evaluation. CT scan confirmed the presence of right-sided hydroureteronephrosis with perinephric and periureteral edema secondary to a 6 mm distal right ureteral calculus; CIRO Edouard discussed the case with Dr. Hortoni will place a stent later on today. 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 HOME MEDICATIONS: Please see below. PHYSICAL EXAMINATION: Vital Signs Date Time Temp Pulse Resp B/P (MAP) Pulse Ox O2 Delivery O2 Flow Rate FiO2 09/11/20 16:58 97.8 90 18 133/63 (86) 97 09/11/20 22:29 Room Air GENERAL APPEARANCE: well nourished and developed / NAD HEENT: EOMI CARDIOVASCULAR: RRR/NMRG LUNGS: CTAB on RA ABDOMEN: contour convex/ soft & NT w palpation MUSCULOSKELETAL: NCAT / ROMIx 4 extremities and back/he does not have CVA tenderness/he does not have lower back pain with percussion INTEGUMENT: He has not flushed or diaphoretic NEUROLOGICAL: CN 2-12 intact / speech not dysarthric PSYCHIATRIC: A&O x3 /able to understand and follow all commands LABORATORY DATA: IMAGING: CT abdomen and pelvis IMPRESSION: 1. Mild to moderate right-sided hydroureteronephrosis and perinephric/periureteral edema, secondary to a 6 mm mid to distal right ureteral calculus. 2. Additional findings, as above. MICROBIOLOGY: The respiratory panel is negative ASSESSMENT: Mr. Duran is a 35-year-old gentleman with a history of partial nephrectomy to manage L sided renal CA, recurrent nephrolithiasis, IBS, fatty liver & obesity who was admitted for management of hydroureteronephrosis secondary to obstructing stone. PLAN: 1. Right-sided hydroureteronephrosis with obstructing calculi Plan: Admit to medical floor/n.p.o./IV fluids/morphine for pain/follow-up with Dr. Lai (procedure scheduled late in the afternoon) 2 Mild renal insufficiency He does not quite meet the criteria for ACE Plan: Avoid nephrotoxins/follow-up BMP 3 Elevated blood pressure The patient denies having a diagnosis of essential hypertension Plan: Monitor vitals/follow-up with PCP for ambulatory blood pressure monitor 4 History of RCC Plan: Follow-up with Dr. Fam for surveillance 5 Tobacco use Plan: Nicotine patch /smoking cessation education 6 Class III obesity Complicates care Plan follow-up A1c/he can follow-up with his PCP to discuss lifestyle modifications plus or minus bariatric surgery DVT PROPHYLAXIS: n/a he is ambulatory in his Kevin score is only one-point therefore pharmacological prophylaxis is not indicated DISPOSITION: home after at least 2 midnight's stay, including time spent in the ER Allergies Coded Allergies: No Known Allergies (Verified , 11/26/18) MARIZA HERNDON MD Sep 12, 2020 00:56
[2020-09-12] MEDS ORDERED: MOM 30ML SUSPENSION UDC PO PRN (01:00)
[2020-09-12] MEDS ORDERED: MAALOX 30 ML SUSP *UDC PO PRN (01:00)
[2020-09-12] MEDS ORDERED: ACETAMINOPHEN TAB 650MG DOSE (2X325MG) PO PRN (01:00)
[2020-09-12] MEDS: LR 1,000 ML IV SCH ×2 (01:22→11:03)
[2020-09-12 01:44] LABS: HEMOGLOBIN A1c 4.9 %
[2020-09-12 03:31] LABS: RSV AMPLIFICATION NEGATIVE (NEGATIVE)
[2020-09-12] MEDS: MORPHINE 2 MG/ML 1ML VIAL (J2270) IV PRN ×4 (03:35→10:59)
[2020-09-12 03:50] VITALS: BP 151/78
[2020-09-12] MEDS: ONDANSETRON 4MG/2ML VIAL IV PRN ×2 (04:19→10:59)
[2020-09-12] MEDS ORDERED: IBUP1TAB7 PO (05:14)
[2020-09-12] MEDS ORDERED: HYDR-4571 PO (05:14)
[2020-09-12] MEDS ORDERED: FLOM0.4C39 PO ×2 (05:14→18:54)
[2020-09-12 05:51] LABS: HEMATOCRIT 43.2 % (42.0-52.0); HEMOGLOBIN 14.9 g/dl (13.5-17.5); MEAN CORPUSCULAR HEMOGLOBIN 31.4 pg (27.0-33.0); MEAN CORPUSCULAR HGB CONC 34.5 g/dl (32.0-36.5); MEAN CORPUSCULAR VOLUME 90.9 fl (80.0-96.0); PLATELET COUNT, AUTOMATED 222 10^3/uL (150-450); RED BLOOD COUNT 4.75 10^6/uL (4.30-6.10); WHITE BLOOD COUNT 6.5 10^3/uL (4.0-10.0)
[2020-09-12 06:00] VITALS: BP 116/75
[2020-09-12 06:20] LABS: BLOOD UREA NITROGEN 22 MG/DL (7-18); CARBON DIOXIDE LEVEL 31 MEQ/L (21-32); CHLORIDE LEVEL 112 MEQ/L (98-107); GLOMERULAR FILTRATION RATE > 60.0 (>60); GLUCOSE, FASTING 70 MG/DL (70-100); POTASSIUM SERUM 4.2 MEQ/L (3.5-5.1); SODIUM LEVEL 146 MEQ/L (136-145)
[2020-09-12] MEDS ORDERED: NICOTINE 14 MG/24 HR TRANSDERMAL TD SCH (09:00)
--- NOTE | 2020-09-12 10:47 | IPNPDOC ---
Text Note Date of Service The patient was seen on 09/12/20. NOTE Patient seen and examined at bedside chart reviewed labs reviewed Patient is comfortable at the present time in no apparent distress he is n.p.o. and awaiting placement of ureteral stents by Dr. Lai today. Continue present care and will continue monitoring patient pre and postop VS,Fishbone, I+O VS, Fishbone, I+O Laboratory Tests 09/11/20 20:00 09/12/20 05:23 Vital Signs Date Time Temp Pulse Resp B/P (MAP) Pulse Ox O2 Delivery O2 Flow Rate FiO2 09/12/20 08:11 18 Room Air 09/12/20 06:00 97.9 56 116/75 (37) 94 I&O- Last 24 Hours up to 6 AM 09/12/20 06:00 Intake Total 900 ml Output Total 150 ml Balance 750 ml ALBERTO GRANADOS MD Sep 12, 2020 10:47
[2020-09-12] MEDS: MORPHINE 4 MG/ML 1ML VIAL/SYRINGE (J2270) IV PRN ×2 (12:43→15:24)
[2020-09-12 14:00] VITALS: BP 115/76
[2020-09-12] MEDS ORDERED: CONRAY-60 60% 50ML VIAL (Q9961) As Ordered ONE (15:28)
--- NOTE | 2020-09-12 15:35 | SMCUROLCON ---
Urology Consultation General Date of Consultation 09/12/20 Reason For Consultation right ureteral stone History of Present Illness 35yo wm. H/o stones. Back pain rather than typical flank pain. Presented to er. Obstructing right ureteral stone by ct. Admitted because of pain and possible stent placement. Past Medical History Medical History stones and stone surgeries rcc s/p partial left nephrectomy obesity fatty liver ibs Surgical Hstory stone surgeries partial left nephrectomy Family History Family History father with stones Social History Social History admits to tobacco and alcohol girlfriend, 5 children Medications Current Medications no stone medications Current Medications Medications (Trade) Dose Ordered Sig/Roly Route PRN Reason Start Time Stop Time Status Last Admin Dose Admin Acetaminophen (Tylenol Tab) 650 mg Q4H PRN PO MILD PAIN or TEMP > 101 09/12/20 01:00 Al Hydrox/Mg Hydrox/Simethicone (Mylanta) 30 ml DAILY PRN PO DYSPEPSIA 09/12/20 01:00 Home Med (Med Rec Complete!) ASDIRECTED XX 09/12/20 05:15 09/12/20 05:16 DC Lactated Ringer's 1,000 ml @ 100 mls/hr Q10H IV 09/12/20 01:00 09/12/20 11:03 Magnesium Hydroxide (Milk Of Magnesia) 30 ml DAILY PRN PO CONSTIPATION 09/12/20 01:00 Morphine Sulfate (Morphine Sulfate Inj) 2 mg Q2H PRN IV PAIN 4-10 09/12/20 01:00 09/12/20 12:05 DC 09/12/20 10:59 Morphine Sulfate (Morphine Sulfate Inj) 4 mg Q2H PRN IV PAIN 4-10 09/12/20 13:00 09/12/20 15:24 Nicotine (Nicoderm Cq 14mg) 1 patch DAILY TD 09/12/20 09:00 09/12/20 09:55 Ondansetron HCl (ZOFRAN INJection) 4 mg Q4HP PRN IV NAUSEA OR VOMITING 09/12/20 04:00 09/12/20 10:59 Tamsulosin HCl (Flomax) 0.4 mg QHS PO 09/11/20 21:00 Allergies Allergies: Coded Allergies: No Known Allergies (Verified , 11/26/18) Review of Systems General: Denies: Chills Constitutional: Denies: Fever Eyes: Denies: Vision change ENT: Denies: Ear Pain Skin: Denies: Rash Pulmonary: Denies: Dyspnea Cardiovascular: Denies Chest Pain Gastrointestinal: Denies: Abdominal Pain Genitourinary: Denies: Dysuria Hematologic: Denies: Bruising Endocrine: Denies: Polydipsia Musculoskeletal: Reports: Back Pain Neurological: Denies: Weakness Psych: Reports: Mood Normal Physical Examination General Exam: Alert, Cooperative, Other (obese wm in nad) EYE EXAM: Conjunctiva & lids normal ENT EXAM: Atraumatic Neck Exam: Supple Chest Exam: Normal air movement Heart Exam: Rate Normal Abdomen Exam: Soft Extremity Exam: No: Cyanosis Skin Exam: Nl turgor and temperature Neuro Exam: Normal Speech Psych Exam: Mental status NL Vital Signs/I&O Vital Signs Date Time Temp Pulse Resp B/P (MAP) Pulse Ox O2 Delivery O2 Flow Rate FiO2 09/12/20 15:24 20 Room Air 09/12/20 06:00 97.9 56 116/75 (89) 94 I&O- Last 24 Hours up to 6 AM 09/12/20 05:59 Intake Total 500 ml Output Total 150 ml Balance 350 ml Laboratory Data 24H Labs Laboratory Tests 2 09/11/20 17:20: Urine Color YELLOW, Urine Appearance CLEAR, Urine pH 6.0, Urine Specific [place] 1.018, Urine Protein NEGATIVE, Urine Glucose (UA) NEGATIVE, Urine Ketones NEGATIVE, Urine Blood 1+H, Urine Nitrite NEGATIVE, Urine Bilirubin NEGATIVE, Urine Urobilinogen 0.2, Urine Leukocyte Esterase NEGATIVE, Urine WBC (Auto) 6H, Urine RBC (Auto) 2, Urine Hyaline Casts (Auto) 0, Urine Bacteria (Auto) NEGATIVE, Urine Squamous Epithelial Cells 0, Urine Mucus (Auto) SMALL, Urine Sperm (Auto) 09/11/20 20:00: Immature Granulocyte % (Auto) 0.2, Neutrophils (%) (Auto) 61.2, Lymphocytes (%) (Auto) 27.0, Monocytes (%) (Auto) 8.3H, Eosinophils (%) (Auto) 3.0, Basophils (%) (Auto) 0.3, Neutrophils # (Auto) 3.7, Lymphocytes # (Auto) 1.6, Monocytes # (Auto) 0.5, Eosinophils # (Auto) 0.2, Basophils # (Auto) 0.0, Nucleated Red Blood Cells % (auto) 0.0, Anion Gap 5L, Glomerular Filtration Rate > 60.0, Estimated Mean Plasma Glucose 94, Hemoglobin A1c 4.9, Calcium Level 9.1, Total Bilirubin 0.2, Direct Bilirubin < 0.1, Aspartate Amino Transf (AST/SGOT) 22, Alanine Aminotransferase (ALT/SGPT) 58, Alkaline Phosphatase 69, Total Protein 6.9, Albumin 3.8, Albumin/Globulin Ratio 1.2, Lipase 258 09/11/20 20:11: POC Glucose (Misc Panel) 94, POC Sodium (Misc Panel) 143, POC Potassium (Misc Panel) 4.3, POC Chloride (Misc Panel) 106, POC Total CO2 (Misc Panel) 23.0, POC Blood Urea Nitrogen (Misc Panel 22, POC Ionized Calcium (Misc Panel) 4.9, POC Creatinine (Misc Panel) 1.3, POC Hematocrit (Misc Panel) 43.0 09/12/20 02:09: Coronavirus (COVID-19)(PCR) NEGATIVE, Influenza Type A (RT-PCR) NEGATIVE, Influ abigail Type B (RT-PCR) NEGATIVE, Respiratory Syncytial Virus (PCR) NEGATIVE 09/12/20 05:23: Nucleated Red Blood Cells % (auto) 0.0, Anion Gap 3L, Glomerular Filtration Rate > 60.0, Calcium Level 9.0 CBC/BMP Laboratory Tests 09/11/20 20:00 09/12/20 05:23 Assessment right ureteral stone, still having pain requiring pain medication since admitted plan is cysto with right stent placement ureteroscopy some other time pt should consider medications such as hctz and pot citrate to prevent stone pt admits to not following Dr. Fam's diet suggestions, won't give up coffee or Mountain Dew all d/w pt IVÁN TEJADA MD Sep 12, 2020 15:35
[2020-09-12] MEDS ORDERED: ONDANSETRON 4MG/2ML VIAL As Ordered ONE (15:46)
[2020-09-12] MEDS ORDERED: dexameTHASONE 4 MG/ML 1ML VIAL (J1100 PER 1MG) As Ordered ONE (15:46)
[2020-09-12] MEDS ORDERED: propofoL 200 MG/20 ML VIAL As Ordered ONE (15:46)
[2020-09-12] MEDS ORDERED: LIDOCAINE 2% 100MG/5ML SDV (FOR ANES.) As Ordered ONE (15:46)
[2020-09-12] MEDS ORDERED: KETOROLAC 60MG 2ML VIAL As Ordered ONE (15:46)
[2020-09-12] MEDS ORDERED: fentaNYL 100 MCG/2 ML INJECTION (J3010) As Ordered ONE (15:47)
[2020-09-12] MEDS ORDERED: MIDAZOLAM INJ 2MG/2ML VIAL (J2250 PER 1MG) As Ordered ONE (15:47)
[2020-09-12] MEDS ORDERED: CIPROFLOXACIN 400 MG in IV 1 EA IV ONE (16:30)
--- NOTE | 2020-09-12 16:30 | IPNPDOC ---
Date Seen The patient was seen on 09/12/20. Progress Note s/p cysto with right stent placement ureteroscopy in the future (not this admit) pt can be discharged home from gu standpoint please send pt home on Cipro x 4 days, Pyridium prn, oxybutynin prn and pain medication prn will order dose of IV Cipro now thank you [phone] VS, I&O, 24H, [facility] Vital Signs/I&O Vital Signs Date Time Temp Pulse Resp B/P (MAP) Pulse Ox O2 Delivery O2 Flow Rate FiO2 09/12/20 15:24 20 Room Air 09/12/20 14:00 97.8 67 115/76 (89) 97 I&O- Last 24 Hours up to 6 AM 09/12/20 06:00 Intake Total 900 ml Output Total 150 ml Balance 750 ml Laboratory Data 24H LABS Laboratory Tests 2 09/11/20 17:20: Urine Color YELLOW, Urine Appearance CLEAR, Urine pH 6.0, Urine Specific [place] 1.018, Urine Protein NEGATIVE, Urine Glucose (UA) NEGATIVE, Urine Ketones NEGATIVE, Urine Blood 1+H, Urine Nitrite NEGATIVE, Urine Bilirubin NEGATIVE, Urine Urobilinogen 0.2, Urine Leukocyte Esterase NEGATIVE, Urine WBC (Auto) 6H, Urine RBC (Auto) 2, Urine Hyaline Casts (Auto) 0, Urine Bacteria (Auto) NEGATIVE, Urine Squamous Epithelial Cells 0, Urine Mucus (Auto) SMALL, Urine Sperm (Auto) 09/11/20 20:00: Immature Granulocyte % (Auto) 0.2, Neutrophils (%) (Auto) 61.2, Lymphocytes (%) (Auto) 27.0, Monocytes (%) (Auto) 8.3H, Eosinophils (%) (Auto) 3.0, Basophils (%) (Auto) 0.3, Neutrophils # (Auto) 3.7, Lymphocytes # (Auto) 1.6, Monocytes # (Auto) 0.5, Eosinophils # (Auto) 0.2, Basophils # (Auto) 0.0, Nucleated Red Blood Cells % (auto) 0.0, Anion Gap 5L, Glomerular Filtration Rate > 60.0, E stimated Mean Plasma Glucose 94, Hemoglobin A1c 4.9, Calcium Level 9.1, Total Bilirubin 0.2, Direct Bilirubin < 0.1, Aspartate Amino Transf (AST/SGOT) 22, Alanine Aminotransferase (ALT/SGPT) 58, Alkaline Phosphatase 69, Total Protein 6.9, Albumin 3.8, Albumin/Globulin Ratio 1.2, Lipase 258 09/11/20 20:11: POC Glucose (Misc Panel) 94, POC Sodium (Misc Panel) 143, POC Potassium (Misc Panel) 4.3, POC Chloride (Misc Panel) 106, POC Total CO2 (Misc Panel) 23.0, POC Blood Urea Nitrogen (Misc Panel 22, POC Ionized Calcium (Misc Panel) 4.9, POC Creatinine (Misc Panel) 1.3, POC Hematocrit (Misc Panel) 43.0 09/12/20 02:09: Coronavirus (COVID-19)(PCR) NEGATIVE, Influenza Type A (RT-PCR) NEGATIVE, Influenza Type B (RT-PCR) NEGATIVE, Respiratory Syncytial Virus (PCR) NEGATIVE 09/12/20 05:23: Nucleated Red Blood Cells % (auto) 0.0, Anion Gap 3L, Glomerular Filtration Rate > 60.0, Calcium Level 9.0 CBC/BMP Laboratory Tests 09/11/20 20:00 09/12/20 05:23 IVÁN TEJADA MD Sep 12, 2020 16:30
--- NOTE | 2020-09-12 16:39 | ROOPDOC ---
[facility] Report Of Operation Report of Operation DATE OF PROCEDURE: 09/12/20 PREPROCEDURE DIAGNOSES: [right ureteral stone]. POSTPROCEDURE DIAGNOSES: [same]. PROCEDURE PERFORMED: [cysto fluoro retrograde stent (right)]. SURGEON: [Joelle], PROSTHETICS TECHNICIAN: [none], ANESTHESIA: [general]. ESTIMATED BLOOD LOSS: Approximately [0] mL. COMPLICATIONS: [none]. REMARKS: [35yo wm with right ureteral stone. Pain despite pain medication. Stent placement arranged. Informed consent obtained. Risks discussed including infection, pain, bleeding, scarring, failure of surgery, need for more surgery, injury to gu tract and others]. FINDINGS: SPECIMENS REMOVED: [none] PROCEDURE NOTE: . DESCRIPTION OF PROCEDURE: [Discussed surgery with pt. He wished to proceed. Brought to OR. General anesthesia secured. Time out performed. Dorsal litho p osition. Well padded. Prep'd and draped in sterile fashion. Cystoscopy performed with rigid scope. No stone in bladder. Retrograde performed on right using 5fr open ended catheter. Stone seemed to be about 2/3 down. Contrast injected under fluoroscopy. Fluoroscopy used intermittently. Some images saved. Wire passed up ureter and 6fr multilength stent placed. Bladder emptied and scope removed. No complications]. IVÁN TEJADA MD Sep 12, 2020 16:39
--- NOTE | 2020-09-12 17:08 | REP ---
INDICATION: FLUORO GUIDANCE. COMPARISON: None. TECHNIQUE: Two fluoroscopic spot views of the abdomen and pelvis were obtained in my absent[place] during right-sided double pigtail stent placement. 8 seconds of fluoroscopy time was provided. FINDINGS: The proximal portion of the stent is in the region of the renal pelvis on the right and the distal portion is in the region of the urinary bladder on the right. IMPRESSION: As above <Electronically signed by Giovanny Estrada > 09/12/20 [id number]
[2020-09-12 17:10] VITALS: BP 147/90
[2020-09-12] MEDS ORDERED: LR 1,000 ML IV SCH (17:10)
[2020-09-12] MEDS ORDERED: oxyCODONE 5MG TAB PO PRN (17:10)
[2020-09-12] MEDS ORDERED: ONDANSETRON 4MG/2ML VIAL IV PRN (17:10)
[2020-09-12] MEDS ORDERED: fentaNYL 100 MCG/2 ML INJECTION (J3010) IV PRN (17:10)
[2020-09-12] MEDS ORDERED: CIPR-249 PO (18:15)
[2020-09-12] MEDS ORDERED: PYRI1TAB5 PO (18:15)
[2020-09-12] MEDS ORDERED: NICO14PA TD (18:15)
--- NOTE | 2020-09-12 18:22 | DS.PDOC ---
Discharge Summary General Date of Admission Sep 11, 2020 at 16:59 Date of Discharge 09/12/20 Attending Physician: ALBERTO GRANADOS MD Specialist/Consultants Involve: IVÁN TEJADA MD Discharge Summary PROCEDURES PERFORMED DURING STAY: None. ADMITTING DIAGNOSES: 1.Right distal ureter kidney stone with hydronephrosis. DISCHARGE DIAGNOSES: 1.Right distal ureter kidney stone with hydronephrosis s/p cystoscopy with stent placement. COMPLICATIONS/CHIEF COMPLAINT: Phong, Hydronephrosis. HISTORY OF PRESENT ILLNESS:. 35 years old white male admitted with right flank pain, and CT scan showed right distal ureteral stone with hydronephrosis and was admitted for urology evaluation and possible stent placement. HOSPITAL COURSE: Patient was admitted with right flank pain was diagnosed with right distal ureteral stone with hydronephrosis. Patient was kept n.p.o. started on IV fluids and pain management. Patient was seen by Dr. Chacko now s/p cysto with right stent placement ureteroscopy in the future (not this admit) as an outpatient with Dr. Yap in 1 to 2 weeks Patient will be discharged home on p.o. Cipro Pyridium and will continue his home pain meds And advised to continue intake of increased liquids and water. Patient has been cleared for discharge from urology. DISCHARGE MEDICATIONS: Please see below. ALLERGIES: Please see below. PHYSICAL EXAMINATION ON DISCHARGE: VITAL SIGNS: Please see below. GENERAL: Within normal limits HEENT: PERRLA extraocular muscles intact NECK: Supple negative with a negative lymphadenopathy CARDIOVASCULAR EXAMINATION: S1-S2 regular RESPIRATORY EXAMINATION: Clear to A&P ABDOMINAL EXAMINATION: Benign EXTREMITIES: No clubbing sinus edema SKIN: Normal NEUROLOGICAL EXAMINATION: No focal motor or sensory deficit PSYCHIATRIC EXAMINATION: Within normal limit LABORATORY DATA: Please see below. IMAGING: As per radiology reports PROGNOSIS: Good ACTIVITY: As tolerated. DIET: Regular DISCHARGE PLAN: Follow-up with Dr. Aguirre as an outpatient DISPOSITION: Home DISCHARGE INSTRUCTIONS: 1. As per discharge instructions. ITEMS TO FOLLOWUP ON ON OUTPATIENT: 1. Follow-up with Dr. Yap as an outpatient in 1 to 2 weeks. DISCHARGE CONDITION: Stable. TIME SPENT ON DISCHARGE: 28 minutes. Vital Signs/I&Os Vital Signs Date Time Temp Pulse Resp B/P (MAP) Pulse Ox O2 Delivery O2 Flow Rate FiO2 09/12/20 17:10 97.4 61 16 147/90 (109) 96 Room Air 09/12/20 17:05 2.0 I&O- Last 24 Hours up to 6 AM 09/12/20 06:00 Intake Total 900 ml Output Total 150 ml Balance 750 ml Laboratory Data Labs 24H Laboratory Tests 2 09/11/20 20:00: Immature Granulocyte % (Auto) 0.2, Neutrophils (%) (Auto) 61.2, Lymphocytes (%) (Auto) 27.0, Monocytes (%) (Auto) 8.3H, Eosinophils (%) (Auto) 3.0, Basophils (%) (Auto) 0.3, Neutrophils # (Auto) 3.7, Lymphocytes # (Auto) 1.6, Monocytes # (Auto) 0.5, Eosinophils # (Auto) 0.2, Basophils # (Auto) 0.0, Nucleated Red Blood Cells % (auto) 0.0, Anion Gap 5L, Glomerular Filtration Rate > 60.0, Estimated Mean Plasma Glucose 94, Hemoglobin A1c 4.9, Calcium Level 9.1, Total Bilirubin 0.2, Direct Bilirubin < 0.1, Aspartate Amino Transf (AST/SGOT) 22, Alanine Aminotransferase (ALT/SGPT) 58, Alkaline Phosphatase 69, Total Protein 6.9, Albumin 3.8, Albumin/Globulin Ratio 1.2, Lipase 258 09/11/20 20:11: POC Glucose (Misc Panel) 94, POC Sodium (Misc Panel) 143, POC Potassium (Misc Panel) 4.3, POC Chloride (Misc Panel) 106, POC Total CO2 (Misc Panel) 23.0, POC Blood Urea Nitrogen (Misc Panel 22, POC Ionized Calcium (Misc Panel) 4.9, POC Creatinine (Misc Panel) 1.3, POC Hematocrit (Misc Panel) 43.0 09/12/20 02:09: Coronavirus (COVID-19)(PCR) NEGATIVE, Influenza Type A (RT-PCR) NEGATIVE, Influenza Type B (RT-PCR) NEGATIVE, Respiratory Syncytial Virus (PCR) NEGATIVE 09/12/20 05:23: Nucleated Red Blood Cells % (auto) 0.0, Anion Gap 3L, Glomerular Filtration Rate > 60.0, Calcium Level 9.0 CBC/BMP Laboratory Tests 09/11/20 20:00 09/12/20 05:23 Discharge Medications Scheduled Ciprofloxacin HCl (Cipro) 500 Mg Tablet, 1 TAB PO BID Nicotine (Nicotine Patch) 14 Mg Patch.td24, 1 PATCH TD DAILY Phenazopyridine HCl (Pyridium) 200 Mg Tablet, 200 MG PO TID for urinary d iscomfort Tamsulosin HCl (Flomax) 0.4 Mg Capsule, 0.4 MG PO QHS, (Reported) Scheduled PRN Hydrocodone/Acetaminophen (Hydrocodone-Acetamin 5-325 mg) 1 Each Tablet, 1 TAB PO BID PRN for PAIN LEVEL 6-10, (Reported) Ibuprofen (Ibuprofen) 800 Mg Tablet, 800 MG PO TID PRN for PAIN LEVEL 1-5, (Repo rted) Allergies Coded Allergies: No Known Allergies (Verified , 11/26/18) ALBERTO GRANADOS MD Sep 12, 2020 18:22
[2020-09-12] MEDS ORDERED: OXYC1TAB23 PO (18:54)
[2020-09-12] MEDS ORDERED: oxyBUTYnin 5 MG TAB PO SCH (21:00)
[2020-09-12] MEDS ORDERED: PHENAZOPYRIDINE 100 MG TAB PO SCH (21:00)
== END 2020-09-12 19:23 | disposition home or self-care (01) | DRG 465 ==
LOC: M ED 16:58 → M ED INP 16:59 → M MSPAV 09-12 03:49
PROVIDERS: ADMIT Internal Medicine; ATTEND Internal Medicine
PROC: 0T768DZ Dilation of Right Ureter with Intraluminal Device, Via Natural or Artificial Opening Endoscopic (ICD-10-PCS; principal; 2020-09-12 17:00)
DX: N13.1 Hydronephrosis with ureteral stricture, not elsewhere classified (principal); K76.0 Fatty (change of) liver, not elsewhere classified; Z85.528 Personal history of other malignant neoplasm of kidney; Z90.5 Acquired absence of kidney; K58.9 Irritable bowel syndrome, unspecified; E66.9 Obesity, unspecified; R03.0 Elevated blood-pressure reading, without diagnosis of hypertension; F17.200 Nicotine dependence, unspecified, uncomplicated; Z20.822 Contact with and (suspected) exposure to COVID-19; N28.89 Other specified disorders of kidney and ureter

== ENCOUNTER → 2020-09-23 | Outpatient (REF) | payer OTHER ==
[~2020-09-23] MED LIST changes: +HYDR-4571; +HYDR-4571 PO; +IBUP1TAB7 PO; +NICO14PA TD; +PYRI1TAB5 PO; +TAMS1CAP17
[2020-09-23 19:31] LABS: APPEARANCE, URINE MANUAL TURBID (CLEAR); COLOR, URINE MANUAL RED (YELLOW)
[2020-09-23 19:33] LABS: PROTEIN, URINE MANUAL 3+ mg/dL (NEGATIVE)
[2020-09-23 19:34] LABS: BILIRUBIN, URINE MANUAL NEGATIVE (NEGATIVE); BLOOD URINE MANUAL POSITIVE (NEGATIVE); GLUCOSE, URINE (UA) MANUAL NEGATIVE (NEGATIVE); KETONE, URINE MANUAL NEGATIVE (NEGATIVE); LEUKOCYTE ESTERASE, URINE MAN POSITIVE (NEGATIVE); NITRITE, URINE MANUAL NEGATIVE (NEGATIVE); UROBILINOGEN, URINE MANUAL NORMAL (NORMAL)
[2020-09-23 19:36] LABS: RBC, URINE TNTC /hpf (0-3)
[2020-09-23 19:39] LABS: SQUAMOUS EPITHELIAL CELL URINE NONE SEEN /hpf (SMALL AMT)
[2020-09-23 19:40] LABS: BACTERIA, URINE NONE SEEN; HYALINE CAST, URINE NONE SEEN /lpf (0-1)
== END ==
LOC: M SFHCPLAZ 18:08
PROVIDERS: ATTEND Family Medicine
DX: R10.9 Unspecified abdominal pain (principal)

== ENCOUNTER → 2020-09-23 | Outpatient (CLI) | payer OTHER ==
[2020-09-23 13:38] LABS: BASO % 0.5 % (0.0-1.0); EOS # 0.2 10^3/uL (0.0-0.5); EOS % 3.1 % (0.0-3.0); HEMATOCRIT 44.6 % (42.0-52.0); HEMOGLOBIN 15.7 g/dl (13.5-17.5); LYMPH # 1.5 10^3/uL (1.5-5.0); LYMPH % 25.8 % (24.0-44.0); MEAN CORPUSCULAR HGB CONC 35.2 g/dl (32.0-36.5); MEAN CORPUSCULAR VOLUME 88.1 fl (80.0-96.0); MONO # 0.5 10^3/uL (0.0-0.8); MONO % 9.2 % (2.0-8.0); NEUTROPHILS # 3.6 10^3/uL (1.5-8.5); NEUTROPHILS % 61.2 % (36.0-66.0); PLATELET COUNT, AUTOMATED 229 10^3/uL (150-450); RED BLOOD COUNT 5.06 10^6/uL (4.30-6.10); WHITE BLOOD COUNT 5.9 10^3/uL (4.0-10.0)
[2020-09-23 14:08] LABS: BLOOD UREA NITROGEN 18 MG/DL (7-18); CALCIUM LEVEL 9.1 MG/DL (8.5-10.1); CARBON DIOXIDE LEVEL 29 MEQ/L (21-32); CHLORIDE LEVEL 108 MEQ/L (98-107); CREATININE FOR GFR 1.17 MG/DL (0.70-1.30); GLOMERULAR FILTRATION RATE > 60.0 (>60); GLUCOSE, FASTING 89 MG/DL (70-100); POTASSIUM SERUM 4.7 MEQ/L (3.5-5.1); SODIUM LEVEL 141 MEQ/L (136-145)
== END ==
LOC: M LAB 13:13
PROVIDERS: ATTEND Family Medicine
DX: R10.9 Unspecified abdominal pain (principal)

== ENCOUNTER → 2020-09-29 | Outpatient (CLI) | payer OTHER | LOC: M LABSMTC 12:02 | PROVIDERS: ATTEND Anesthesiology | DX: Z01.812 Encounter for preprocedural laboratory examination (principal); Z20.822 Contact with and (suspected) exposure to COVID-19 ==

== ENCOUNTER 2020-10-03 09:22 | Day surgery (SDC) | payer OTHER ==
[~2020-10-03] VITALS: Ht 185.4 cm; Wt 167.7 kg
[~2020-10-03 09:22] MED LIST changes: +LIDOCAINE 1% MDV 20ML VIAL SQ PRN; +LR 1,000 ML IV ONE; +ceFAZolin SOD 2 GM in IV 1 EA IV ONE
[2020-10-03] MEDS ORDERED: propofoL 200 MG/20 ML VIAL As Ordered ONE (10:10)
[2020-10-03] MEDS ORDERED: LIDOCAINE 2% 100MG/5ML SDV (FOR ANES.) As Ordered ONE (10:10)
[2020-10-03] MEDS ORDERED: dexameTHASONE 4 MG/ML 1ML VIAL (J1100 PER 1MG) As Ordered ONE (10:10)
[2020-10-03] MEDS ORDERED: ONDANSETRON 4MG/2ML VIAL As Ordered ONE (10:10)
[2020-10-03] MEDS ORDERED: MIDAZOLAM INJ 2MG/2ML VIAL (J2250 PER 1MG) As Ordered ONE (10:11)
[2020-10-03] MEDS ORDERED: fentaNYL 100 MCG/2 ML INJECTION (J3010) As Ordered ONE (10:11)
[2020-10-03] MEDS ORDERED: CONRAY-60 60% 50ML VIAL (Q9961) As Ordered ONE (11:06)
[2020-10-03] MEDS ORDERED: METOCLOPRAMIDE INJ 10MG/2ML VIAL (J2765 PER 1) As Ordered ONE (11:22)
[2020-10-03] MEDS ORDERED: ACETAMINOPHEN 1000MG 100ML IV BTL (OFIRMEV) (J0131 PER 10MG) As Ordered ONE (11:54)
--- NOTE | 2020-10-03 12:42 | REP ---
INDICATION: RIGHT STENT PLACEMENT. COMPARISON: 09/12/2020. TECHNIQUE: Two C-arm views abdomen and pelvis. FINDINGS: Contrast partially opacifies a dilated right pelvocaliceal system. A right ureteral stent is placed. The proximal end is in the right renal pelvis and the distal end is in the urinary bladder. IMPRESSION: 10 seconds of fluoroscopy time was utilized. <Electronically signed by Tomas Hansen > 10/03/20 [id number]
[2020-10-03] MEDS ORDERED: OXYB5TAB10 PO (12:43)
[2020-10-03] MEDS ORDERED: OXYC1TAB23 PO (12:43)
--- NOTE | 2020-10-03 12:54 | RO ---
OPERATIVE NOTE DATE OF OPERATION: 10/03/2020 PREOPERATIVE DIAGNOSIS: Right ureteral stone. POSTOPERATIVE DIAGNOSIS: right ureteral stone. PROCEDURE: Cystoscopy, right ureteroscopy, laser lithotripsy and basket extraction of stone, right retrograde pyelogram with intraop interpretation of images, right ureteral stent exchange. SURGEON: Vince Fam MD ELECTRICIAN DECK: None. ANESTHESIA: General. OPERATIVE INDICATIONS: This is a 35-year-old male who was found to have an obstructing 4-5 mm mid right ureteral stone recently on CT scan. He had right ureteral stent placed at that time. He was brought to the operating room today to have the stone treated. DESCRIPTION OF PROCEDURE: The patient was brought to the operating room and general anesthesia was induced. Prophylactic antibiotics were induced. He was placed in dorsal lithotomy position and prepped and draped in usual sterile fashion. Rigid cystoscope was inserted in urethral meatus and advanced into the bladder. The right ureteral stent was then withdrawn until the distal end was protruding from urethral meatus. Guidewire was advanced up the stent and the stent was completely removed. I then went up the right collecting system with short semi-rigid ureteroscope and no stones were seen in the proximal or mid ureter. I then removed the short semi-rigid ureteroscope and advanced ureteral access sheath up the right collecting system. I went up the access sheath with flexible ureteroscope and within the proximal ureter the stone was seen. The stone was fragmented into smaller pieces using 272 micron laser fiber and all the fragments were removed using basket. I then examined the right kidney thoroughly. The right kidney was hydronephrotic but there were no additional stones seen. Retrograde pyelogram was performed and was notable for moderate right hydronephrosis, no extravasation. I then withdrew the ureteroscope along with access sheath and no additional stones were seen. I then utilized the guidewire to advance 6-Malay x 22-32 cm JJ ureteral stent up the right collecting system. Wire was removed and there were adequate curls of the stent in right renal pelvis and in the bladder. The bladder was emptied of all fluids and this marked the conclusion of the procedure. The patient was taken out of the dorsal lithotomy position, awakened from anesthesia and transported to the recovery room in stable condition. ESTIMATED BLOOD LOSS: 5 mL. COMPLICATIONS: None. SPECIMEN: Kidney stone. PLAN: The patient will follow up in urology clinic in a few weeks for stent removal.
[2020-10-03] MEDS ORDERED: ONDANSETRON 4MG/2ML VIAL IV PRN (13:00)
[2020-10-03] MEDS ORDERED: MEPERIDINE INJ 25 MG/ML VIAL (J2175) IV PRN (13:00)
[2020-10-03] MEDS ORDERED: LR 1,000 ML IV SCH (13:00)
[2020-10-03] MEDS ORDERED: fentaNYL 100 MCG/2 ML INJECTION (J3010) IV PRN (13:00)
[2020-10-03] MEDS ORDERED: METOCLOPRAMIDE INJ 10MG/2ML VIAL (J2765 PER 1) IV PRN (13:00)
[2020-10-03] MEDS: oxyCODONE 5MG TAB PO PRN ×2 (13:03→13:30)
[2020-10-03] MEDS ORDERED: PERCOCET 5MG/325MG TAB PO PRN (13:05)
[2020-10-03] MEDS ORDERED: oxyBUTYnin 5 MG TAB PO PRN (13:05)
[2020-10-03 14:10] VITALS: BP 132/80
== END 2020-10-03 14:10 | disposition home or self-care (01) ==
LOC: M SDC 09:22
PROVIDERS: ATTEND Urology
DX: N20.1 Calculus of ureter (principal); K58.8 Other irritable bowel syndrome; K21.9 Gastro-esophageal reflux disease without esophagitis; F17.218 Nicotine dependence, cigarettes, with other nicotine-induced disorders; G47.30 Sleep apnea, unspecified; Z79.899 Other long term (current) drug therapy
CPT/HCPCS: 52356; 74420; 82365; 88300; C1769; C1894; C2617; J0131; J0690; J1100; J2250; J2405; J2765; J3010; Q9961

== ENCOUNTER → 2021-01-14 | Outpatient (REF) | payer OTHER ==
[~2021-01-14] MED LIST changes: +HYDR-3713 PO; +IBUP80TA PO; -LIDOCAINE 1% MDV 20ML VIAL SQ PRN; -LR 1,000 ML IV ONE; +OXYB5TAB10 PO; -ceFAZolin SOD 2 GM in IV 1 EA IV ONE
== END ==
LOC: M SFHCPLAZ 12:46
PROVIDERS: ATTEND Family Medicine
DX: J06.9 Acute upper respiratory infection, unspecified (principal)

== ENCOUNTER 2021-03-27 03:01 | Emergency (ER) | payer OTHER ==
[~2021-03-27] VITALS: Ht 185.4 cm; Wt 181.7 kg
[~2021-03-27 03:01] MED LIST changes: -LISI-898 PO; +LISI5TAB11 PO
[2021-03-27 06:55] VITALS: BP 177/81
== END 2021-03-27 06:58 | disposition home or self-care (01) ==
LOC: M ED 03:01
DX: R07.9 Chest pain, unspecified (principal); I10 Essential (primary) hypertension; F17.200 Nicotine dependence, unspecified, uncomplicated

== ENCOUNTER → 2021-11-24 | Outpatient (CLI) | payer OTHER ==
[~2021-11-24] MED LIST changes: +ALBU6.7H6 INH; -PROV108A INH
[2021-11-24 11:59] LABS: BASO % 0.4 % (0.0-1.0); EOS # 0.2 10^3/uL (0.0-0.5); EOS % 2.6 % (0.0-3.0); HEMATOCRIT 47.5 % (42.0-52.0); HEMOGLOBIN 16.8 g/dl (13.5-17.5); LYMPH % 28.2 % (24.0-44.0); MEAN CORPUSCULAR HEMOGLOBIN 31.6 pg (27.0-33.0); MEAN CORPUSCULAR HGB CONC 35.4 g/dl (32.0-36.5); MEAN CORPUSCULAR VOLUME 89.3 fl (80.0-96.0); MONO # 0.6 10^3/uL (0.0-0.8); MONO % 8.4 % (2.0-8.0); NEUTROPHILS # 4.3 10^3/uL (1.5-8.5); NEUTROPHILS % 60.1 % (36.0-66.0); PLATELET COUNT, AUTOMATED 235 10^3/uL (150-450); RED BLOOD COUNT 5.32 10^6/uL (4.30-6.10); WHITE BLOOD COUNT 7.2 10^3/uL (4.0-10.0)
[2021-11-24 12:22] LABS: ALT/SGPT 72 U/L (12-78); BILIRUBIN,TOTAL 0.5 MG/DL (0.2-1.0); BLOOD UREA NITROGEN 22 MG/DL (7-18); CARBON DIOXIDE LEVEL 31 MEQ/L (21-32); CHLORIDE LEVEL 106 MEQ/L (98-107); CHOLESTEROL LEVEL 206 MG/DL (<200); CHOLESTEROL RISK RATIO 5.885 (<5); GLOMERULAR FILTRATION RATE > 60.0 (>60); GLUCOSE, FASTING 104 MG/DL (70-100); HDL CHOLESTEROL 35 MG/DL (>40); LDL CHOLESTEROL 140 MG/DL (<100); NON-HDL-C 171 MG/DL; POTASSIUM SERUM 4.6 MEQ/L (3.5-5.1); SODIUM LEVEL 141 MEQ/L (136-145); TOTAL PROTEIN 7.1 GM/DL (6.4-8.2); TRIGLYCERIDES LEVEL 154 MG/DL (<150)
[2021-11-24 12:54] LABS: TOTAL 25(OH) VITAMIN D 22.9 NG/ML (30.0-100.0)
== END ==
LOC: M LAB 11:15
PROVIDERS: ATTEND Physician Assistant
DX: Z13.220 Encounter for screening for lipoid disorders (principal); R53.83 Other fatigue

== ENCOUNTER → 2022-03-16 | Outpatient (CLI) | payer OTHER ==
[2022-03-16 15:37] LABS: THYROID STIMULATING HORMONE 1.08 uIU/ML (0.55-4.78)
[2022-03-16 15:41] LABS: FREE T4 0.91 NG/DL (0.89-1.76)
== END ==
LOC: M PLALAB 11:51
PROVIDERS: ATTEND Physician Assistant
DX: E66.9 Obesity, unspecified (principal)

== ENCOUNTER → 2022-03-24 | Outpatient (CLI) | payer OTHER | LOC: M PLAIMG 14:18 | PROVIDERS: ATTEND Physician Assistant | DX: M54.2 Cervicalgia (principal) ==

== ENCOUNTER → 2022-04-06 | Outpatient (CLI) | payer OTHER | LOC: M WUC 08:45 | PROVIDERS: ATTEND Urology | DX: E29.1 Testicular hypofunction (principal) ==

== ENCOUNTER 2022-04-30 13:45 | Emergency (ER) | payer OTHER ==
[~2022-04-30] VITALS: Ht 185.4 cm; Wt 193.8 kg
[2022-04-30 13:46] VITALS: BP 172/88
[2022-04-30 14:24] LABS: BASO % 0.5 % (0.0-1.0); EOS # 0.1 10^3/uL (0.0-0.5); EOS % 1.1 % (0.0-3.0); HEMATOCRIT 46.3 % (42.0-52.0); HEMOGLOBIN 16.3 g/dl (13.5-17.5); LYMPH # 1.5 10^3/uL (1.5-5.0); LYMPH % 18.6 % (24.0-44.0); MEAN CORPUSCULAR HEMOGLOBIN 30.5 pg (27.0-33.0); MEAN CORPUSCULAR HGB CONC 35.2 g/dl (32.0-36.5); MEAN CORPUSCULAR VOLUME 86.5 fl (80.0-96.0); MONO # 0.6 10^3/uL (0.0-0.8); MONO % 6.7 % (2.0-8.0); NEUTROPHILS # 5.9 10^3/uL (1.5-8.5); NEUTROPHILS % 72.6 % (36.0-66.0); PLATELET COUNT, AUTOMATED 230 10^3/uL (150-450); RED BLOOD COUNT 5.35 10^6/uL (4.30-6.10); WHITE BLOOD COUNT 8.2 10^3/uL (4.0-10.0)
[2022-04-30 14:55] LABS: LIPASE 54 U/L (12-53)
[2022-04-30 15:01] LABS: ALBUMIN 3.9 G/DL (3.2-5.2); ALKALINE PHOSPHATASE 66 U/L (46-116); ALT/SGPT 89 U/L (7.0-40); AST/SGOT 47 U/L (<34); BILIRUBIN,DIRECT 0.2 MG/DL (<0.4); BILIRUBIN,TOTAL 0.6 MG/DL (0.3-1.2); BLOOD UREA NITROGEN 21 MG/DL (9-23); CALCIUM LEVEL 8.5 MG/DL (8.5-10.1); CARBON DIOXIDE LEVEL 26 MMOL/L (20-31); CHLORIDE LEVEL 106 MMOL/L (98-107); CREATININE FOR GFR 1.24 MG/DL (0.70-1.30); GLOMERULAR FILTRATION RATE > 60.0 (>60); GLUCOSE, FASTING 107 MG/DL (60-100); POTASSIUM SERUM 4.5 MMOL/L (3.5-5.1); SODIUM LEVEL 139 MMOL/L (136-145); TOTAL PROTEIN 7.2 G/DL (5.7-8.2)
[2022-04-30] MEDS ORDERED: FLOM0.4C39 PO (17:04)
[2022-04-30] MEDS ORDERED: KETO10TAB PO (17:04)
[2022-04-30] MEDS ORDERED: ONDANSETRON 4MG ORAL DISINTEGRATING TAB PO ONE (17:05)
[2022-04-30] MEDS ORDERED: KETOROLAC 60MG 2ML VIAL IM ONE (17:05)
== END 2022-04-30 17:23 | disposition home or self-care (01) ==
LOC: M ED 13:45
DX: N13.30 Unspecified hydronephrosis (principal); N21.1 Calculus in urethra; E66.9 Obesity, unspecified; I10 Essential (primary) hypertension; F41.9 Anxiety disorder, unspecified; G47.33 Obstructive sleep apnea (adult) (pediatric); K58.9 Irritable bowel syndrome, unspecified; Z87.442 Personal history of urinary calculi; Z85.528 Personal history of other malignant neoplasm of kidney; Z79.899 Other long term (current) drug therapy
CPT/HCPCS: 74176; 80048; 80076; 81001; 83690; 85025; 96372; 99283; J1885

== ENCOUNTER → 2022-04-30 | Outpatient (CLI) | payer OTHER | LOC: M PLALAB 11:41 | PROVIDERS: ATTEND Urology | DX: E29.1 Testicular hypofunction (principal) ==

== ENCOUNTER 2022-06-03 10:31 | Emergency (ER) | payer OTHER ==
[~2022-06-03] VITALS: Ht 185.4 cm; Wt 198.7 kg
[2022-06-03] MEDS ORDERED: KETOROLAC 30 MG/ML 1ML VIAL IV ONE (12:10)
[2022-06-03 12:31] LABS: BASO # 0.1 10^3/uL (0.0-0.2); BASO % 0.9 % (0.0-1.0); EOS # 0.2 10^3/uL (0.0-0.5); EOS % 2.9 % (0.0-3.0); HEMATOCRIT 46.8 % (42.0-52.0); HEMOGLOBIN 16.2 g/dl (13.5-17.5); LYMPH % 34.5 % (24.0-44.0); MEAN CORPUSCULAR HEMOGLOBIN 30.4 pg (27.0-33.0); MEAN CORPUSCULAR HGB CONC 34.6 g/dl (32.0-36.5); MEAN CORPUSCULAR VOLUME 87.8 fl (80.0-96.0); MONO # 0.6 10^3/uL (0.0-0.8); MONO % 9.5 % (2.0-8.0); NEUTROPHILS # 3.1 10^3/uL (1.5-8.5); PLATELET COUNT, AUTOMATED 212 10^3/uL (150-450); RED BLOOD COUNT 5.33 10^6/uL (4.30-6.10); WHITE BLOOD COUNT 5.9 10^3/uL (4.0-10.0)
[2022-06-03 12:57] LABS: LIPASE 41 U/L (12-53)
[2022-06-03 13:00] LABS: ALBUMIN 3.8 G/DL (3.2-5.2); ALKALINE PHOSPHATASE 80 U/L (46-116); ALT/SGPT 81 U/L (7.0-40); AST/SGOT 35 U/L (<34); BILIRUBIN,DIRECT 0.1 MG/DL (<0.4); BILIRUBIN,TOTAL 0.4 MG/DL (0.3-1.2); BLOOD UREA NITROGEN 21 MG/DL (9-23); CALCIUM LEVEL 9.2 MG/DL (8.5-10.1); CARBON DIOXIDE LEVEL 30 MMOL/L (20-31); CHLORIDE LEVEL 106 MMOL/L (98-107); CREATININE FOR GFR 1.22 MG/DL (0.70-1.30); GLOMERULAR FILTRATION RATE > 60.0 (>60); GLUCOSE, FASTING 97 MG/DL (60-100); POTASSIUM SERUM 4.4 MMOL/L (3.5-5.1); SODIUM LEVEL 140 MMOL/L (136-145); TOTAL PROTEIN 6.9 G/DL (5.7-8.2)
[2022-06-03 13:33] VITALS: BP 141/87
[2022-06-03] MEDS ORDERED: CYCL-707 PO (13:43)
[2022-06-03] MEDS ORDERED: NAPR-837 PO (13:43)
== END 2022-06-03 13:55 | disposition home or self-care (01) ==
LOC: M ED 10:31
DX: M51.37 Other intervertebral disc degeneration, lumbosacral region (principal); Z87.442 Personal history of urinary calculi; Z79.899 Other long term (current) drug therapy
CPT/HCPCS: 76775; 80048; 80076; 81001; 83690; 85025; 96374; 99284; J1885

== ENCOUNTER → 2022-11-03 | Outpatient (CLI) | payer MEDICAID, OTHER ==
[~2022-11-03] MED LIST changes: +CYCL-707 PO; +NAPR-837 PO
[2022-11-03 14:16] LABS: HEMATOCRIT 46.2 % (42.0-52.0)
== END ==
LOC: M LAB 13:43
PROVIDERS: ATTEND Urology
DX: E29.1 Testicular hypofunction (principal)

== ENCOUNTER → 2023-01-05 | Outpatient (CLI) | payer OTHER ==
[~2023-01-05] MED LIST changes: -OXYB5TAB10 PO; +OXYB5TAB11 PO
== END ==
LOC: M RAD 16:03
PROVIDERS: ATTEND Urology
DX: C64.2 Malignant neoplasm of left kidney, except renal pelvis (principal); N20.0 Calculus of kidney

== ENCOUNTER 2023-08-05 13:02 | Emergency (ER) | payer MEDICAID, OTHER ==
[~2023-08-05] VITALS: Ht 185.4 cm; Wt 197.0 kg
[~2023-08-05 13:02] MED LIST changes: +ONDA-282 PO; -ONDA4TAB6 PO; -OXYB5TAB11 PO; +OXYB5TAB14 PO
[2023-08-05 13:41] LABS: BASO % 0.5 % (0.0-1.0); EOS # 0.1 10^3/uL (0.0-0.5); EOS % 0.9 % (0.0-3.0); HEMATOCRIT 46.1 % (42.0-52.0); HEMOGLOBIN 16.5 g/dl (13.5-17.5); LYMPH # 1.6 10^3/uL (1.5-5.0); LYMPH % 28.2 % (24.0-44.0); MEAN CORPUSCULAR HEMOGLOBIN 30.7 pg (27.0-33.0); MEAN CORPUSCULAR HGB CONC 35.8 g/dl (32.0-36.5); MEAN CORPUSCULAR VOLUME 85.7 fl (80.0-96.0); MONO # 0.5 10^3/uL (0.0-0.8); MONO % 8.1 % (2.0-8.0); NEUTROPHILS # 3.5 10^3/uL (1.5-8.5); NEUTROPHILS % 62.1 % (36.0-66.0); PLATELET COUNT, AUTOMATED 210 10^3/uL (150-450); RED BLOOD COUNT 5.38 10^6/uL (4.30-6.10); WHITE BLOOD COUNT 5.7 10^3/uL (4.0-10.0)
[2023-08-05 14:16] LABS: CK-MB VALUE MASS 2.3 NG/ML (<3.6)
[2023-08-05 14:18] LABS: BLOOD UREA NITROGEN 19 MG/DL (9-23); CALCIUM LEVEL 9.5 MG/DL (8.5-10.1); CARBON DIOXIDE LEVEL 28 MMOL/L (20-31); CHLORIDE LEVEL 108 MMOL/L (98-107); CPK CREATINE PHOSPHOKINASE 231 U/L (46-171); CREATININE FOR GFR 1.08 MG/DL (0.70-1.30); GLOMERULAR FILTRATION RATE > 60.0 (>60); GLUCOSE, FASTING 132 MG/DL (60-100); MB/CK RELATIVE INDEX 0.99 (< OR =4); POTASSIUM SERUM 4.4 MMOL/L (3.5-5.1); SODIUM LEVEL 141 MMOL/L (136-145)
[2023-08-05 15:05] LABS: CK-MB VALUE MASS 2.3 NG/ML (<3.6)
[2023-08-05] MEDS ORDERED: ISOVUE-370 76% 100ML VIAL As Ordered ONE (17:00)
[2023-08-05 18:33] VITALS: BP 139/75; TEMP 98.2; O2SAT 95
== END 2023-08-05 18:47 | disposition home or self-care (01) ==
LOC: M ED 13:02
DX: M54.2 Cervicalgia (principal); I10 Essential (primary) hypertension; E78.5 Hyperlipidemia, unspecified; K58.9 Irritable bowel syndrome, unspecified; F17.290 Nicotine dependence, other tobacco product, uncomplicated; Z85.528 Personal history of other malignant neoplasm of kidney
CPT/HCPCS: 36415; 70498; 71045; 71275; 80048; 82550; 82553; 84484; 85025; 93005; 93041; 94760; 99285; Q9967

== ENCOUNTER → 2024-01-04 | Outpatient (CLI) | payer OTHER | LOC: M RAD 09:56 | PROVIDERS: ATTEND Urology | DX: C64.2 Malignant neoplasm of left kidney, except renal pelvis (principal); N20.0 Calculus of kidney ==

== ENCOUNTER → 2024-03-23 | Outpatient (CLI) | payer OTHER ==
[2024-03-23 12:39] LABS: HEMATOCRIT 46.3 % (42.0-52.0); HEMOGLOBIN 16.4 g/dl (13.5-17.5)
[2024-03-23 13:32] LABS: PSA SCREENING 0.56 NG/ML (< 4.00)
== END ==
LOC: M LAB 11:57
PROVIDERS: ATTEND Urology
DX: E29.1 Testicular hypofunction (principal); Z12.5 Encounter for screening for malignant neoplasm of prostate

== ENCOUNTER → 2024-04-04 | Outpatient (CLI) | payer OTHER ==
[2024-04-04 17:18] LABS: APPEARANCE, URINE HAZY (CLEAR); BACTERIA, URINE AUTO NEGATIVE (NEGATIVE); BILIRUBIN, URINE AUTO NEGATIVE (NEGATIVE); BLOOD, URINE BLOOD 2+ (NEGATIVE); COLOR, URINE AMBER (YELLOW); GLUCOSE, URINE (UA) AUTO NEGATIVE (NEGATIVE); KETONE, URINE AUTO 1+ mg/dL (NEGATIVE); LEUKOCYTE ESTERASE, URINE AUTO NEGATIVE (NEGATIVE); MUCUS, URINE SMALL (NEGATIVE); NITRITE, URINE AUTO NEGATIVE (NEGATIVE); PROTEIN, URINE AUTO 1+ mg/dL (NEGATIVE); RBC, URINE AUTO 42 /HPF (0-3); SPECIFIC GRAVITY URINE AUTO 1.025 (1.002-1.035); SQUAMOUS EPITHELIAL CELL UR AU 0 /HPF (0-6); WBC, URINE AUTO 2 /HPF (0-3)
== END ==
LOC: M RAD 16:04
PROVIDERS: ATTEND Urology
DX: N20.0 Calculus of kidney (principal)

== ENCOUNTER 2024-05-11 17:45 | Emergency (ER) | payer OTHER, MEDICAID ==
[~2024-05-11] VITALS: Ht 185.4 cm; Wt 168.1 kg
[2024-05-11 17:47] VITALS: TEMP 99.1; O2SAT 96
[2024-05-11] MEDS: IBUPROFEN 600MG TAB PO ONE (18:28)
[2024-05-11 18:44] VITALS: BP 140/98
[2024-05-11] MEDS ORDERED: CYCL-707 PO (19:17)
[2024-05-11] MEDS ORDERED: IBUP-1022 PO (19:17)
== END 2024-05-11 19:23 | disposition home or self-care (01) ==
LOC: M ED 17:45
DX: S16.1XXA Strain of muscle, fascia and tendon at neck level, initial encounter (principal); S90.01XA Contusion of right ankle, initial encounter; S60.222A Contusion of left hand, initial encounter; V49.40XA Driver injured in collision with unspecified motor vehicles in traffic accident, initial encounter; Y92.014 Private driveway to single-family (private) house as the place of occurrence of the external cause; Y93.89 Activity, other specified; Y99.9 Unspecified external cause status; I10 Essential (primary) hypertension; K58.9 Irritable bowel syndrome, unspecified; Z87.442 Personal history of urinary calculi

== ENCOUNTER 2024-05-21 20:43 | Emergency (ER) | payer MEDICAID, OTHER ==
[~2024-05-21] VITALS: Ht 185.4 cm; Wt 167.1 kg
[~2024-05-21 20:43] MED LIST changes: +IBUP-1022 PO
[2024-05-21 20:44] VITALS: BP 144/89; TEMP 97.8; O2SAT 97
== END 2024-05-21 23:20 | disposition left against medical advice (07) ==
LOC: M ED 20:43
DX: Z53.21 Procedure and treatment not carried out due to patient leaving prior to being seen by health care provider (principal)

== ENCOUNTER → 2024-05-22 | Outpatient (CLI) | payer OTHER ==
[~2024-05-22] MED LIST changes: +IBUP-1114 PO
== END ==
LOC: M WUC 13:03
PROVIDERS: ATTEND Physician Assistant
DX: M25.561 Pain in right knee (principal)

== ENCOUNTER 2024-05-25 08:20 | Day surgery (SDC) | payer OTHER ==
[~2024-05-25] VITALS: Ht 185.4 cm; Wt 163.5 kg
[~2024-05-25 08:20] MED LIST changes: -IBUP-1114 PO
[2024-05-25] MEDS ORDERED: IBUP-1114 PO (08:53)
[2024-05-25] MEDS ORDERED: GLYCOPYRROLATE INJ 0.2 MG/ML 2 ML VIAL As Ordered ONE (08:56)
[2024-05-25] MEDS ORDERED: LIDOCAINE 2% 100MG/5ML SDV (FOR ANES.) As Ordered ONE (08:56)
[2024-05-25] MEDS ORDERED: propofoL 200 MG/20 ML VIAL As Ordered ONE (08:56)
[2024-05-25 09:31] VITALS: TEMP 98.1
[2024-05-25 09:48] VITALS: BP 125/72; O2SAT 95
== END 2024-05-25 10:15 | disposition home or self-care (01) ==
LOC: M OPP 08:20
PROVIDERS: ATTEND Internal Medicine Gastroenterology
DX: D12.6 Benign neoplasm of colon, unspecified (principal); K57.30 Diverticulosis of large intestine without perforation or abscess without bleeding; K64.8 Other hemorrhoids; Z86.0100 Personal history of colon polyps, unspecified; G47.30 Sleep apnea, unspecified; F17.290 Nicotine dependence, other tobacco product, uncomplicated
CPT/HCPCS: 45385; 88305; J1596

== ENCOUNTER → 2024-10-04 | Outpatient (CLI) | payer MEDICAID, OTHER, SELFPAY ==
[~2024-10-04] MED LIST changes: -FLOM0.4C39 PO; +IBUP-1114 PO; +TAMS-18 PO
== END ==
LOC: M LAB 10:31
PROVIDERS: ATTEND Urology
DX: E29.1 Testicular hypofunction (principal); C64.2 Malignant neoplasm of left kidney, except renal pelvis